=== PATIENT | male | born 1940 | race Caucasian/White ===

== ENCOUNTER 2016-12-16 07:50 | Day surgery (SDC) | payer MEDICARE ==
[2016-12-15 08:45] VITALS: BMI 26.5
[~2016-12-16 07:50] MED LIST: ALPRAZolam 0.25 MG TAB PO PRN; ALPRAZolam 0.5 MG TAB PO PRN; ASPIRIN 325 MG TAB PO STA; ATORVASTATIN 80 MG TAB PO STA; LIDOCAINE 1% INJ 10MG/ML (20 ML MDV) ONE; NITROGLYCERIN SL TABS 0.4 MG TAB SUBLINGUAL PRN; SODIUM CHLORIDE 0.9% 1,000 ML in EMPTY BAG 1 BAG IV ONE
[2016-12-16 08:19] VITALS: TEMP 98.1
[2016-12-16] MEDS ORDERED: MIDAZOLAM 2 MG/2 ML VIAL ONE (08:58)
[2016-12-16] MEDS ORDERED: diphenhydrAMINE 50 MG/ML 1 ML VIAL ONE (08:58)
[2016-12-16] MEDS ORDERED: diphenhydrAMINE 50 MG/ML 1 ML VIAL IVP ONE (09:09)
[2016-12-16] MEDS ORDERED: MIDAZOLAM 2 MG/2 ML VIAL IVP ONE (09:09)
[2016-12-16] MEDS ORDERED: LIDOCAINE 2% INJ 20 MG/ML SQ ONE (09:09)
[2016-12-16] MEDS ORDERED: IOHEXOL 350 MG/ML 100 ML BOTTLE INJ ONE (09:25)
[2016-12-16] MEDS ORDERED: SODIUM CHLORIDE 0.9% 1,000 ML IV SCH (09:30)
[2016-12-16] MEDS ORDERED: RX INFO: IV CONTRAST WAS GIVEN 1 EACH MISC MISCELLANE PRN (09:30)
--- NOTE | 2016-12-16 10:17 | CC ---
DATE OF SERVICE: INDICATION: Unstable angina. See my history physical. PROCEDURE NOTE: After explaining risks benifits and alternatives and obtaining informed consent, left heart catheterization and coronary angiogram were performed via the right femoral artery using standard Ron catheters. Patient tolerated the procedure well without any obvious immediate complications. A femoral angiogram was performed and Angio-Seal was deployed for hemostasis. FINDINGS: HEMODYNAMICS: Left ventricular end-diastolic pressure was 8 to 12 mm. There is no significant gradient across the aortic valve. LEFT VENTRICULOGRAM: Left ventriculogram was not performed. ANGIOGRAPHIC DATA: LEFT MAIN CORONARY ARTERY: Left main coronary artery appears calcified but is free of significant stenosis. It divides into left anterior descending coronary artery and circumflex coronary artery. LEFT ANTERIOR DESCENDING CORONARY ARTERY: LAD shows a 90% stenosis in its ostial portion. There is diffuse disease and there is a second lesion, which is about 70% in its midportion. Diag first and seconed have significant disease CIRCUMFLEX CORONARY ARTERY: Circumflex coronary artery is a nondominant vessel but is a large caliber vessel that is free of significant stenosis. RIGHT CORONARY ARTERY: Right coronary artery is a large dominant vessel, tortuous, shows a mild to moderate plaque in the midportion. CONCLUSION: 90% stenosis in the ostial portion of the left anterior descending artery with mild to moderate disease involving mid right coronary artery. PLAN: Patient will need bypass surgery of the LAD. I am going to have the cardiothoracic surgeon review the angiographic data. I am not sure if the RCA lesion is tight enough to be bypassed. MTDD
--- NOTE | 2016-12-16 10:19 | LTR ---
December 16, 2016 RE: James Falcon Dear Magdaleno: I performed cardiac catheterization on James Falcon. A detailed catheterization note is enclosed for your records. In brief the cardiac catheterization shows 90% stenosis involving the ostial portion of the LAD with a moderate stenosis involving mid LAD. There is mild to moderate disease involving mid right coronary artery. Given the proximal nature of the LAD lesion, the patient needs to undergo bypass surgery and I am going to have a cardiothoracic surgeon evaluate the patient. Thank you for giving us the privilege to participate in the care of this pleasant gentleman. Sincerely, KP BOBO MD
[2016-12-16] MEDS ORDERED: MD COMMUNICATION TO PHARMACY 1 EACH MISC PO ONE ×2 (10:29)
[2016-12-16 11:39] LABS: Basophils % (A) 1 %; CH 31.5; CHCM 34.5; Eosinophils # (A) 0.1 k/uL (0-0.7); Eosinophils % (A) 1 %; HCT 43.5 % (39.0-53.0); HDW 2.63; HGB 14.5 gm/dL (13.0-17.5); Luc # (Auto) 0.17; Luc % (Auto) 4; Lymphocytes # (A) 1.2 k/uL (1.0-4.8); Lymphocytes % (A) 25 %; MCH 30.6 pg (25.0-35.0); MCHC 33.4 g/dL (31.0-37.0); MCV 91.6 fL (80.0-100.0); Mean Platelet Volume 7.9; Monocytes # (A) 0.3 k/uL (0-1.0); Monocytes % (A) 6 %; Neutrophils # (A) 2.9 k/uL (1.3-7.7); Neutrophils % (A) 63 %; RBC 4.75 m/uL (4.30-5.90); RDW 12.6 % (11.5-15.5); WBC 4.7 k/uL (3.8-10.6); WBC (Perox) 4.82
[2016-12-16 11:57] LABS: ALT 43 U/L (21-72); AST 26 U/L (17-59); Alkaline Phosphatase 41 U/L (38-126); Anion Gap 9 mmol/L; Blood Urea Nitrogen 14 mg/dL (9-20); Calcium 8.9 mg/dL (8.4-10.2); Carbon Dioxide 27 mmol/L (22-30); Chloride 105 mmol/L (98-107); Cholesterol 120 mg/dL (<200); Glucose 90 mg/dL (74-99); HDL Cholesterol 47 mg/dL (40-60); Magnesium 2.1 mg/dL (1.6-2.3); Non-African American GFR(MDRD) >60 (>60 ml/min/1.73 sqM); Potassium 4.6 mmol/L (3.5-5.1); Sodium 141 mmol/L (137-145); Total Protein 6.4 g/dL (6.3-8.2); Triglycerides 73 mg/dL (<150)
[2016-12-16 12:03] LABS: Partial Thromboplastin Time 21.5 sec (22.0-30.0); Prothrombin Time 10.4 sec (9.0-12.0)
[2016-12-16 12:26] LABS: Hepatitis B Surface Ag Index 0.08
[2016-12-16 12:31] LABS: Hepatitis B Core IgM Index 0.06
[2016-12-16 12:43] LABS: Hepatitis C Virus IgG Index 0.02
[2016-12-16 12:47] LABS: Hepatitis C Virus IgG Ab Negative (Negative)
[2016-12-16 13:09] LABS: Appearance,Urine Clear (Clear); Bilirubin,Urine Negative (Negative); Glucose,Urine (UA) Negative (Negative); Ketones,Urine Negative (Negative); Leukocyte Esterase,Urine Negative (Negative); Nitrite,Urine Negative (Negative); PH, Urine 7.5 (5.0-8.0); Protein,Urine Negative (Negative); Specific Gravity,Urine 1.014 (1.001-1.035); UA Billing (MACRO vs. MICRO) CHEM; Urobilinogen,Urine <2.0 mg/dL (<2.0)
--- NOTE | 2016-12-16 13:41 | P.GSCN ---
<Nancy Fry - Last Filed: 12/16/16 13:39> History of Present Illness Consult date: 12/16/16 Reason for Consult: Evaluation for coronary artery bypass grafting. Requesting physician: Jordi Rizvi History of present illness: This 76-year-old gentleman has been followed by Dr. Rizvi for hypertension and dyslipidemia. He presented to to his office with complaints of chest discomfort 3 episodes which were mild in intensity, came on at rest and relieved spontaneously. He denied palpitations, syncope, diaphoresis, shortness of breath. He had a stress test last year which did not reveal any ischemia.as this chest discomfort was thought to be angina Dr. Riziv sent the patient for cardiac catheterization. The catheterization done 12/16/2016 revealedleft anterior descending coronary artery with 90% stenosis in the ostial portion,along with diffuse disease and a second lesion with about 70% stenosis midportion.the rest of the cath is as follows: Left main coronary artery calcified but free of significant stenosis. It divides into the left anterior descending artery and circumflex coronary artery.circumflex artery is large caliber free of significant stenosis. Right coronary artery is a large dominant artery which shows mild to moderate plaque in the midportion.due to these findings cardiothoracic surgery was consulted for potential coronary artery bypass grafting. Review of Systems 14 point review of systems done and negative except as noted below. - EENT EENT Comment(s): Very hard of hearing. - Cardiovascular Reports as per HPI, Reports high blood pressure Past Medical History Past Medical History: Chest Pain / Angina, CVA/TIA, Hyperlipidemia, Hypertension , Myocardial Infarction ([place]) Additional Past Medical History / Comment(s): CVA 2013-no residual Last Myocardial Infarction Date:: unk History of Any Multi-Drug Resistant Organisms: None Reported Past Surgical History: Appendectomy, Heart Catheterization, Hernia Repair, Joint Replacement Additional Past Surgical History / Comment(s): lt knee replaced Past Anesthesia/Blood Transfusion Reactions: No Reported Reaction Past Psychological History: No Psychological Hx Reported Smoking Status: Former smoker Past Alcohol Use History: Occasional Additional Past Alcohol Use History / Comment(s): quit smoking approx 1999's, smoked approx 50yrs approx 1ppd Past Drug Use History: None Reported - Past Family History Mother Family Medical History: No Reported History Father Family Medical History: No Reported History Medications and Allergies Home Medications Medication Instructions Recorded Confirmed Type Atenolol [Tenormin] 25 mg PO DAILY 12/15/16 12/20/16 History Atorvastatin [Lipitor] 20 mg PO DAILY 12/15/16 12/20/16 History Clopidogrel Bisulfate [Plavix] 75 mg PO DAILY 12/15/16 12/20/16 History Isosorbide Mononitrate ER [Imdur] 30 mg PO DAILY 12/15/16 12/20/16 History Nitroglycerin Sl Tabs [Nitrostat] 0.4 mg SUBLINGUAL Q5M PRN 12/15/16 12/20/16 History Vitamin E 1,000 unit PO DAILY 12/15/16 12/20/16 History amLODIPine [Norvasc] 10 mg PO DAILY 12/15/16 12/20/16 History Allergies Allergy/AdvReac Type Severity Reaction Status Date / Time No Known Allergies Allergy Verified 12/20/16 15:16 Surgical - Exam Vital Signs Temp Pulse Resp BP Pulse Ox 98.1 F 53 L 20 134/62 98 12/16/16 08:16 12/16/16 08:16 12/16/16 08:16 12/16/16 08:16 12/16/16 08:16 - General well developed, well nourished, no distress - Eyes PERRL, normal ocular movement - ENT decreased hearing - Neck no masses - Respiratory normal expansion, normal respiratory effort, clear to auscultation - Cardiovascular Rhythm: regular Heart Sounds: normal: S1, S2 - Abdomen Abdomen: soft, non tender, bowel sounds - Genitourinary deferred - Rectum deferred - Integumentary no rash, no growths, no abnormal pigmentation - Neurologic normal coordination, normal sensation - Musculoskeletal Strength equal bilaterally. Unable to assess gait as patient is on bedrest at this time. - Psychiatric oriented to time, oriented to person, oriented to place, speech is normal Results - Labs 12/16/16 11:25 12/16/16 11:25 Abnormal Lab Results - Last 24 Hours (Table) 12/16/16 Range/Units 11:25 APTT 21.5 L (22.0-30.0) sec Diabetes panel 12/16/16 Range/Units 11:25 Sodium 141 (137-145) mmol/L Potassium 4.6 (3.5-5.1) mmol/L Chloride 105 (98-107) mmol/L Carbon Dioxide 27 (22-30) mmol/L BUN 14 (9-20) mg/dL Creatinine 0.87 (0.66-1.25) mg/dL Glucose 90 (74-99) mg/dL Calcium 8.9 (8.4-10.2) mg/dL AST 26 (17-59) U/L ALT 43 (21-72) U/L Alkaline Phosphatase 41 (38-126) U/L Total Protein 6.4 (6.3-8.2) g/dL Albumin 3.9 (3.5-5.0) g/dL Triglycerides 73 (<150) mg/dL HDL Cholesterol 47 (40-60) mg/dL Thyroid panel 12/16/16 Range/Units 11:25 TSH 1.100 (0.465-4.680) mIU/L Calcium panel 12/16/16 Range/Units 11:25 Calcium 8.9 (8.4-10.2) mg/dL Albumin 3.9 (3.5-5.0) g/dL Pituitary panel 12/16/16 Range/Units 11:25 Sodium 141 (137-145) mmol/L Potassium 4.6 (3.5-5.1) mmol/L Chloride 105 (98-107) mmol/L Carbon Dioxide 27 (22-30) mmol/L BUN 14 (9-20) mg/dL Creatinine 0.87 (0.66-1.25) mg/dL Glucose 90 (74-99) mg/dL Calcium 8.9 (8.4-10.2) mg/dL TSH 1.100 (0.465-4.680) mIU/L Adrenal panel 12/16/16 Range/Units 11:25 Sodium 141 (137-145) mmol/L Potassium 4.6 (3.5-5.1) mmol/L Chloride 105 (98-107) mmol/L Carbon Dioxide 27 (22-30) mmol/L BUN 14 (9-20) mg/dL Creatinine 0.87 (0.66-1.25) mg/dL Glucose 90 (74-99) mg/dL Calcium 8.9 (8.4-10.2) mg/dL Total Bilirubin 1.0 (0.2-1.3) mg/dL AST 26 (17-59) U/L ALT 43 (21-72) U/L Alkaline Phosphatase 41 (38-126) U/L Total Protein 6.4 (6.3-8.2) g/dL Albumin 3.9 (3.5-5.0) g/dL - Imaging Chest x-ray: pending EKG: image reviewed Additional studies: carotid Dopplers, vein mapping, lab work pending Assessment and Plan (1) Coronary artery disease Status: Acute (2) Hypertension Status: Acute (3) Hyperlipidemia Status: Acute (4) History of stroke Status: Acute Plan: 1. Obtain preop testing including lab work, carotid Dopplers, vein mapping, chest x-ray. 2. Plan for coronary artery bypass graft surgery , 12/23/2016 pending preop testing workup. 3. Preop CABG teaching done with patient and granddaughter. 4. Will consult Dr. 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 5. Encouragement of risk factor management. 6. More recommendations as patient progresses. <James Garcia R - Last Filed: 12/20/16 15:44> Surgical - Exam Vital Signs Temp Pulse Resp BP Pulse Ox 98.1 F 53 L 20 134/62 98 12/16/16 08:16 12/16/16 08:16 12/16/16 08:16 12/16/16 08:16 12/16/16 08:16 Results - Labs 12/16/16 11:25 12/16/16 11:25 Assessment and Plan Plan: Reviwed cath, discussed case with Dr Rizvi. Patient interviewed and examined. Met with patient, discussed indications for surgery, risks versus benefits, alternatives, possible complications. All questions answered. CABG next week
[2016-12-16 14:12] VITALS: PULSE 67
[2016-12-16 14:16] VITALS: RESP 20
[2016-12-16 14:17] LABS: Hemoglobin A1C 5.3 % (4.2-6.1)
[2016-12-16 15:18] VITALS: BP 132/75
--- NOTE | 2016-12-16 15:34 | XR ---
EXAMINATION TYPE: XR chest 2V DATE OF EXAM: 12/16/2016 3:26 PM HISTORY: Presurgical clearance. REFERENCE: Previous study dated 01/28/2014. FINDINGS: The lungs are clear. Pleural spaces are clear. Heart size is normal. IMPRESSION: NORMAL CHEST.
--- NOTE | 2016-12-29 10:47 | P.VSCSTY ---
Greater Saphenous Vein Mapping This is bilateral lower extremity greater saphenous vein mapping. Date of service 12/16/2016 Vein quality and ultrasound appearance normal however lower legs on both sides are quite small. Vein size groin right 5 x 7 groin left 6.3 x 6.1 High thigh right 3.6 x 4.7 high thigh left 3.9 x 3.9 Mid thigh right 3.1 x 4.3 mid thigh left to 2.2 x 2.4 Above-knee right to 0.9 x 4.1 above-knee left 2.0 x 2.3 Below knee right 3.2 x 4.1 below-knee left 2.1 x 2.6 Mid calf right 1.5 x 1.8 mid calf left 1.9 x 2.3 Ankle right 1.7 x 2.1 ankle left 1.5 x 1.8 Impression usable bilateral greater saphenous veins. However, below the knee on both sides are very small and may not be usable..
== END 2016-12-16 15:30 | disposition home or self-care (01) ==
LOC: CATHCVL 07:50
PROVIDERS: ATTEND Internal Medicine Cardiovascular Disease
DX: I25.110 Atherosclerotic heart disease of native coronary artery with unstable angina pectoris (principal); Z01.818 Encounter for other preprocedural examination; I10 Essential (primary) hypertension; I77.1 Stricture of artery; E78.5 Hyperlipidemia, unspecified; E78.00 Pure hypercholesterolemia, unspecified; Z87.891 Personal history of nicotine dependence; Z82.49 Family history of ischemic heart disease and other diseases of the circulatory system; Z86.73 Personal history of transient ischemic attack (TIA), and cerebral infarction without residual deficits; Z79.899 Other long term (current) drug therapy
CPT/HCPCS: 99152; 99153 ×2; 94150; 93458; 86900; 86901; 83880; 80061; 80053; 80074; 84443; 83036; 83735; 84484; 85025; 85610; 85730; 86850; 86920; 81003; 87070; 87086; 71020; 93970; C1760; C1894; C1769; J2001; J2250; J1200; Q9967

== ENCOUNTER 2016-12-23 09:30 | Inpatient (IN) | payer MEDICARE ==
[2016-12-24] MEDS ORDERED: PAPAVERINE 360 MG in SODIUM CHLORIDE 0.9% 90 ML IV ONE (05:00)
[2016-12-24] MEDS ORDERED: MAGNESIUM SULFATE MG 500 MG/ML VIAL IV ONE (05:00)
[2016-12-24] MEDS ORDERED: PROTAMINE SULFATE 250 MG in EMPTY BAG 1 BAG IV ONE (05:00)
[2016-12-24] MEDS ORDERED: LACTATED RINGERS 1,000 ML IV ONE (05:00)
[2016-12-24] MEDS ORDERED: HEPARIN SODIUM 1,000 UNIT/ML VIAL IV ONE (05:00)
[2016-12-24] MEDS ORDERED: HEPARIN SODIUM,PORCINE 5,000 UNIT in SODIUM CHLORIDE 0.9% 500 ML IV ONE (05:00)
[2016-12-24] MEDS ORDERED: PHENYLEPHRINE 40 MG in SODIUM CHLORIDE 0.9% 250 ML IV ONE (05:00)
[2016-12-24] MEDS ORDERED: ASPIRIN 325 MG TAB PO ONE (05:00)
[2016-12-24] MEDS ORDERED: ceFAZolin 2,000 MG in SODIUM CHLORIDE 0.9% 30 ML IVPB ONE ×4 (05:00)
[2016-12-24] MEDS ORDERED: INSULIN REGULAR 100 UNIT in SODIUM CHLORIDE 0.9% 100 ML IV ONE (05:00)
[2016-12-24] MEDS ORDERED: NITROGLYCERIN-D5W PMX 25 MG/250 ML BTL IV ONE (05:00)
[2016-12-24] MEDS ORDERED: PROPOFOL 50 ML IV ONE (05:00)
[2016-12-24] MEDS ORDERED: SODIUM BICARB 8.4% 50 ML SYR (1 MEQ/ML) IV ONE (05:00)
[2016-12-24] MEDS ORDERED: CHLORHEXIDINE GLUCONATE 15 ML CUP MUCOUS MEM ONE (05:00)
[2016-12-24] MEDS ORDERED: CARDIOPLEGIC SOLN (K+ 16 MEQ/L 1,000 ML with SODIUM BICARB (1 MEQ/ML) 20 ML, LIDOCAINE ... PERFUSION ONE ×3 (05:00)
[2016-12-24] MEDS ORDERED: NOREPINEPHRINE 4 MG in SODIUM CHLORIDE 0.9% 250 ML IV ONE (05:00)
[2016-12-24] MEDS ORDERED: ATORVASTATIN 10 MG TAB PO ONE (05:00)
[2016-12-24] MEDS ORDERED: ALBUMIN HUMAN 5% 500 ML IVPB ONE (05:00)
[2016-12-24] MEDS ORDERED: PROTAMINE SULFATE 10 MG/ML 25 ML VIAL IV ONE (05:00)
[2016-12-24] MEDS ORDERED: NITROGLYCERIN SL TABS 0.4 MG TAB SUBLINGUAL ONE (05:00)
[2016-12-24] MEDS ORDERED: CLEVIDIPINE BUTYRATE 25 MG in EMPTY BAG 1 BAG IV ONE (05:00)
[2016-12-24] MEDS ORDERED: MUPIROCIN 2% OINT 22 GM TUBE NASAL ONE (05:00)
[2016-12-24] MEDS ORDERED: ALBUMIN HUMAN 25% 50 ML IV ONE (05:00)
[2016-12-24] MEDS ORDERED: CALCIUM CHLORIDE 100 MG/ML 10 ML SYRINGE IV ONE (05:00)
[2016-12-24] MEDS ORDERED: PHENYLEPHRINE-0.9% NACL SYG 1 MG/10 ML SYRINGE IV ONE (05:00)
[2016-12-24] MEDS ORDERED: SODIUM CHLORIDE 0.9% 1,000 ML IV ONE (05:00)
[2016-12-24] MEDS ORDERED: NITROGLYCERIN-D5W PMX 50 MG in DEXTROSE/WATER 1 250ML.BAG IV ONE (05:00)
[2016-12-24] MEDS ORDERED: ceFAZolin 1,000 MG in SODIUM CHLORIDE 0.9% IRRIGATIO 1,000 ML IRRIGATION ONE (05:00)
[2016-12-24] MEDS ORDERED: MIDAZOLAM 2 MG/2 ML VIAL IV PRN (05:38)
[2016-12-24] MEDS ORDERED: ONDANSETRON 4 MG/2 ML VIAL IVP ONE (05:38)
[2016-12-24] MEDS ORDERED: HYDROmorphone 1 MG/ML 1 ML SYRINGE IVP PRN (05:38)
[2016-12-24] MEDS ORDERED: LACTATED RINGERS 1,000 ML IV SCH (05:38)
[2016-12-24] MEDS: METOPROLOL TARTRATE 12.5 MG TAB PO ONE (07:13)
[2016-12-24] MEDS ORDERED: CALCIUM CHLORIDE 100 MG/ML 10 ML SYRINGE ONE (10:54)
[2016-12-24] MEDS ORDERED: SODIUM CHLORIDE 0.9% IRRIG 1,000 ML BTL IRRIGATION ONE (10:54)
[2016-12-24] MEDS ORDERED: PROPOFOL 10 MG/ML 20 ML VIAL IV ONE (10:54)
[2016-12-24] MEDS ORDERED: fentaNYL (PF) 50 MCG/ML 50 ML VIAL ONE (10:54)
[2016-12-24] MEDS ORDERED: VECURONIUM 10 MG VIAL IV ONE (10:54)
[2016-12-24] MEDS ORDERED: MIDAZOLAM 2 MG/2 ML VIAL ONE (10:54)
[2016-12-24] MEDS ORDERED: HEPARIN SODIUM,PORCINE 10,000 UNIT/ML 1 ML VIAL ONE (10:54)
[2016-12-24] MEDS ORDERED: PHENYLEPHRINE-0.9% NACL SYG 1 MG/10 ML SYRINGE ONE (10:54)
[2016-12-24] MEDS ORDERED: MORPHINE SULFATE 10 MG/ML SYRINGE ONE (10:54)
[2016-12-24] MEDS ORDERED: HEPARIN SODIUM,PORCINE 5,000 UNIT/ML 1 ML VIAL ONE (10:54)
[2016-12-24] MEDS ORDERED: PROTAMINE SULFATE 10 MG/ML 5 ML VIAL IV ONE (10:54)
[2016-12-24 11:58] LABS: Glucose,Whole Blood 94 mg/dL (75-99)
[2016-12-24 12:41] LABS: Glucose,Whole Blood 107 mg/dL (75-99)
[2016-12-24 13:04] LABS: Glucose,Whole Blood 108 mg/dL (75-99)
[2016-12-24 14:06] LABS: Glucose,Whole Blood 76 mg/dL (75-99)
[2016-12-24] MEDS ORDERED: Magnesium Replacement Protocol 1 EACH MISC MISCELLANE PRN ×2 (14:27→15:36)
[2016-12-24] MEDS ORDERED: METOCLOPRAMIDE 5 MG/ML 2 ML VIAL IVP PRN (14:27)
[2016-12-24] MEDS ORDERED: Phosphorus Replacement Protoco 1 EACH MISC MISCELLANE PRN (14:27)
[2016-12-24] MEDS ORDERED: Potassium Replacement Protocol 1 EACH MISC MISCELLANE PRN (14:27)
[2016-12-24] MEDS ORDERED: BENZOCAINE/MENTHOL LOZENG 1 EACH LOZENGE MUCOUS MEM PRN (14:27)
[2016-12-24] MEDS ORDERED: ONDANSETRON 4 MG/2 ML VIAL IVP PRN (14:27)
[2016-12-24] MEDS ORDERED: CALCIUM GLUCONATE 2,000 MG in SODIUM CHLORIDE 0.9% 100 ML IVPB ONE (14:27)
--- NOTE | 2016-12-24 14:32 | P.OP ---
Date of Procedure: 12/24/16 Preoperative Diagnosis: Coronary artery disease Postoperative Diagnosis: Coronary artery disease Procedure(s) Performed: Off-pump CABG 3 with ISIDRO to LAD and SVG sequentially to diagonal 1 and diagonal 2, endovascular vein harvest of the right greater saphenous vein Anesthesia: GETA Surgeon: James Garcia Box Inspector #1: Hoang Carlisle Box Inspector #2: Mick Vogel Estimated Blood Loss (ml): 50 IV fluids (ml): 2,000 Urine output (ml): 5,000 Pathology: none sent Condition: stable Disposition: ICU Indications for Procedure: 76-year-old male with worsening exertional angina and severe proximal left anterior descending coronary artery disease Operative Findings: Good ISIDRO, good saphenous vein, diseased targets. Ventricular function near normal. Trivial mitral regurgitation. Description of Procedure: Patient was brought to the operating room, placed supine on the operating table , anesthetized and intubated. [place]-Stephan catheter had been placed via the right internal jugular approach. [place] and nasogastric tube were placed. LAM probe was placed. LAM findings are noted above. The anterior torso and lower extremities were sterilely prepped and draped. The left greater saphenous vein was harvested with endovascular vein harvest technique. Simultaneous sternotomy was performed a left hemisternum retracted upwards and the left internal mammary artery harvested on a vascularized pedicle. The left pleural space was drained with a 32-Guyanese chest tube. Standard sternal retractor was placed. The pericardium was opened in the midline and the heart exposed with pericardial sutures. Patient was systemically heparinized and the ACT maintained greater than 250 during grafting. The ISIDRO to the LAD was performed first. The LAD was a good vessel distally however there was a large plaque present at the takeoff of the third diagonal branch. Was decided to open across this plaque and do a patch angioplasty with the ISIDRO across this. The LAD was opened and blood flow control with a 1.5 mm flow through. It was a 1.75 mm vessel. ISIDRO was prepared appropriately and 8-0 Prolene was used to anastomose the ISIDRO to the LAD. The anastomosis was about 2 cm in length across this plaque at the takeoff of the third diagonal branch. Next an appropriate length of saphenous vein was loaded on passport anastomotic connector and connected to the ascending aorta just to the left of midline in the mid ascending aorta. Was brought beneath the ISIDRO and a [id number]-[id number] anastomosis was constructed to the first diagonal branch. This was a 2 mm vessel of good quality. It was opened and blood flow control with a 1.5 mm flow through. Anastomosis was constructed with running 7-0 Prolene suture. On completion of the anastomosis the flow through was removed effectively probing the proximal distal portion anastomosis. Blood flow at the end of the vein graft was controlled with a bulldog clamp. Next the distal anastomosis from the vein graft to the second diagonal branch was constructed. Second diagonal branch was a 1.5 mm vessel with proximal disease but relatively disease-free distally.'s opened beyond the disease and blood flow control with a 1.5 mm flow through. End to side anastomosis constructed with running 7-0 Prolene suture. On completion of the anastomosis the flow through was removed 50 probe the proximal distal portion anastomosis. Was tied with good result and hemostasis. Inflow was opened, the graft was noted to lay well, the heart was lowered in anatomic position, heparin was reversed with protamine, good hemostasis was obtained throughout. Chest was closed with 8 sternal wires after irrigating the mediastinum with antibiotic solution and draining it with a 36-Guyanese chest tube. Fascia was closed with 0 Ethibond. Subcutaneous and subcuticular layers with layers of Vicryl suture. Dry sterile dressings were applied the patient was transferred to ICU in stable condition. No blood transfusions were required the patient was on no inotropic support.
[2016-12-24 15:10] LABS: Glucose,Whole Blood 101 mg/dL (75-99)
[2016-12-24 15:16] LABS: Basophils # (A) 0.1 k/uL (0-0.2); Basophils % (A) 1 %; CH 31.5; CHCM 35.7; Eosinophils # (A) 0.1 k/uL (0-0.7); Eosinophils % (A) 1 %; HDW 2.68; HGB 13.5 gm/dL (13.0-17.5); Luc # (Auto) 0.09; Luc % (Auto) 1; Lymphocytes # (A) 0.9 k/uL (1.0-4.8); Lymphocytes % (A) 10 %; MCH 30.6 pg (25.0-35.0); MCHC 34.5 g/dL (31.0-37.0); MCV 88.6 fL (80.0-100.0); Mean Platelet Volume 8.4; Monocytes # (A) 0.5 k/uL (0-1.0); Monocytes % (A) 6 %; Neutrophils # (A) 7.2 k/uL (1.3-7.7); Neutrophils % (A) 82 %; RBC 4.41 m/uL (4.30-5.90); RDW 12.5 % (11.5-15.5); WBC 8.9 k/uL (3.8-10.6); WBC (Perox) 9.41
[2016-12-24 15:22] LABS: Ionized Calcium 5.1 mg/dL (4.5-5.3)
[2016-12-24 15:29] LABS: Glucose,Whole Blood 84 mg/dL (75-99)
[2016-12-24 15:29] LABS: ALT 29 U/L (21-72); AST 29 U/L (17-59); Alkaline Phosphatase 40 U/L (38-126); Anion Gap 7 mmol/L; Blood Urea Nitrogen 12 mg/dL (9-20); Calcium 8.1 mg/dL (8.4-10.2); Carbon Dioxide 22 mmol/L (22-30); Chloride 107 mmol/L (98-107); Glucose 105 mg/dL (74-99); Magnesium 1.6 mg/dL (1.6-2.3); Non-African American GFR(MDRD) >60 (>60 ml/min/1.73 sqM); Potassium 4.2 mmol/L (3.5-5.1); Sodium 136 mmol/L (137-145); Total Bilirubin 0.9 mg/dL (0.2-1.3)
[2016-12-24 15:35] LABS: INR 1.1 (<1.1)
[2016-12-24 15:39] LABS: Partial Thromboplastin Time 19.6 sec (22.0-30.0)
--- NOTE | 2016-12-24 15:41 | XR ---
EXAMINATION TYPE: XR chest 1V portable DATE OF EXAM: 12/24/2016 3:37 PM HISTORY: Post Op CABG COMPARISON: 12/16/2016 TECHNIQUE: Single view of the chest is submitted. FINDINGS: Endotracheal tube, NG tube, SG catheter, mediastianal drains and chest tubes are appropriately placed . Post operative changes of CABG. No sizeable pneumothorax. Scattered Pleural-parencymal opacities may reflect atelectasis. The heart is not enlarged. IMPRESSION: 1. Post operative changes of CABG.
[2016-12-24 15:50] LABS: Glucose,Whole Blood 132 mg/dL (75-99)
[2016-12-24] MEDS: MAGNESIUM SULFATE-D5W PMX 1 GM in DEXTROSE/WATER 1 100ML.BAG IVPB SCH ×2 (16:03→17:07)
[2016-12-24] MEDS: CLEVIDIPINE BUTYRATE 25 MG in EMPTY BAG 1 BAG IV SCH ×2 (16:04→21:27)
[2016-12-24 16:08] LABS: ABG PCO2 39 mmHg (35-45); ABG PH 7.38 (7.35-7.45); ABG PO2 220 mmHg (83-108)
[2016-12-24 16:09] LABS: ABG Base Excess -1.9 mmol/L; ABG HCO3 22 mmol/L (21-25); ABG TCO2 24 mmol/L (19-24)
[2016-12-24] MEDS: PROPOFOL 500 MG in EMPTY BAG 1 BAG IV SCH ×2 (16:12→20:10)
[2016-12-24] MEDS: LACTATED RINGERS 1,000 ML IV SCH (16:14)
[2016-12-24] MEDS: NITROGLYCERIN-D5W PMX 50 MG in DEXTROSE/WATER 1 250ML.BAG IV SCH (16:17)
[2016-12-24] MEDS: IPRATROPIUM-ALBUTEROL 3 ML NEB INHALATION SCH ×2 (16:34→19:35)
--- NOTE | 2016-12-24 17:05 | P.CNPUL ---
History of Present Illness Consult date: 12/24/16 Chief complaint: Thoracotomy, coronary bypass surgery History of present illness: 76-year-old male patient underwent three-vessel bypass surgery and the patient was brought into the intensive care unit and a critically care management consultation was placed. The patient is currently sedated with Diprivan at 50 mics. His intubated on a mechanical ventilator at a rate of 12, tidal volume 550, FiO2 initiate 100% currently is down to 50% and a PEEP of 5. Post surgical chest x-ray shows adequate expansion of both lungs, ET tube is in a good location, there is a mediastinal and the left pleural chest tube, [place]- Stephan catheter in place and NG tube is in place. Hemodynamically, the patient has a PA pressure of 35/20 with a cardiac index of 2.3. The patient is on a clevidipine drip at the rate of 6 mg an hour and the patient is also on nitroglycerin at 25 mcg/m. He is producing adequate amount of urine output. Output from the chest tube is minimal and the total amount of output from the chest tube since his arrival is 100. He is sedated with Diprivan at 50 mics. His an alcoholic. He drinks alcohol on a daily basis and drinks shock. The patient is also on an insulin drip for blood sugar control. No other significant events postop. He is a ex-smoker. No reported history of COPD. Review of Systems Further review of systems cannot be obtained as the patient is currently intubated on a mechanical ventilator ROS unobtainable: due to endotracheal tube Past Medical History Past Medical History: Chest Pain / Angina, CVA/TIA, Hyperlipidemia, Hypertension , Myocardial Infarction ([place]) Additional Past Medical History / Comment(s): Coronary artery disease with diffuse LAD involvement. Please refer to the cardiac catheter patient reports. Hypertension, CVA back in 2013 without any residual deficits, alcoholism Last Myocardial Infarction Date:: unk History of Any Multi-Drug Resistant Organisms: None Reported Past Surgical History: Appendectomy, Heart Catheterization, Hernia Repair, Joint Replacement Additional Past Surgical History / Comment(s): Left knee arthroplasty Past Anesthesia/Blood Transfusion Reactions: No Reported Reaction Past Psychological History: No Psychological Hx Reported Smoking Status: Former smoker Past Alcohol Use History: Occasional Additional Past Alcohol Use History / Comment(s): quit smoking approx , smoked approx 50 yrs 1ppd Past Drug Use History: None Reported - Past Family History Father Family Medical History: No Reported History Mother Family Medical History: No Reported History Medications and Allergies Home Medications Medication Instructions Recorded Confirmed Type Atenolol [Tenormin] 25 mg PO DAILY 12/15/16 12/24/16 History Clopidogrel Bisulfate [Plavix] 75 mg PO DAILY 12/15/16 12/24/16 History Isosorbide Mononitrate ER [Imdur] 30 mg PO DAILY 12/15/16 12/24/16 History Nitroglycerin Sl Tabs [Nitrostat] 0.4 mg SUBLINGUAL Q5M PRN 12/15/16 12/24/16 History Vitamin E 1,000 unit PO DAILY 12/15/16 12/24/16 History amLODIPine [Norvasc] 10 mg PO DAILY 12/15/16 12/24/16 History Aspirin 325 mg PO ONCE 12/24/16 12/24/16 History Atorvastatin Calcium [Atorvastatin 20 mg PO DAILY 12/24/16 12/24/16 History Calcium] Allergies Allergy/AdvReac Type Severity Reaction Status Date / Time No Known Allergies Allergy Verified 12/24/16 06:44 Physical Exam Vitals: Vital Signs Temp Pulse Pulse Pulse Resp BP BP 12/24/16 16:30 58 L 108/60 12/24/16 16:20 57 L 108/60 12/24/16 16:10 57 L 108/60 12/24/16 16:00 58 L 108/60 12/24/16 15:50 55 L 108/60 12/24/16 15:40 55 L 108/60 12/24/16 15:30 56 L 12/24/16 15:20 50 L 12 108/60 12/24/16 15:10 50 L 12 12/24/16 15:00 51 L 12 12/24/16 14:51 52 L 12/24/16 07:01 97.9 F 56 L 58 L 16 150/78 BP Pulse Ox 12/24/16 16:30 97 12/24/16 16:20 98 12/24/16 16:10 97 12/24/16 16:00 98 12/24/16 15:50 100 12/24/16 15:40 100 12/24/16 15:30 100 12/24/16 15:20 100 12/24/16 15:10 100 12/24/16 15:00 100 12/24/16 14:51 100 12/24/16 07:01 160/78 98 Intake and Output 12/24/16 12/24/16 12/24/16 06:59 14:59 22:59 Intake Total 92 100.033 Output Total 2250 255 Balance -2158 -154.967 Intake: IV 42 Intake, IV Titration 50 100.033 Amount Clevidipine Butyrate 25 0.033 mg In Empty Bag 1 bag @ 1 MG/HR 2 mls/hr IV .Q24H EDGARDO Rx#:[id number] Lactated Ringers 1,000 ml 50 100 @ 50 mls/hr IV .Q20H EDGARDO Rx#:[id number] Output: Chest Tube Drainage 50 80 Left Pleural/Mediastinal 50 80 Urine 1400 175 Estimated Blood Loss 800 Other: Weight 84 kg Patient Weight 12/25/16 06:59 Weight 84 kg ABP, PAP, CO, CI - Last 8 Hours Arterial Blood Pressure 124/58 Arterial Blood Pressure 122/54 Arterial Blood Pressure 113/54 Arterial Blood Pressure 119/59 Arterial Blood Pressure 118/53 Arterial Blood Pressure 116/53 Arterial Blood Pressure 123/54 Arterial Blood Pressure 183/86 Arterial Blood Pressure 168/79 Arterial Blood Pressure 153/80 Pulmonary Artery Pressure 35/22 Pulmonary Artery Pressure 34/20 Pulmonary Artery Pressure 37/23 Pulmonary Artery Pressure 37/23 Pulmonary Artery Pressure 34/20 Pulmonary Artery Pressure 31/18 Pulmonary Artery Pressure 33/19 Pulmonary Artery Pressure 32/19 Pulmonary Artery Pressure 31/17 Pulmonary Artery Pressure 28/16 Cardiac Output 4.7 Cardiac Output 4.7 Cardiac Output 4.7 Cardiac Output 4.7 Cardiac Output 4.7 Cardiac Output 4.4 Cardiac Output 4.4 Cardiac Output 4.4 Cardiac Output 3.9 Cardiac Output 3.9 Cardiac Index 2.3 Cardiac Index 2.2 Cardiac Index 1.9 Head exam was generally normal. There was no scleral icterus or corneal arcus. Mucous membranes were moist.Neck was supple and without jugular venous distension, thyromegaly, or carotid bruits. Carotids were easily palpable bilaterally. There was no adenopathy. The patient has a [place]-Stephan catheter in the right IJ. Orogastric and orotracheal tube are both in place.Lungs were clear to auscultation and percussion, and with normal diaphragmatic excursion. No wheezes or rales were noted. Sternum stable clean and intact. The patient has a mediastinal and the left pleural chest tube in place.Cardiac exam revealed the PMI to be normally situated and sized. The rhythm was regular and no extrasystoles were noted during several minutes of auscultation. The first and second heart sounds were normal and physiologic splitting of the second heart sound was noted. There were no murmurs, rubs, clicks, or gallops.Abdominal exam revealed normal bowel sounds. The abdomen was soft, non- tender, and without masses, organomegaly, or appreciable enlargement of the abdominal aorta.Examination of the extremities revealed easily palpable radial, femoral and pedal pulses. There was no cyanosis, clubbing or edema. Results - Laboratory Findings CBC and BMP: 12/24/16 15:11 12/24/16 15:11 ABG ABG pH 7.38 (7.35-7.45) 12/24/16 15:30 ABG pCO2 39 mmHg (35-45) 12/24/16 15:30 ABG pO2 220 mmHg (83-108) H 12/24/16 15:30 ABG O2 Saturation 100.0 % (94-97) H 12/24/16 15:30 PT/INR, D-dimer PT 11.0 sec (9.0-12.0) 12/24/16 15:04 INR 1.1 (<1.1) 12/24/16 15:04 Abnormal lab findings: Abnormal Labs 12/16/16 12/24/16 12/24/16 11:25 12:38 13:03 Plt Count Lymphocytes # APTT ABG pO2 ABG O2 Saturation Sodium Creatinine Glucose POC Glucose (mg/dL) 107 H 108 H Calcium Total Protein Albumin Crossmatch See Detail 12/24/16 12/24/16 12/24/16 15:02 15:04 15:11 Plt Count 134 L Lymphocytes # 0.9 L APTT 19.6 L ABG pO2 ABG O2 Saturation Sodium Creatinine Glucose POC Glucose (mg/dL) 101 H Calcium Total Protein Albumin Crossmatch 12/24/16 12/24/16 12/24/16 15:11 15:30 15:48 Plt Count Lymphocytes # APTT ABG pO2 220 H ABG O2 Saturation 100.0 H Sodium 136 L Creatinine 0.65 L Glucose 105 H POC Glucose (mg/dL) 132 H Calcium 8.1 L Total Protein 5.0 L Albumin 2.6 L Crossmatch - Diagnostic Findings Chest x-ray: image reviewed Assessment and Plan Plan: Assessment 1 multivessel coronary artery disease and the patient is post three-vessel bypass surgery, postop day #0. 2 post thoracotomy, currently still on a ventilator, expected vent support postsurgical and the patient should be able to be weaned within the next few hours 3 stable hemodynamics 4 postoperative hypertension currently on a combination of nitroglycerin and clevidipine 5 alcoholism Plan Weaned down the FiO2 as low as 40% to maintain a saturation above 95%. Started gradually weaning the Diprivan and assess the patient's weaning parameters once awakened proceed with this point is breathing trial. Her blood gases will be checked and if adequate the patient will be considered for extubation. Anticipate extubation within next few hours. Chest x-rays showing standard postsurgical changes. Output from the chest tube is minimal and the patient has stable hemodynamics. Wean off nitroglycerin. Wean off clevidipine drip. We'll follow and watch for any signs of delirium tremens knowing that the patient has a component of alcoholism.
[2016-12-24 17:16] LABS: Glucose,Whole Blood 172 mg/dL (75-99)
[2016-12-24] MEDS: ACETAMINOPHEN IV (For NPO) 1,000 MG in EMPTY BAG 1 BAG IVPB SCH ×2 (17:42→22:56)
[2016-12-24] MEDS: MORPHINE SULFATE 2 MG/ML SYRINGE IVP PRN ×3 (17:45→21:31)
[2016-12-24 18:05] LABS: Glucose,Whole Blood 174 mg/dL (75-99)
[2016-12-24 18:25] LABS: Basophils % (A) 0 %; CH 31.3; CHCM 34.8; Eosinophils # (A) 0.1 k/uL (0-0.7); Eosinophils % (A) 1 %; HCT 44.3 % (39.0-53.0); HDW 2.65; HGB 14.9 gm/dL (13.0-17.5); Luc # (Auto) 0.13; Luc % (Auto) 1; Lymphocytes % (A) 8 %; MCH 30.4 pg (25.0-35.0); MCHC 33.7 g/dL (31.0-37.0); MCV 90.2 fL (80.0-100.0); Mean Platelet Volume 7.4; Monocytes # (A) 0.8 k/uL (0-1.0); Monocytes % (A) 6 %; Neutrophils # (A) 10.7 k/uL (1.3-7.7); Neutrophils % (A) 85 %; RBC 4.92 m/uL (4.30-5.90); RDW 12.7 % (11.5-15.5); WBC 12.6 k/uL (3.8-10.6); WBC (Perox) 12.93
[2016-12-24 18:28] LABS: Ionized Calcium 5.1 mg/dL (4.5-5.3)
[2016-12-24 18:37] LABS: Anion Gap 8 mmol/L; Blood Urea Nitrogen 14 mg/dL (9-20); Calcium 8.1 mg/dL (8.4-10.2); Carbon Dioxide 21 mmol/L (22-30); Chloride 105 mmol/L (98-107); Glucose 179 mg/dL (74-99); Magnesium 2.7 mg/dL (1.6-2.3); Non-African American GFR(MDRD) >60 (>60 ml/min/1.73 sqM); Phosphorous 4.1 mg/dL (2.5-4.5); Potassium 4.2 mmol/L (3.5-5.1); Sodium 134 mmol/L (137-145)
[2016-12-24 18:46] LABS: Prothrombin Time 10.4 sec (9.0-12.0)
[2016-12-24 19:07] LABS: Glucose,Whole Blood 173 mg/dL (75-99)
--- NOTE | 2016-12-24 19:27 | CONS ---
DATE OF CONSULTATION: Mr. Falcon is a 76-year-old male who underwent coronary bypass grafting today by Dr. Garcia. He has been followed by Dr. Rizvi in the past, was admitted to the hospital on the december and underwent cardiac catheterization and was found to have an ostial LAD lesion. Patient received ISIDRO to LAD with saphenous vein graft to the diagonal 1 and 2. He had mild disease in the right coronary artery. His coronary risk factors are remarkable for the history of hypertension, hyperlipidemia, and a family history of premature coronary artery disease. His medications prior to admission included: 1. Amlodipine 10 mg daily. 2. Lipitor 20 mg daily. 3. Tenormin 25 mg daily. 4. Isosorbide mononitrate 30 mg daily. 5. Aspirin. REVIEW OF SYSTEMS: Could not be obtained. PHYSICAL EXAMINATION: A 76-year-old male intubated, sedated. Blood pressure 126/50 with a heart in the 60s. His blood pressure was on the low side earlier according to nursing staff. HEAD: Normocephalic. EYES: Sclerae anicteric. NECK: [place]-Stephan in place. LUNGS: Clear to auscultation anteriorly. CARDIOVASCULAR: Regular rate and rhythm. S1, S2, no S3, no rub. ABDOMEN: Soft. Hypoactive bowel sounds. EXTREMITIES: Mani wrapping in place. PA pressure 30/23. IMPRESSION: 1. Status post coronary artery bypass grafting. 2. History of hypertension. 3. Hyperlipidemia. RECOMMENDATION: Will continue on the present medical regimen and hopefully he will be extubated soon and subsequently reinitiated on his statin and his beta eric. Thank you for this consult. We will follow with you.
[2016-12-24] MEDS: ALBUMIN HUMAN 5% 250 ML in EMPTY BAG 1 BAG IVPB PRN ×2 (19:30→19:53)
[2016-12-24] MEDS: INSULIN REGULAR 100 UNIT in SODIUM CHLORIDE 0.9% 100 ML IV SCH (19:32)
[2016-12-24 20:07] LABS: Glucose,Whole Blood 154 mg/dL (75-99)
[2016-12-24] MEDS: ceFAZolin 2 GM in SODIUM CHLORIDE 0.9% 100 ML IVPB SCH (20:13)
[2016-12-24] MEDS: MUPIROCIN 2% OINT 22 GM TUBE NASAL SCH (20:13)
[2016-12-24 20:36] LABS: ABG Base Excess -5.3 mmol/L; ABG HCO3 19 mmol/L (21-25); ABG PCO2 33 mmHg (35-45); ABG PH 7.38 (7.35-7.45); ABG PO2 65 mmHg (83-108); ABG TCO2 20 mmol/L (19-24)
[2016-12-24 21:14] LABS: Glucose,Whole Blood 162 mg/dL (75-99)
[2016-12-24 21:56] LABS: Glucose,Whole Blood 177 mg/dL (75-99)
[2016-12-24 22:55] LABS: Glucose,Whole Blood 173 mg/dL (75-99)
[2016-12-25 00:12] LABS: Glucose,Whole Blood 153 mg/dL (75-99)
[2016-12-25] MEDS: HEPARIN SODIUM,PORCINE 5,000 UNIT/ML 1 ML VIAL SQ SCH ×3 (00:31→19:05)
[2016-12-25] MEDS: CLEVIDIPINE BUTYRATE 25 MG in EMPTY BAG 1 BAG IV SCH ×5 (01:20→13:50)
[2016-12-25 01:31] LABS: Glucose,Whole Blood 126 mg/dL (75-99)
[2016-12-25 03:05] LABS: Glucose,Whole Blood 111 mg/dL (75-99)
[2016-12-25 04:17] LABS: Glucose,Whole Blood 115 mg/dL (75-99)
[2016-12-25] MEDS: ceFAZolin 2 GM in SODIUM CHLORIDE 0.9% 100 ML IVPB SCH ×2 (04:19→12:56)
[2016-12-25 04:34] LABS: Basophils # (A) 0.1 k/uL (0-0.2); Basophils % (A) 1 %; CH 31.4; CHCM 35.9; Eosinophils % (A) 0 %; HGB 13.6 gm/dL (13.0-17.5); Luc % (Auto) 2; Lymphocytes % (A) 8 %; MCH 30.6 pg (25.0-35.0); MCHC 34.8 g/dL (31.0-37.0); MCV 87.7 fL (80.0-100.0); Mean Platelet Volume 8.7; Monocytes # (A) 0.9 k/uL (0-1.0); Monocytes % (A) 7 %; Neutrophils # (A) 10.3 k/uL (1.3-7.7); Neutrophils % (A) 82 %; RBC 4.44 m/uL (4.30-5.90); RDW 12.7 % (11.5-15.5); WBC 12.5 k/uL (3.8-10.6); WBC (Perox) 12.85
[2016-12-25 04:53] LABS: Ionized Calcium 4.8 mg/dL (4.5-5.3)
[2016-12-25 05:01] LABS: ALT 32 U/L (21-72); AST 27 U/L (17-59); Alkaline Phosphatase 29 U/L (38-126); Anion Gap 9 mmol/L; Blood Urea Nitrogen 18 mg/dL (9-20); Calcium 8.4 mg/dL (8.4-10.2); Carbon Dioxide 22 mmol/L (22-30); Chloride 104 mmol/L (98-107); Glucose 114 mg/dL (74-99); Magnesium 2.1 mg/dL (1.6-2.3); Non-African American GFR(MDRD) >60 (>60 ml/min/1.73 sqM); Potassium 4.3 mmol/L (3.5-5.1); Sodium 135 mmol/L (137-145); Total Bilirubin 0.7 mg/dL (0.2-1.3); Total Protein 5.5 g/dL (6.3-8.2)
[2016-12-25] MEDS: ACETAMINOPHEN IV (For NPO) 1,000 MG in EMPTY BAG 1 BAG IVPB SCH ×3 (05:27→19:06)
[2016-12-25 06:08] LABS: Glucose,Whole Blood 149 mg/dL (75-99)
[2016-12-25] MEDS: ALBUMIN HUMAN 5% 250 ML in EMPTY BAG 1 BAG IVPB PRN (06:22)
[2016-12-25 07:15] LABS: Glucose,Whole Blood 127 mg/dL (75-99)
--- NOTE | 2016-12-25 07:25 | XR ---
EXAMINATION TYPE: XR chest 1V portable DATE OF EXAM: 12/25/2016 6:32 AM Comparison: 12/24/2016 Clinical History: 76 year-old male post Operative Cardiac Surgery Findings: Heart is mildly enlarged. Interval extubation with low lung volumes and crowded pulmonary vasculature . There is increasing left basilar opacity. Median sternotomy wires are present with post-CABG clips in the mediastinum. Right IJ [place]-Stephan catheter has its tip probably in the upper interlobar pulmonar y artery. Mediastinal drain is present as well as a left-sided chest tube. No appreciable pneumothora x. Impression: Interval extubation with decreasing lung volumes from prior and increasing patchy left basilar/retroc ardiac opacity, probably atelectasis.
[2016-12-25] MEDS: IPRATROPIUM-ALBUTEROL 3 ML NEB INHALATION SCH ×4 (07:57→19:40)
[2016-12-25 08:13] LABS: Glucose,Whole Blood 115 mg/dL (75-99)
[2016-12-25] MEDS: PANTOPRAZOLE 40 MG/10 ML VIAL IVP SCH (08:43)
[2016-12-25] MEDS: MUPIROCIN 2% OINT 22 GM TUBE NASAL SCH ×2 (08:43→20:49)
[2016-12-25] MEDS: ATORVASTATIN 40 MG TAB PO SCH (08:43)
[2016-12-25] MEDS: ASPIRIN 325 MG TAB PO SCH (08:43)
[2016-12-25] MEDS: CLOPIDOGREL 75 MG TAB PO SCH (08:43)
[2016-12-25] MEDS ORDERED: METOPROLOL TARTRATE 12.5 MG TAB PO SCH (09:00)
--- NOTE | 2016-12-25 09:48 | PN ---
Mr. Falcon is a 76-year-old male who was found to have significant obstructive coronary artery disease by Dr. Rizvi, underwent coronary artery bypass grafting yesterday. He is extubated, sitting up in the chair, feeling reasonably well, denying any chest pain. No dizziness. No palpitation. Except soreness in the chest was deep inspiration. He has been extubated last night. He continues to be on aspirin once a day, Lipitor 40 mg daily, Plavix 75 mg daily, metoprolol tartrate 12.5 mg twice a day. PHYSICAL EXAMINATION: Blood pressure 136/50 with the heart in the 70s. LUNGS: With mild decreased in breath sounds at bases. HEART: Regular rate rhythm. S1, S2, no S3, no rub. ABDOMEN: Soft, nontender. Positive bowel sounds. EXTREMITIES: No significant edema. Lab data revealed a BUN and creatinine of 18 and 0.8. Potassium 4.3. Hemoglobin is 13.6. IMPRESSION: 1. Status post coronary artery bypass grafting, stable. 2. Hyperlipidemia. 3. History of hypertension. RECOMMENDATION: Will continue present therapy. Continue incentive spirometry with respiratory toilet. To increase his level of activity. I expect his [place]-Stepahn catheter will be removed today and his activity will be increased.
[2016-12-25 09:57] LABS: Glucose,Whole Blood 125 mg/dL (75-99)
[2016-12-25 09:57] LABS: Glucose,Whole Blood 116 mg/dL (75-99)
--- NOTE | 2016-12-25 10:21 | P.PN ---
Progress Note - Text CV Surgery Nursing POD: #1, off-pump coronary artery bypass grafts 3 utilizing a left internal mammary artery to left anterior descending artery and reverse saphenous vein grafts sequentialled to the first and second diagonal branch. Endoscopic harvesting of the right greater saphenous vein. Intraoperative transesophageal echocardiogram and epi-aortic ultrasonography. Patient awake and alert, no distress noted, no specific complaints. Vital Signs: Afebrile Vital Signs - 24 hr 12/24/16 12/24/16 12/24/16 14:51 15:00 15:10 Pulse Rate 52 L 51 L 50 L Pulse Rate [ Left Supine] Pulse Rate [ Right Supine [employer] ] Respiratory 12 12 Rate Blood Pressure O2 Sat by Pulse 100 100 100 Oximetry 12/24/16 12/24/16 12/24/16 15:20 15:30 15:40 Pulse Rate 50 L 56 L 55 L Pulse Rate [ Left Supine] Pulse Rate [ Right Supine [employer] Supervisor ] Respiratory 12 Rate Blood Pressure 108/60 108/60 O2 Sat by Pulse 100 100 100 Oximetry 12/24/16 12/24/16 12/24/16 15:50 16:00 16:10 Pulse Rate 55 L 58 L 57 L Pulse Rate [ Left Supine] Pulse Rate [ Right Supine [employer] Supervisor ] Respiratory Rate Blood Pressure 108/60 108/60 108/60 O2 Sat by Pulse 100 98 97 Oximetry 12/24/16 12/24/16 12/24/16 16:20 16:30 16:40 Pulse Rate 57 L 58 L 58 L Pulse Rate [ Left Supine] Pulse Rate [ Right Supine [employer] Supervisor ] Respiratory 12 Rate Blood Pressure 108/60 108/60 108/60 O2 Sat by Pulse 98 97 97 Oximetry 12/24/16 12/24/16 12/24/16 16:50 17:00 17:10 Pulse Rate 59 L 59 L 60 Pulse Rate [ Left Supine] Pulse Rate [ Right Supine [employer] Supervisor ] Respiratory 12 12 12 Rate Blood Pressure 108/60 108/60 108/60 O2 Sat by Pulse 97 96 97 Oximetry 12/24/16 12/24/16 12/24/16 17:30 18:00 18:30 Pulse Rate 62 62 63 Pulse Rate [ Left Supine] Pulse Rate [ Right Supine [employer] Supervisor ] Respiratory 12 12 12 Rate Blood Pressure 108/60 105/58 105/58 O2 Sat by Pulse 97 96 97 Oximetry 12/24/16 12/24/16 12/24/16 19:00 19:30 19:35 Pulse Rate 64 68 68 Pulse Rate [ Left Supine] Pulse Rate [ Right Supine [employer] Supervisor ] Respiratory 12 14 Rate Blood Pressure 105/58 105/58 O2 Sat by Pulse 96 97 Oximetry 12/24/16 12/24/16 12/24/16 19:47 20:00 20:30 Pulse Rate 68 69 74 Pulse Rate [ Left Supine] Pulse Rate [ Right Supine [employer] Supervisor ] Respiratory 14 12 Rate Blood Pressure 118/65 118/65 O2 Sat by Pulse 95 94 L Oximetry 12/24/16 12/24/16 12/24/16 21:00 21:30 22:00 Pulse Rate 71 74 77 Pulse Rate [ Left Supine] Pulse Rate [ Right Supine [employer] Supervisor ] Respiratory 12 12 12 Rate Blood Pressure 118/65 117/59 117/59 O2 Sat by Pulse 94 L 94 L 92 L Oximetry 12/24/16 12/24/16 12/25/16 22:04 23:00 00:00 Pulse Rate 80 76 78 Pulse Rate [ 56 L Left Supine] Pulse Rate [ 58 L Right Supine [employer] Supervisor ] Respiratory 15 Rate Blood Pressure 117/59 113/56 100/54 O2 Sat by Pulse 92 L 96 94 L Oximetry 12/25/16 12/25/16 12/25/16 01:00 02:00 03:00 Pulse Rate 75 73 74 Pulse Rate [ Left Supine] Pulse Rate [ Right Supine [employer] Supervisor ] Respiratory 19 13 18 Rate Blood Pressure 111/60 112/58 105/60 O2 Sat by Pulse 95 95 92 L Oximetry 12/25/16 12/25/16 12/25/16 04:00 05:00 06:00 Pulse Rate 72 77 75 Pulse Rate [ 56 L Left Supine] Pulse Rate [ 58 L Right Supine [employer] Supervisor ] Respiratory 17 18 17 Rate Blood Pressure 119/66 120/64 108/55 O2 Sat by Pulse 92 L 91 L 94 L Oximetry 12/25/16 12/25/16 12/25/16 07:00 08:00 08:20 Pulse Rate 71 70 70 Pulse Rate [ 56 L Left Supine] Pulse Rate [ 58 L Right Supine [employer] Supervisor ] Respiratory 16 20 Rate Blood Pressure 99/53 104/56 O2 Sat by Pulse 98 95 Oximetry 12/25/16 09:00 Pulse Rate 74 Pulse Rate [ Left Supine] Pulse Rate [ Right Supine [employer] C[employer] Supervisor ] Respiratory 20 Rate Blood Pressure 111/59 O2 Sat by Pulse 92 L Oximetry ABP, PAP, CO, CI - Last 8 Hours Arterial Blood Pressure 124/50 Arterial Blood Pressure 133/49 Arterial Blood Pressure 136/47 Arterial Blood Pressure 133/28 Arterial Blood Pressure 141/58 Arterial Blood Pressure 144/53 Arterial Blood Pressure 134/52 Pulmonary Artery Pressure 30/12 Pulmonary Artery Pressure 22/8 Pulmonary Artery Pressure 21/9 Pulmonary Artery Pressure 27/7 Pulmonary Artery Pressure 39/25 Pulmonary Artery Pressure 39/24 Pulmonary Artery Pressure 31/22 Cardiac Output 5.1 Cardiac Output 4.8 Cardiac Output 4.8 Cardiac Output 4.8 Cardiac Output 6.9 Cardiac Index 2.5 Cardiac Index 2.4 Labs: Short CBC 12/24/16 12/24/16 12/25/16 Range/Units 15:11 18:00 04:20 WBC 8.9 12.6 H 12.5 H (3.8-10.6) k/uL Hgb 13.5 14.9 13.6 (13.0-17.5) gm/dL Hct 39.0 44.3 39.0 (39.0-53.0) % Plt Count 134 L 169 137 L (150-450) k/uL Neutrophils # 7.2 10.7 H 10.3 H (1.3-7.7) k/uL BMP 12/24/16 12/24/16 12/25/16 15:11 18:00 04:20 Sodium 136 L 134 L 135 L Potassium 4.2 4.2 4.3 Chloride 107 105 104 Carbon Dioxide 22 21 L 22 BUN 12 14 18 Creatinine 0.65 L 0.70 0.80 Glucose 105 H 179 H 114 H Calcium 8.1 L 8.1 L 8.4 Liver Function 12/24/16 12/25/16 Range/Units 15:11 04:20 Total Bilirubin 0.9 0.7 (0.2-1.3) mg/dL AST 29 27 (17-59) U/L ALT 29 32 (21-72) U/L Alkaline Phosphatase 40 29 L (38-126) U/L Albumin 2.6 L 3.4 L (3.5-5.0) g/dL Cardiac output: 5.1 L/m Cardiac index: 2.5 L/m Pulmonary artery pressures: 30/12 CVP: 21 mm of mercury Lungs: Respirations are even and nonlabored, breath sounds are diminished bilateral bases O2 sat: 92% on 13 L of high flow oxygen delivered via nasal cannula I/S: 500 mL, patient gave return demonstration of proper use the device Heart: S1S2, regular rate and rhythm, bedside telemetry shows a normal sinus rhythm without ectopy Sternum stable, chest incision clean with silverlon dressing clean and dry. Abdomen: Soft, Positive bowel sounds present in all 4 quadrants. CBGs: 115 to 149 mg/dL U/O: Adequate Chest Tubes: No visible air leak, 400 mL of serosanguineous drainage over the last 8 hours. Intake & Output 12/23/16 12/24/16 12/25/16 12/26/16 06:59 06:59 06:59 06:59 Intake Total 2003.450 334.156 Output Total 3688 201 Balance -1684.550 133.156 Weight 88.9 kg Active Medications Acetaminophen/Hydrocodone Bitart ([place] 5-325) 2 each PO Q4HR PRN PRN Reason: Severe Pain Acetaminophen/Hydrocodone Bitart ([place] 5-325) 1 each PO Q4HR PRN PRN Reason: Moderate Pain Albuterol/Ipratropium (Duoneb 0.5 Mg-3 Mg/3 Ml Soln) 3 ml INHALATION RT-Q2H PRN PRN Reason: Shortness Of Breath Or Wheezing Albuterol/Ipratropium (Duoneb 0.5 Mg-3 Mg/3 Ml Soln) 3 ml INHALATION RT-QID [facility] Last Admin: 12/25/16 07:57 Dose: 3 ml Aspirin (Aspirin) 325 mg PO DAILY [facility] Last Admin: 12/25/16 08:43 Dose: 325 mg Atorvastatin Calcium (Lipitor) 40 mg PO DAILY [facility] Last Admin: 12/25/16 08:43 Dose: 40 mg Benzocaine/Menthol (Cepacol Lozenge) 1 each MUCOUS MEM Q2H PRN PRN Reason: Sore Throat Bisacodyl (Dulcolax) 10 mg RECTAL DAILY PRN PRN Reason: Constipation Clopidogrel Bisulfate (Plavix) 75 mg PO DAILY [facility] Last Admin: 12/25/16 08:43 Dose: 75 mg Heparin Sodium (Porcine) (Heparin) 5,000 unit SQ Q8HR [facility] Last Admin: 12/25/16 08:42 Dose: 5,000 unit Acetaminophen 1,000 mg/ IV (Solution) 100 mls @ 400 mls/hr IVPB Q6HR [facility] Stop: 12/25/16 18:01 Last Admin: 12/25/16 05:27 Dose: 400 mls/hr Albumin Human 250 ml/ IV (Solution) 250 mls @ 250 mls/hr IVPB Q1HR PRN PRN Reason: For Volume Stop: 12/26/16 14:28 Last Admin: 12/25/16 06:22 Dose: 250 mls/hr Clevidipine 25 mg/ IV Solution 50 mls @ 2 mls/hr IV .Q24H EDGARDO; 1 MG/HR PRN Reason: Protocol Last Titration: 12/25/16 09:44 Dose: 6 mg/hr, 12 mls/hr Insulin Human Regular 100 unit (/ Sodium Chloride) 101 mls @ 0 mls/hr IV .Q0M EDGARDO; Per Protocol PRN Reason: Protocol Last Titration: 12/25/16 08:20 Dose: 0 units/h, 0 mls/hr Lactated Ringer's (Lactated Ringers) 1,000 mls @ 50 mls/hr IV .Q20H [facility] Last Admin: 12/24/16 16:14 Dose: Not Given Nitroglycerin/Dextrose 50 mg/ (IV Solution) 250 mls @ 1.5 mls/hr IV .Q24H [facility] PRN Reason: 5 MCG/MIN Last Infusion: 12/25/16 05:50 Dose: 0 mcg/min, 0 mls/hr Propofol 500 mg/ IV Solution 50 mls @ 0 mls/hr IV .Q0M EDGARDO; Titrate PRN Reason: Protocol Last Admin: 12/24/16 20:10 Dose: 5 mcg/kg/min, 2.52 mls/hr Cefazolin Sodium 2 gm/ Sodium (Chloride) 100 mls @ 100 mls/hr IVPB Q8H [facility] Stop: 12/25/16 13:59 Last Admin: 12/25/16 04:19 Dose: 100 mls/hr Magnesium Hydroxide (Milk Of Magnesia) 2,400 mg PO BID PRN PRN Reason: Constipation Metoclopramide HCl (Reglan) 10 mg IVP Q4H PRN PRN Reason: Nausea And Vomiting Metoprolol Tartrate (Lopressor) 12.5 mg PO BID [facility] Last Admin: 12/25/16 08:43 Dose: 12.5 mg Miscellaneous Information (Magnesium Per Protocol) 1 each MISCELLANE DAILY PRN ; Protocol PRN Reason: Per Protocol Miscellaneous Information (Phosphorus Per Protocol) 1 each MISCELLANE DAILY PRN ; Protocol PRN Reason: Per Protocol Miscellaneous Information (Potassium Per Protocol) 1 each MISCELLANE DAILY PRN ; Protocol PRN Reason: Per Protocol Miscellaneous Information (Magnesium Per Protocol) 1 each MISCELLANE DAILY PRN ; Protocol PRN Reason: Per Protocol Morphine Sulfate (Morphine Sulfate (Inj)) 2 mg IVP Q2H PRN PRN Reason: Severe Pain Last Admin: 12/24/16 21:31 Dose: 2 mg Mupirocin (Bactroban Oint) 1 applic NASAL BID [facility] Stop: 12/27/16 21:01 Last Admin: 12/25/16 08:43 Dose: 1 applic Ondansetron HCl (Zofran) 4 mg IVP Q6HR PRN PRN Reason: Nausea And Vomiting Oxycodone HCl (Oxyir) 10 mg PO Q4H PRN PRN Reason: Severe Pain Stop: 12/25/16 14:28 Last Admin: 12/25/16 08:36 Dose: 10 mg Oxycodone HCl (Oxyir) 5 mg PO Q4H PRN PRN Reason: Moderate Pain Stop: 12/25/16 14:28 Pantoprazole Sodium (Protonix) 40 mg IVP DAILY [facility] Last Admin: 12/25/16 08:43 Dose: 40 mg Senna/Docusate Sodium (Senokot-S) [address] [facility] Sodium Chloride (Saline Flush) 10 ml IV BID [facility] Last Admin: 12/25/16 08:44 Dose: Not Given Plan: Status post off-pump CABG 3 day #1 Good progress Continue aggressive pulmonary toilet utilizing incentive spirometry, coughing and deep breathing, and inhalation treatments per respiratory therapy department. Continue to increase activity as tolerated.
[2016-12-25 11:10] LABS: Glucose,Whole Blood 114 mg/dL (75-99)
[2016-12-25] MEDS: METOPROLOL TARTRATE 12.5 MG TAB PO ONE (11:22)
[2016-12-25] MEDS ORDERED: FUROSEMIDE 10 MG/ML 4 ML VIAL IV STA (11:23)
[2016-12-25 12:12] LABS: Glucose,Whole Blood 130 mg/dL (75-99)
[2016-12-25 13:05] LABS: Glucose,Whole Blood 139 mg/dL (75-99)
[2016-12-25] MEDS ORDERED: HYDROcodone/APAP 5-325MG 1 EACH TAB PO PRN (14:29)
[2016-12-25] MEDS ORDERED: MAGNESIUM HYDROXIDE 2,400 MG/10 ML CUP PO PRN (14:30)
[2016-12-25] MEDS ORDERED: BISACODYL 10 MG SUPP RECTAL PRN (14:30)
[2016-12-25] MEDS ORDERED: IPRATROPIUM-ALBUTEROL 3 ML NEB INHALATION PRN (14:31)
[2016-12-25] MEDS: LISINOPRIL 10 MG TAB PO SCH (14:47)
[2016-12-25] MEDS: MORPHINE SULFATE 2 MG/ML SYRINGE IVP PRN ×3 (14:53→20:52)
[2016-12-25 14:55] LABS: Glucose,Whole Blood 130 mg/dL (75-99)
[2016-12-25 16:06] LABS: Glucose,Whole Blood 139 mg/dL (75-99)
--- NOTE | 2016-12-25 17:02 | CONS ---
DATE OF CONSULTATION: REASON FOR CONSULTATION: Post CABG coronary artery disease and hypertension. Patient is a 76-year-old gentleman admitted ( ) CABG for multivessel disease and patient is clinically doing well and was extubated. Patient denied any fever or chills. Patient did not pass gas yet. Patient is complaining of pain in the chest tube area. Patient's chest x-ray showed good expansion. The patient has a chest tube which is still draining. Chest tube drain is around ( ) mL over the last 24 hours. Patient denied any fever or chills. The patient denied any cough or runny nose. Patient denied any abdominal pain. Patient is complaining of chest pain as mentioned earlier. REVIEW OF SYSTEMS: CARDIOVASCULAR: As described in HPI. PULMONARY: Denied any shortness of breath. No cough or hemoptysis. GASTROINTESTINAL: No diarrhea, nausea or vomiting. No abdominal pain. Normoactive bowel sounds. NEUROLOGIC: No headaches, no weakness, no numbness. All other systems were reviewed and were negative. Past medical history significant for CVA, TIA, hyperlipidemia, hypertension, myocardial infarction in the past. Patient had a CABG yesterday. SOCIAL HISTORY: Former smoker. Quit smoking in 1999. Denied any alcohol abuse or drug abuse. FAMILY HISTORY: The patient does not know any of his family history., Medications include: 1. Atenolol. 2. Plavix. 3. Isosorbide mononitrate. 4. Nitroglycerin. 5. Vitamin E. 6. Norvasc. 7. Aspirin. 8. Atorvastatin. ALLERGIES: No known drug allergies. PHYSICAL EXAMINATION: Temperature 98.2, pulse of 81, respiratory rate of 24. Blood pressure is 111/71, saturating at 93% on 4 liters of O2 by nasal cannula. GENERAL: The patient is alert and oriented x3, not in any acute distress. Well developed, well nourished. HEENT: Pupils are round and equally reacting to light. EOMI. No scleral icterus. No conjunctival pallor. Normocephalic, atraumatic. No pharyngeal erythema. No thyromegaly. CARDIOVASCULAR: S1 and S2 present. No murmurs, rubs, or gallops. PULMONARY: Patient has binder to the chest and has a chest tube in place and drainage as mentioned above. ABDOMEN: Soft, nontender, nondistended, normoactive bowel sounds. No palpable organomegaly. MUSCULOSKELETAL: No joint swelling or deformity. EXTREMITIES: No cyanosis, clubbing, or pedal edema. NEUROLOGICAL: Gross neurological examination did not reveal any focal deficits. SKIN: No rashes. LABORATORY DATA: CBC, CMP are abnormal for elevated WBC count, is a reactive response without any signs or symptoms of infection. ASSESSMENT: 1. Coronary artery disease, status post coronary artery bypass grafting further management as per primary service. Continue with beta eric. Continue with antiplatelet therapy. 2. Hypertension. The patient's blood pressure is well controlled at this point of time. Recommend to control the same medications. 3. Hyperlipidemia. 4. History of cerebrovascular accident. 5. For those above-mentioned medical problems, patient can be continued on home medications patient was additionally started on 10 mg of Lisinopril. 6. Leukocytosis without any signs or symptoms of infection secondary to reactive response from surgery. Patient is on perioperative antibiotics, beyond that, I do not believe patient will need any additional antibiotics. Thank you for letting me participate in this patient's care. Will continue to follow the patient on an as-needed basis. KULDIP
[2016-12-25 17:43] LABS: Glucose,Whole Blood 146 mg/dL (75-99)
[2016-12-25] MEDS: LACTATED RINGERS 1,000 ML IV SCH (19:04)
[2016-12-25] MEDS: NITROGLYCERIN-D5W PMX 50 MG in DEXTROSE/WATER 1 250ML.BAG IV SCH (19:04)
--- NOTE | 2016-12-25 19:07 | P.PN ---
Subjective 76-year-old male patient underwent three-vessel bypass surgery and the patient was brought into the intensive care unit and a critically care management consultation was placed. The patient is currently sedated with Diprivan at 50 mics. His intubated on a mechanical ventilator at a rate of 12, tidal volume 550, FiO2 initiate 100% currently is down to 50% and a PEEP of 5. Post surgical chest x-ray shows adequate expansion of both lungs, ET tube is in a good location, there is a mediastinal and the left pleural chest tube, [place]- Stephan catheter in place and NG tube is in place. Hemodynamically, the patient has a PA pressure of 35/20 with a cardiac index of 2.3. The patient is on a clevidipine drip at the rate of 6 mg an hour and the patient is also on nitroglycerin at 25 mcg/m. He is producing adequate amount of urine output. Output from the chest tube is minimal and the total amount of output from the chest tube since his arrival is 100. He is sedated with Diprivan at 50 mics. His an alcoholic. He drinks alcohol on a daily basis and drinks shock. The patient is also on an insulin drip for blood sugar control. No other significant events postop. He is a ex-smoker. No reported history of COPD. On the patient is being seen in follow-up. The patient was seen immediately postoperative and following that the patient was gradually weaned off the mechanical ventilator and he was extubated blood any major difficulties. This morning, the patient is on 4 L of oxygen by nasal cannula and his FiO2 is being gradually weaned off. He is postop day #1. His chest x- ray shows postsurgical changes with atelectatic changes in lung bases and small effusions. Chest tubes are in good location. Output from the chest tubes had been around 10-15 mL on an hourly basis. Hemodynamically, the patient is hypertensive and he is still on a clevidipine drip for blood pressure control and currently is on 6 mg an hour. He is producing adequate amount of urine output. He is using incentive spirometer. Is awake and alert and following commands and answering questions appropriately. [place]-Stephan catheter in place and this will be hopefully taken off after consulting with cardiothoracic surgery. He is doing aggressive pulmonary toileting. He has a hemoglobin of 13.6. Renal function is stable. No other significant events over the past 24 hours. Objective - Vital Signs Vital signs: Vital Signs Temp 98.2 F 12/25/16 12:00 Pulse 76 12/25/16 19:00 Resp 29 H 12/25/16 19:00 BP 116/71 12/25/16 14:00 Pulse Ox 98 12/25/16 19:00 Intake & Output 12/25/16 12/25/16 12/26/16 06:59 18:59 06:59 Intake Total 1363.417 921.796 Output Total 924 1141 Balance 439.417 -219.204 Weight 88.9 kg 88.9 kg Intake: IV 770 789 0.9 flush 90 69 ACETAMINOPHEN IV (For NPO 100 200 ) 1,000 mg In Empty Bag 1 bag @ 400 mls/hr IVPB Q6HR [facility] Rx#:[id number] Lactated Ringers 1,000 ml 350 400 @ 50 mls/hr IV .Q20H [facility] Rx#:[id number] cardiac output 130 20 ceFAZolin 2 gm In Sodium 100 100 Chloride 0.9% 100 ml @ 100 mls/hr IVPB Q8H [facility] Rx#:[id number] Intake, IV Titration 593.417 82.796 Amount Clevidipine Butyrate 25 200.967 69.600 mg In Empty Bag 1 bag @ 1 MG/HR 2 mls/hr IV .Q24H [facility] Rx#:[id number] Insulin Regular 100 unit 45.775 13.196 In Sodium Chloride 0.9% 100 ml @ Per Protocol IV .Q0M [facility] Rx#:[id number] Lactated Ringers 1,000 ml 220 @ 50 mls/hr IV .Q20H [facility] Rx#:[id number] Nitroglycerin-D5w Pmx 50 76.675 mg In Dextrose/Water 1 250ml.bag @ 5 MCG/MIN 1.5 mls/hr IV .Q24H [facility] Rx#: [id number] Propofol 500 mg In Empty 50 Bag 1 bag @ Titrate IV . Q0M [facility] Rx#:[id number] Oral 50 Output: Chest Tube Drainage 586 180 Left Pleural/Mediastinal 586 180 Urine 338 961 Other: Voiding Method Indwelling Catheter Indwelling Catheter ABP, PAP, CO, CI - Last Documented Arterial Blood Pressure 127/50 Pulmonary Artery Pressure 27/12 Cardiac Output 5.1 Cardiac Index 2.5 - Exam Head exam was generally normal. There was no scleral icterus or corneal arcus. Mucous membranes were moist.Neck was supple and without jugular venous distension, thyromegaly, or carotid bruits. Carotids were easily palpable bilaterally. There was no adenopathy. The patient has a Cordis in the right IJ. Lungs sounds are diminished bilaterally and the patient has a mediastinal and the left pleural chest tube. Sternum stable clean and intact.Cardiac exam revealed the PMI to be normally situated and sized. The rhythm was regular and no extrasystoles were noted during several minutes of auscultation. The first and second heart sounds were normal and physiologic splitting of the second heart sound was noted. There were no murmurs, rubs, clicks, or gallops.Abdominal exam revealed normal bowel sounds. The abdomen was soft, non- tender, and without masses, organomegaly, or appreciable enlargement of the abdominal aorta.Examination of the extremities revealed easily palpable radial, femoral and pedal pulses. There was no cyanosis, clubbing or edema. Surgical wound site and lower extremity are all dry clean and intact. - Labs CBC & Chem 7: 12/25/16 04:20 12/25/16 04:20 Labs: Abnormal Lab Results - Last 24 Hours (Table) 12/16/16 12/24/16 12/24/16 Range/Units 11:25 18:00 19:03 WBC (3.8-10.6) k/uL Plt Count (150-450) k/uL Neutrophils # (1.3-7.7) k/uL APTT 20.0 L (22.0-30.0) sec ABG pCO2 (35-45) mmHg ABG pO2 (83-108) mmHg ABG HCO3 (21-25) mmol/L ABG O2 Saturation (94-97) % Sodium (137-145) mmol/L Glucose (74-99) mg/dL POC Glucose (mg/dL) 173 H (75-99) mg/dL Alkaline Phosphatase (38-126) U/L Total Protein (6.3-8.2) g/dL Albumin (3.5-5.0) g/dL Crossmatch See Detail 12/24/16 12/24/16 12/24/16 Range/Units 20:05 20:26 21:12 WBC (3.8-10.6) k/uL Plt Count (150-450) k/uL Neutrophils # (1.3-7.7) k/uL APTT (22.0-30.0) sec ABG pCO2 33 L (35-45) mmHg ABG pO2 65 L (83-108) mmHg ABG HCO3 19 L (21-25) mmol/L ABG O2 Saturation 92.0 L (94-97) % Sodium (137-145) mmol/L Glucose (74-99) mg/dL POC Glucose (mg/dL) 154 H 162 H (75-99) mg/dL Alkaline Phosphatase (38-126) U/L Total Protein (6.3-8.2) g/dL Albumin (3.5-5.0) g/dL Crossmatch 12/24/16 12/24/16 12/25/16 Range/Units 21:53 22:52 00:10 WBC (3.8-10.6) k/uL Plt Count (150-450) k/uL Neutrophils # (1.3-7.7) k/uL APTT (22.0-30.0) sec ABG pCO2 (35-45) mmHg ABG pO2 (83-108) mmHg ABG HCO3 (21-25) mmol/L ABG O2 Saturation (94-97) % Sodium (137-145) mmol/L Glucose (74-99) mg/dL POC Glucose (mg/dL) 177 H 173 H 153 H (75-99) mg/dL Alkaline Phosphatase (38-126) U/L Total Protein (6.3-8.2) g/dL Albumin (3.5-5.0) g/dL Crossmatch 12/25/16 12/25/16 12/25/16 Range/Units 01:28 03:04 04:13 WBC (3.8-10.6) k/uL Plt Count (150-450) k/uL Neutrophils # (1.3-7.7) k/uL APTT (22.0-30.0) sec ABG pCO2 (35-45) mmHg ABG pO2 (83-108) mmHg ABG HCO3 (21-25) mmol/L ABG O2 Saturation (94-97) % Sodium (137-145) mmol/L Glucose (74-99) mg/dL POC Glucose (mg/dL) 126 H 111 H 115 H (75-99) mg/dL Alkaline Phosphatase (38-126) U/L Total Protein (6.3-8.2) g/dL Albumin (3.5-5.0) g/dL Crossmatch 12/25/16 12/25/16 12/25/16 Range/Units 04:20 04:20 06:05 WBC 12.5 H (3.8-10.6) k/uL Plt Count 137 L (150-450) k/uL Neutrophils # 10.3 H (1.3-7.7) k/uL APTT (22.0-30.0) sec ABG pCO2 (35-45) mmHg ABG pO2 (83-108) mmHg ABG HCO3 (21-25) mmol/L ABG O2 Saturation (94-97) % Sodium 135 L (137-145) mmol/L Glucose 114 H (74-99) mg/dL POC Glucose (mg/dL) 149 H (75-99) mg/dL Alkaline Phosphatase 29 L (38-126) U/L Total Protein 5.5 L (6.3-8.2) g/dL Albumin 3.4 L (3.5-5.0) g/dL Crossmatch 12/25/16 12/25/16 12/25/16 Range/Units 07:12 08:10 09:41 WBC (3.8-10.6) k/uL Plt Count (150-450) k/uL Neutrophils # (1.3-7.7) k/uL APTT (22.0-30.0) sec ABG pCO2 (35-45) mmHg ABG pO2 (83-108) mmHg ABG HCO3 (21-25) mmol/L ABG O2 Saturation (94-97) % Sodium (137-145) mmol/L Glucose (74-99) mg/dL POC Glucose (mg/dL) 127 H 115 H 116 H (75-99) mg/dL Alkaline Phosphatase (38-126) U/L Total Protein (6.3-8.2) g/dL Albumin (3.5-5.0) g/dL Crossmatch 12/25/16 12/25/16 12/25/16 Range/Units 09:43 11:06 12:11 WBC (3.8-10.6) k/uL Plt Count (150-450) k/uL Neutrophils # (1.3-7.7) k/uL APTT (22.0-30.0) sec ABG pCO2 (35-45) mmHg ABG pO2 (83-108) mmHg ABG HCO3 (21-25) mmol/L ABG O2 Saturation (94-97) % Sodium (137-145) mmol/L Glucose (74-99) mg/dL POC Glucose (mg/dL) 125 H 114 H 130 H (75-99) mg/dL Alkaline Phosphatase (38-126) U/L Total Protein (6.3-8.2) g/dL Albumin (3.5-5.0) g/dL Crossmatch 12/25/16 12/25/16 12/25/16 Range/Units 13:03 14:50 16:04 WBC (3.8-10.6) k/uL Plt Count (150-450) k/uL Neutrophils # (1.3-7.7) k/uL APTT (22.0-30.0) sec ABG pCO2 (35-45) mmHg ABG pO2 (83-108) mmHg ABG HCO3 (21-25) mmol/L ABG O2 Saturation (94-97) % Sodium (137-145) mmol/L Glucose (74-99) mg/dL POC Glucose (mg/dL) 139 H 130 H 139 H (75-99) mg/dL Alkaline Phosphatase (38-126) U/L Total Protein (6.3-8.2) g/dL Albumin (3.5-5.0) g/dL Crossmatch 12/25/16 Range/Units 17:40 WBC (3.8-10.6) k/uL Plt Count (150-450) k/uL Neutrophils # (1.3-7.7) k/uL APTT (22.0-30.0) sec ABG pCO2 (35-45) mmHg ABG pO2 (83-108) mmHg ABG HCO3 (21-25) mmol/L ABG O2 Saturation (94-97) % Sodium (137-145) mmol/L Glucose (74-99) mg/dL POC Glucose (mg/dL) 146 H (75-99) mg/dL Alkaline Phosphatase (38-126) U/L Total Protein (6.3-8.2) g/dL Albumin (3.5-5.0) g/dL Crossmatch Assessment and Plan Plan: Assessment 1 multivessel coronary artery disease and the patient is post three-vessel bypass surgery, postop day #1 2 post thoracotomy Status and the patient was extubated without any major difficulties. Currently on high flow oxygen which is being gradually weaned off. Chest tubes are all in place. No major respiratory difficulties. Today' s chest x-ray showing postsurgical changes. 3 stable hemodynamics 4 postoperative hypertension currently on clevidipine 5 alcoholism Plan Wean Down the FiO2 as tolerated to maintain a saturation above 92%. Incentive spirometer. Keep the chest tubes in place for another 24 hours. May remove the [place]-Stephan catheter if is okay by cardiothoracic surgery. Continue the rest of the supportive care and the patient will be kept in ICU. Ambulation. We'll follow.
[2016-12-25] MEDS: METOPROLOL TARTRATE 25 MG TAB PO SCH (20:49)
[2016-12-25] MEDS: SENNOSIDES-DOCUSATE SODIUM 1 EACH TAB PO SCH (20:52)
[2016-12-25 21:47] LABS: Glucose,Whole Blood 88 mg/dL (75-99)
[2016-12-26] MEDS: HYDROcodone/APAP 5-325MG 1 EACH TAB PO PRN ×4 (00:06→18:08)
[2016-12-26] MEDS: HEPARIN SODIUM,PORCINE 5,000 UNIT/ML 1 ML VIAL SQ SCH ×3 (00:10→16:31)
[2016-12-26] MEDS: MORPHINE SULFATE 2 MG/ML SYRINGE IVP PRN ×2 (00:14→02:45)
[2016-12-26 00:32] LABS: Glucose,Whole Blood 120 mg/dL (75-99)
[2016-12-26] MEDS: INSULIN REGULAR 100 UNIT in SODIUM CHLORIDE 0.9% 100 ML IV SCH (02:56)
[2016-12-26 02:57] LABS: Glucose,Whole Blood 91 mg/dL (75-99)
[2016-12-26] MEDS: LACTATED RINGERS 1,000 ML IV SCH (05:27)
[2016-12-26 06:19] LABS: Basophils % (A) 0 %; CH 31.5; CHCM 34.8; Eosinophils # (A) 0.1 k/uL (0-0.7); Eosinophils % (A) 1 %; HCT 34.9 % (39.0-53.0); HDW 2.61; Luc # (Auto) 0.24; Luc % (Auto) 3; Lymphocytes # (A) 1.2 k/uL (1.0-4.8); Lymphocytes % (A) 12 %; MCH 31.4 pg (25.0-35.0); MCHC 34.4 g/dL (31.0-37.0); MCV 91.1 fL (80.0-100.0); Mean Platelet Volume 8.8; Monocytes # (A) 0.6 k/uL (0-1.0); Monocytes % (A) 6 %; Neutrophils # (A) 7.7 k/uL (1.3-7.7); Neutrophils % (A) 78 %; RBC 3.83 m/uL (4.30-5.90); RDW 12.9 % (11.5-15.5); WBC 9.8 k/uL (3.8-10.6); WBC (Perox) 10.35
[2016-12-26 06:29] LABS: INR 1.1 (<1.1); Prothrombin Time 10.7 sec (9.0-12.0)
[2016-12-26 06:30] LABS: Ionized Calcium 5.1 mg/dL (4.5-5.3)
[2016-12-26 06:42] LABS: ALT 25 U/L (21-72); AST 37 U/L (17-59); Alkaline Phosphatase 37 U/L (38-126); Anion Gap 7 mmol/L; Blood Urea Nitrogen 25 mg/dL (9-20); Calcium 8.4 mg/dL (8.4-10.2); Carbon Dioxide 25 mmol/L (22-30); Chloride 104 mmol/L (98-107); Glucose 107 mg/dL (74-99); Magnesium 2.3 mg/dL (1.6-2.3); Non-African American GFR(MDRD) >60 (>60 ml/min/1.73 sqM); Potassium 4.4 mmol/L (3.5-5.1); Sodium 136 mmol/L (137-145); Total Bilirubin 1.4 mg/dL (0.2-1.3); Total Protein 5.4 g/dL (6.3-8.2)
--- NOTE | 2016-12-26 07:50 | XR ---
EXAMINATION TYPE: XR chest 1V portable DATE OF EXAM: 12/26/2016 6:41 AM Comparison: 12/25/2016 Clinical History: 76 year-old male post Operative Cardiac Surgery Findings: Median sternotomy wires are present with post-CABG changes. Mediastinal drain remains in place as wel l as a left-sided chest tube. Lung volumes remain low crowding the vascular markings. There is a band of atelectasis at the medial right base and persistent patchy left nasal or retrocardiac opacity. Co rrelation is recommended to exclude mild pulmonary vascular congestion. Right-sided [place]-Stephan cathete r removed with IJ sheath in place. No appreciable pneumothorax. Impression: 1. Removal of [place]-Stephan catheter. Mediastinal drain and left chest tube remain in place. No appreciab le pneumothorax. 2. Persistent low lung volumes with prominent hypoventilatory changes, left basilar and retrocardiac atelectasis, and possible mild pulmonary vascular congestion.
[2016-12-26] MEDS: CLOPIDOGREL 75 MG TAB PO SCH (08:28)
[2016-12-26] MEDS: PANTOPRAZOLE 40 MG/10 ML VIAL IVP SCH (08:28)
[2016-12-26] MEDS: LISINOPRIL 10 MG TAB PO SCH (08:28)
[2016-12-26] MEDS: METOPROLOL TARTRATE 25 MG TAB PO SCH ×2 (08:28→21:59)
[2016-12-26] MEDS: ASPIRIN 325 MG TAB PO SCH (08:28)
[2016-12-26] MEDS: ATORVASTATIN 40 MG TAB PO SCH (08:28)
[2016-12-26] MEDS: MUPIROCIN 2% OINT 22 GM TUBE NASAL SCH ×2 (08:28→21:59)
[2016-12-26 08:43] LABS: Glucose,Whole Blood 127 mg/dL (75-99)
[2016-12-26] MEDS: IPRATROPIUM-ALBUTEROL 3 ML NEB INHALATION SCH ×4 (09:09→21:03)
[2016-12-26] MEDS ORDERED: FUROSEMIDE 10 MG/ML 4 ML VIAL IV STA (10:20)
--- NOTE | 2016-12-26 11:44 | P.PN ---
Progress Note - Text CV Surgery Nursing POD: #2, off-pump coronary artery bypass grafts 3 utilizing the left internal mammary artery to left anterior descending artery and reverse greater saphenous vein graft sequential to the first and second diagonal branch. Endoscopic harvesting of the right greater saphenous vein. Intraoperative transesophageal echocardiogram and epi-aortic ultrasonography. Patient awake and alert, no distress noted, no specific complaints. Vital Signs: Afebrile, T-max 99.3F Vital Signs - 24 hr 12/25/16 12/25/16 12/25/16 12:00 13:00 13:07 Temperature 98.2 F Pulse Rate 81 81 79 Respiratory 25 H 30 H Rate Blood Pressure 111/63 O2 Sat by Pulse 97 Oximetry 12/25/16 12/25/16 12/25/16 13:20 14:00 15:00 Temperature Pulse Rate 77 92 81 Respiratory 25 H 24 Rate Blood Pressure 116/71 O2 Sat by Pulse 93 L 93 L Oximetry 12/25/16 12/25/16 12/25/16 16:00 16:20 16:40 Temperature Pulse Rate 71 78 78 Respiratory 19 Rate Blood Pressure O2 Sat by Pulse 95 Oximetry 12/25/16 12/25/16 12/25/16 17:00 18:00 19:00 Temperature Pulse Rate 71 85 76 Respiratory 18 23 29 H Rate Blood Pressure O2 Sat by Pulse 98 96 98 Oximetry 12/25/16 12/25/16 12/25/16 19:40 19:55 20:00 Temperature 97.3 F L Pulse Rate 71 72 71 Respiratory 19 Rate Blood Pressure O2 Sat by Pulse 100 Oximetry 12/25/16 12/25/16 12/25/16 21:00 21:50 22:00 Temperature Pulse Rate 71 71 71 Respiratory 20 18 16 Rate Blood Pressure 106/68 106/68 O2 Sat by Pulse 97 97 97 Oximetry 12/25/16 12/26/16 12/26/16 23:00 00:00 01:00 Temperature 98.8 F Pulse Rate 67 74 69 Respiratory 18 19 14 Rate Blood Pressure 91/59 91/55 85/54 O2 Sat by Pulse 98 96 97 Oximetry 12/26/16 12/26/16 12/26/16 02:00 03:00 04:00 Temperature 99.3 F Pulse Rate 70 80 76 Respiratory 15 27 H 23 Rate Blood Pressure 97/56 86/50 100/61 O2 Sat by Pulse 97 94 L 96 Oximetry 12/26/16 12/26/16 12/26/16 05:00 06:00 07:00 Temperature Pulse Rate 75 83 77 Respiratory 21 31 H 19 Rate Blood Pressure 100/57 109/64 95/58 O2 Sat by Pulse 96 80 L 98 Oximetry 12/26/16 12/26/16 12/26/16 07:30 08:00 08:30 Temperature 97.3 F L Pulse Rate 66 83 Respiratory 16 20 29 H Rate Blood Pressure 85/48 85/48 110/57 O2 Sat by Pulse 98 97 Oximetry 12/26/16 12/26/16 12/26/16 09:00 10:00 11:00 Temperature Pulse Rate 75 83 90 Respiratory 16 42 H 22 Rate Blood Pressure 110/57 101/54 121/73 O2 Sat by Pulse 97 96 95 Oximetry ABP, PAP, CO, CI - Last 8 Hours Arterial Blood Pressure 110/43 Arterial Blood Pressure 119/49 Arterial Blood Pressure 165/59 Arterial Blood Pressure 124/45 Arterial Blood Pressure 122/46 Labs: Short CBC 12/26/16 Range/Units 05:45 WBC 9.8 (3.8-10.6) k/uL Hgb 12.0 L (13.0-17.5) gm/dL Hct 34.9 L (39.0-53.0) % Plt Count 133 L (150-450) k/uL Neutrophils # 7.7 (1.3-7.7) k/uL BMP 12/26/16 05:45 Sodium 136 L Potassium 4.4 Chloride 104 Carbon Dioxide 25 BUN 25 H Creatinine 0.98 Glucose 107 H Calcium 8.4 Liver Function 12/26/16 Range/Units 05:45 Total Bilirubin 1.4 H (0.2-1.3) mg/dL AST 37 (17-59) U/L ALT 25 (21-72) U/L Alkaline Phosphatase 37 L (38-126) U/L Albumin 3.1 L (3.5-5.0) g/dL Lungs: Respirations are even and nonlabored, breath sounds diminished in the left base O2 sat: 95% on 4 L of oxygen delivered via nasal cannula I/S: 500 mL, patient gave return demonstration of proper use the incentive spirometer Heart: S1S2, regular rate and rhythm bedside telemetry shows a normal sinus rhythm with a rate of 74 Sternum stable, chest incision clean with silverlon dressing clean and dry. Abdomen: Soft, Positive bowel sounds present in all 4 quadrants. CBGs: 88-127 mg/dL U/O: Marginal to Thurston catheter Chest Tubes: Mediastinal and left pleural chest tubes without visible air leak, draining 180 mL of serosanguineous fluid over the last 12 hours and 120 mL of serosanguineous fluid over the last 8 hours. Intake & Output 12/24/16 12/25/16 12/26/16 12/27/16 06:59 06:59 06:59 06:59 Intake Total 2002.450 1969.926 462 Output Total 3688 2046 459 Balance -1684.550 -76.074 3 Weight 88.9 kg 85.8 kg Active Medications Acetaminophen/Hydrocodone Bitart ([place] 5-325) 2 each PO Q4HR PRN PRN Reason: Severe Pain Last Admin: 12/26/16 10:02 Dose: 2 each Acetaminophen/Hydrocodone Bitart ([place] 5-325) 1 each PO Q4HR PRN PRN Reason: Moderate Pain Albuterol/Ipratropium (Duoneb 0.5 Mg-3 Mg/3 Ml Soln) 3 ml INHALATION RT-Q2H PRN PRN Reason: Shortness Of Breath Or Wheezing Albuterol/Ipratropium (Duoneb 0.5 Mg-3 Mg/3 Ml Soln) 3 ml INHALATION RT-QID [facility] Last Admin: 12/26/16 11:29 Dose: 3 ml Aspirin (Aspirin) 325 mg PO DAILY [facility] Last Admin: 12/26/16 08:28 Dose: 325 mg Atorvastatin Calcium (Lipitor) 40 mg PO DAILY [facility] Last Admin: 12/26/16 08:28 Dose: 40 mg Benzocaine/Menthol (Cepacol Lozenge) 1 each MUCOUS MEM Q2H PRN PRN Reason: Sore Throat Bisacodyl (Dulcolax) 10 mg RECTAL DAILY PRN PRN Reason: Constipation Clopidogrel Bisulfate (Plavix) 75 mg PO DAILY [facility] Last Admin: 12/26/16 08:28 Dose: 75 mg Heparin Sodium (Porcine) (Heparin) 5,000 unit SQ Q8HR [facility] Last Admin: 12/26/16 07:46 Dose: 5,000 unit Insulin Human Lispro (Humalog) 0 unit SQ ACHS [facility] PRN Reason: Protocol Lisinopril (Zestril) 10 mg PO DAILY [facility] Last Admin: 12/26/16 08:28 Dose: 10 mg Magnesium Hydroxide (Milk Of Magnesia) 2,400 mg PO BID PRN PRN Reason: Constipation Metoclopramide HCl (Reglan) 10 mg IVP Q4H PRN PRN Reason: Nausea And Vomiting Metoprolol Tartrate (Lopressor) 25 mg PO BID [facility] Last Admin: 12/26/16 08:28 Dose: 25 mg Miscellaneous Information (Phosphorus Per Protocol) 1 each MISCELLANE DAILY PRN ; Protocol PRN Reason: Per Protocol Miscellaneous Information (Potassium Per Protocol) 1 each MISCELLANE DAILY PRN ; Protocol PRN Reason: Per Protocol Miscellaneous Information (Magnesium Per Protocol) 1 each MISCELLANE DAILY PRN ; Protocol PRN Reason: Per Protocol Mupirocin (Bactroban Oint) 1 applic NASAL BID [facility] Stop: 12/27/16 21:01 Last Admin: 12/26/16 08:28 Dose: 1 applic Ondansetron HCl (Zofran) 4 mg IVP Q6HR PRN PRN Reason: Nausea And Vomiting Pantoprazole Sodium (Protonix) 40 mg IVP DAILY [facility] Last Admin: 12/26/16 08:28 Dose: 40 mg Senna/Docusate Sodium (Senokot-S) 2 each PO HS [facility] Last Admin: 12/25/16 20:52 Dose: 2 each Plan: Status post CABG day #2 Good progress DC chest tubes, a line, cordis, Thurston catheter. Continue gentle diuresis. Transfer to stepdown unit
[2016-12-26] MEDS: INSULIN LISPRO (humaLOG) 300 UNIT/3 ML VIAL SQ SCH ×4 (12:00→22:00)
[2016-12-26 12:18] LABS: Glucose,Whole Blood 169 mg/dL (75-99)
--- NOTE | 2016-12-26 13:10 | PN ---
Mr. Falcon is a 76-year-old male who underwent coronary artery bypass grafting. He is doing well this morning. His breathing has been stable. He denies any symptoms of chest pain. He denies any dizziness. He is in sinus mechanism. He continues to be on aspirin once a day, Lipitor 40 mg daily, Plavix 75 mg daily, lisinopril 10 mg daily, metoprolol tartrate 25 mg twice a day. PHYSICAL EXAMINATION: Blood pressure 121/70 with a heart rate in the 90s. LUNGS: Clear with some mild decreased breath sound at bases. HEART: Regular rate and rhythm. S1, S2, no S3, no rub. ABDOMEN: Soft, nontender. EXTREMITIES: No significant edema. Lab data revealed hemoglobin of 12, BUN and creatinine 25 and 0.98. Chest x-ray revealed mild congestion. IMPRESSION: 1. Status post coronary artery bypass grafting, stable. 2. Hypertension. 3. Hyperlipidemia. RECOMMENDATION: Will continue current therapy. Continue incentive spirometry, increase his level of activity.
[2016-12-26 16:57] LABS: Glucose,Whole Blood 112 mg/dL (75-99)
--- NOTE | 2016-12-26 17:30 | P.PN ---
Subjective 76-year-old male patient underwent three-vessel bypass surgery and the patient was brought into the intensive care unit and a critically care management consultation was placed. The patient is currently sedated with Diprivan at 50 mics. His intubated on a mechanical ventilator at a rate of 12, tidal volume 550, FiO2 initiate 100% currently is down to 50% and a PEEP of 5. Post surgical chest x-ray shows adequate expansion of both lungs, ET tube is in a good location, there is a mediastinal and the left pleural chest tube, [place]- Stephan catheter in place and NG tube is in place. Hemodynamically, the patient has a PA pressure of 35/20 with a cardiac index of 2.3. The patient is on a clevidipine drip at the rate of 6 mg an hour and the patient is also on nitroglycerin at 25 mcg/m. He is producing adequate amount of urine output. Output from the chest tube is minimal and the total amount of output from the chest tube since his arrival is 100. He is sedated with Diprivan at 50 mics. His an alcoholic. He drinks alcohol on a daily basis and drinks shock. The patient is also on an insulin drip for blood sugar control. No other significant events postop. He is a ex-smoker. No reported history of COPD. On the patient is being seen in follow-up. The patient was seen immediately postoperative and following that the patient was gradually weaned off the mechanical ventilator and he was extubated blood any major difficulties. This morning, the patient is on 4 L of oxygen by nasal cannula and his FiO2 is being gradually weaned off. He is postop day #1. His chest x- ray shows postsurgical changes with atelectatic changes in lung bases and small effusions. Chest tubes are in good location. Output from the chest tubes had been around 10-15 mL on an hourly basis. Hemodynamically, the patient is hypertensive and he is still on a clevidipine drip for blood pressure control and currently is on 6 mg an hour. He is producing adequate amount of urine output. He is using incentive spirometer. Is awake and alert and following commands and answering questions appropriately. [place]-Stephan catheter in place and this will be hopefully taken off after consulting with cardiothoracic surgery. He is doing aggressive pulmonary toileting. He has a hemoglobin of 13.6. Renal function is stable. No other significant events over the past 24 hours. On 12/26/2016, the patient is doing well and he is being seen in follow-up in the intensive care unit. He has done extremely well during surgery and the patient is postop day #2. Chest tubes have been REMOVED TODAY AND THE PATIENT IS ON FEW LITERS OF OXYGEN NASAL CANNULA. HEMODYNAMICALLY STABLE. BLOOD PRESSURE IS UNDER GOOD CONTROL. HE IS PRODUCING ADEQUATE AMOUNT OF URINE OUTPUT. HE IS USING INCENTIVE SPIROMETER. SURGICAL WOUND SITE AT ALL DRY CLEAN AND INTACT. Objective - Vital Signs Vital signs: Vital Signs Temp 100 F H 12/26/16 14:56 Pulse 87 12/26/16 14:56 Resp 18 12/26/16 14:56 BP 106/58 12/26/16 14:56 Pulse Ox 91 L 12/26/16 14:56 Intake & Output 12/25/16 12/26/16 12/26/16 18:59 06:59 18:59 Intake Total 1261.796 708.130 462 Output Total 2697 520 8855 Balance -119.204 43.130 -647 Weight 88.9 kg 85.8 kg Intake: IV 889 666 212 0.9 flush 69 66 12 ACETAMINOPHEN IV (For NPO 200 ) 1,000 mg In Empty Bag 1 bag @ 400 mls/hr IVPB Q6HR [facility] Rx#:[id number] Lactated Ringers 1,000 ml 500 600 200 @ 50 mls/hr IV .Q20H [facility] Rx#:[id number] cardiac output 20 ceFAZolin 2 gm In Sodium 100 Chloride 0.9% 100 ml @ 100 mls/hr IVPB Q8H [facility] Rx#:[id number] Intake, IV Titration 82.796 42.130 Amount Clevidipine Butyrate 25 69.600 mg In Empty Bag 1 bag @ 1 MG/HR 2 mls/hr IV .Q24H [facility] Rx#:[id number] Insulin Regular 100 unit 13.196 42.130 In Sodium Chloride 0.9% 100 ml @ Per Protocol IV .Q0M [facility] Rx#:[id number] Oral 290 250 Output: Chest Tube Drainage 240 180 150 Left Pleural/Mediastinal 240 180 150 Urine 1141 485 959 Other: Voiding Method Indwelling Catheter Indwelling Catheter Indwelling Catheter ABP, PAP, CO, CI - Last Documented Arterial Blood Pressure 110/43 Pulmonary Artery Pressure 27/12 Cardiac Output 5.1 Cardiac Index 2.5 - Exam Head exam was generally normal. There was no scleral icterus or corneal arcus. Mucous membranes were moist.Neck was supple and without jugular venous distension, thyromegaly, or carotid bruits. Carotids were easily palpable bilaterally. There was no adenopathy. The patient has a Cordis in the right IJ. Lungs sounds are diminished bilaterally.. Sternum stable clean and intact.Cardiac exam revealed the PMI to be normally situated and sized. The rhythm was regular and no extrasystoles were noted during several minutes of auscultation. The first and second heart sounds were normal and physiologic splitting of the second heart sound was noted. There were no murmurs, rubs, clicks, or gallops.Abdominal exam revealed normal bowel sounds. The abdomen was soft, non-tender, and without masses, organomegaly, or appreciable enlargement of the abdominal aorta.Examination of the extremities revealed easily palpable radial, femoral and pedal pulses. There was no cyanosis, clubbing or edema. Surgical wound site and lower extremity are all dry clean and intact. - Labs CBC & Chem 7: 12/26/16 05:45 12/26/16 05:45 Labs: Abnormal Lab Results - Last 24 Hours (Table) 12/25/16 12/26/16 12/26/16 Range/Units 17:40 00:30 05:45 RBC (4.30-5.90) m/uL Hgb (13.0-17.5) gm/dL Hct (39.0-53.0) % Plt Count (150-450) k/uL Sodium 136 L (137-145) mmol/L BUN 25 H (9-20) mg/dL Glucose 107 H (74-99) mg/dL POC Glucose (mg/dL) 146 H 120 H (75-99) mg/dL Total Bilirubin 1.4 H (0.2-1.3) mg/dL Alkaline Phosphatase 37 L (38-126) U/L Total Protein 5.4 L (6.3-8.2) g/dL Albumin 3.1 L (3.5-5.0) g/dL 12/26/16 12/26/16 12/26/16 Range/Units 05:45 08:40 12:16 RBC 3.83 L (4.30-5.90) m/uL Hgb 12.0 L (13.0-17.5) gm/dL Hct 34.9 L (39.0-53.0) % Plt Count 133 L (150-450) k/uL Sodium (137-145) mmol/L BUN (9-20) mg/dL Glucose (74-99) mg/dL POC Glucose (mg/dL) 127 H 169 H (75-99) mg/dL Total Bilirubin (0.2-1.3) mg/dL Alkaline Phosphatase (38-126) U/L Total Protein (6.3-8.2) g/dL Albumin (3.5-5.0) g/dL 12/26/16 Range/Units 16:54 RBC (4.30-5.90) m/uL Hgb (13.0-17.5) gm/dL Hct (39.0-53.0) % Plt Count (150-450) k/uL Sodium (137-145) mmol/L BUN (9-20) mg/dL Glucose (74-99) mg/dL POC Glucose (mg/dL) 112 H (75-99) mg/dL Total Bilirubin (0.2-1.3) mg/dL Alkaline Phosphatase (38-126) U/L Total Protein (6.3-8.2) g/dL Albumin (3.5-5.0) g/dL Assessment and Plan Plan: Assessment 1 multivessel coronary artery disease and the patient is post three-vessel bypass surgery, postop day #2 2 post thoracotomy Status and the patient was extubated without any major difficulties. Currently on high flow oxygen which is being gradually weaned off. Chest tubes are all in place. No major respiratory difficulties. Today' s chest x-ray showing postsurgical changes. On 12/26/2016 the patient is doing extremely well. All of the chest tubes have been removed and the patient's chest x-ray shows some limited atelectatic changes in lung bases bilaterally be given a dose of Lasix. 3 stable hemodynamics 4 postoperative hypertension, recovered 5 alcoholism Plan To be using incentive spirometer. Chest with this patient out to a telemetry floor. Continue using incentive spirometer. Pulmonary toileting. Continue bronchodilators. Continue routine postoperative care. We'll follow.
[2016-12-26 21:14] LABS: Glucose,Whole Blood 147 mg/dL (75-99)
[2016-12-26] MEDS: SENNOSIDES-DOCUSATE SODIUM 1 EACH TAB PO SCH (22:01)
[2016-12-27] MEDS: HEPARIN SODIUM,PORCINE 5,000 UNIT/ML 1 ML VIAL SQ SCH ×4 (00:27→22:12)
[2016-12-27 03:06] LABS: Glucose,Whole Blood 113 mg/dL (75-99)
[2016-12-27 06:35] LABS: Glucose,Whole Blood 132 mg/dL (75-99)
[2016-12-27] MEDS: INSULIN LISPRO (humaLOG) 300 UNIT/3 ML VIAL SQ SCH ×4 (06:53→22:13)
[2016-12-27 06:54] LABS: Basophils % (A) 0 %; CH 31.2; CHCM 33.6; Eosinophils # (A) 0.2 k/uL (0-0.7); Eosinophils % (A) 2 %; HCT 34.3 % (39.0-53.0); HDW 2.54; HGB 11.5 gm/dL (13.0-17.5); Luc # (Auto) 0.23; Luc % (Auto) 3; Lymphocytes # (A) 1.4 k/uL (1.0-4.8); Lymphocytes % (A) 17 %; MCH 31.2 pg (25.0-35.0); MCHC 33.5 g/dL (31.0-37.0); MCV 93.2 fL (80.0-100.0); Mean Platelet Volume 8.1; Monocytes # (A) 0.4 k/uL (0-1.0); Monocytes % (A) 5 %; Neutrophils # (A) 6.2 k/uL (1.3-7.7); Neutrophils % (A) 73 %; RBC 3.68 m/uL (4.30-5.90); RDW 12.7 % (11.5-15.5); WBC 8.4 k/uL (3.8-10.6)
[2016-12-27 06:56] LABS: Ionized Calcium 5.1 mg/dL (4.5-5.3)
--- NOTE | 2016-12-27 07:09 | XR ---
EXAMINATION TYPE: XR chest 2V DATE OF EXAM: 12/27/2016 6:20 AM COMPARISON: 12/26/2016 TECHNIQUE: PA and lateral views submitted. HISTORY: Post open heart surgery FINDINGS: Bilateral consolidation and pleural effusion noted. Postsurgical changes identified. No pneumothorax. Chest tubes have been removed. Atherosclerotic change aorta. Arthropathy of the shoulders. IMPRESSION: 1. Stable bilateral effusion and basilar consolidation. 2. Postoperative changes
[2016-12-27 07:14] LABS: ALT 22 U/L (21-72); AST 33 U/L (17-59); Alkaline Phosphatase 44 U/L (38-126); Anion Gap 9 mmol/L; Blood Urea Nitrogen 28 mg/dL (9-20); Calcium 8.4 mg/dL (8.4-10.2); Carbon Dioxide 23 mmol/L (22-30); Chloride 107 mmol/L (98-107); Glucose 124 mg/dL (74-99); Magnesium 2.2 mg/dL (1.6-2.3); Non-African American GFR(MDRD) >60 (>60 ml/min/1.73 sqM); Sodium 139 mmol/L (137-145); Total Bilirubin 0.9 mg/dL (0.2-1.3); Total Protein 5.1 g/dL (6.3-8.2)
[2016-12-27] MEDS: ATORVASTATIN 40 MG TAB PO SCH (08:47)
[2016-12-27] MEDS: PANTOPRAZOLE 40 MG/10 ML VIAL IVP SCH (08:47)
[2016-12-27] MEDS: CLOPIDOGREL 75 MG TAB PO SCH (08:47)
[2016-12-27] MEDS: METOPROLOL TARTRATE 25 MG TAB PO SCH ×2 (08:47→22:11)
[2016-12-27] MEDS: LISINOPRIL 10 MG TAB PO SCH (08:47)
[2016-12-27] MEDS: ASPIRIN 325 MG TAB PO SCH (08:47)
[2016-12-27] MEDS: MUPIROCIN 2% OINT 22 GM TUBE NASAL SCH ×2 (08:47→22:14)
[2016-12-27] MEDS: IPRATROPIUM-ALBUTEROL 3 ML NEB INHALATION SCH ×4 (09:00→19:38)
--- NOTE | 2016-12-27 09:31 | P.PN ---
Subjective Principal diagnosis: Coronary artery disease POD #3 off pump CABG 3 with ISIDRO to LAD and SVG sequentially to diagonal 1 and diagonal 2, endovascular vein harvest of the right greater saphenous vein Patient currently sitting up in chair in no apparent distress. Denies pain. Eating breakfast. Objective - Vital Signs Vital signs: Vital Signs Temp 98.8 F 12/27/16 08:55 Pulse 91 12/27/16 08:55 Resp 20 12/27/16 08:55 BP 132/73 12/27/16 08:55 Pulse Ox 92 L 12/27/16 08:55 Intake & Output 12/26/16 12/27/16 12/27/16 18:59 06:59 18:59 Intake Total 702 480 180 Output Total 1459 650 Balance -757 -170 180 Weight 85.3 kg Intake: IV 212 0.9 flush 12 Lactated Ringers 1,000 ml 200 @ 50 mls/hr IV .Q20H [facility] Rx#:[id number] Oral 490 480 180 Output: Chest Tube Drainage 150 Left Pleural/Mediastinal 150 Urine 1309 650 Uretheral ([place]) 350 Other: Voiding Method Indwelling Catheter Urinal Urinal # Voids 1 ABP, PAP, CO, CI - Last Documented Arterial Blood Pressure 110/43 Pulmonary Artery Pressure 27/12 Cardiac Output 5.1 Cardiac Index 2.5 - Constitutional General appearance: Present: cooperative, no acute distress - Respiratory Details: Lungs sounds diminished bilaterally. Respirations even, nonlabored. Currently on 3 L nasal cannula. Only able to achieve 500 mL on incentive spirometry. - Cardiovascular Details: S1, S2 present. Regular rate and rhythm, normal sinus rhythm on telemetry. Chest stable. Heart hugger in place with patient demonstrating appropriate use. No edema present. Teds, SCDs present. - Gastrointestinal Gastrointestinal Comment(s): Abdomen soft, nontender, nondistended. Active bowel sounds 4 quadrants. Tolerating diet. - Genitourinary Genitourinary Comment(s): Continues to void clear, yellow urine per urinal. - Integumentary Integumentary Comment(s): Anterior chest incision covered with dry intact silver dressing. Right lower extremity EVH site well approximated - Musculoskeletal Musculoskeletal: Present: gait normal - Psychiatric Psychiatric: Present: A&O x's 3, appropriate affect, intact judgment & insight - Labs CBC & Chem 7: 12/27/16 06:23 02/27/17 06:23 Labs: Abnormal Lab Results - Last 24 Hours (Table) 12/26/16 12/26/16 12/26/16 Range/Units 12:16 16:54 21:11 RBC (4.30-5.90) m/uL Hgb (13.0-17.5) gm/dL Hct (39.0-53.0) % Plt Count (150-450) k/uL BUN (9-20) mg/dL Glucose (74-99) mg/dL POC Glucose (mg/dL) 169 H 112 H 147 H (75-99) mg/dL Total Protein (6.3-8.2) g/dL Albumin (3.5-5.0) g/dL 12/27/16 12/27/16 12/27/16 Range/Units 02:48 06:22 06:23 RBC 3.68 L (4.30-5.90) m/uL Hgb 11.5 L (13.0-17.5) gm/dL Hct 34.3 L (39.0-53.0) % Plt Count 128 L (150-450) k/uL BUN (9-20) mg/dL Glucose (74-99) mg/dL POC Glucose (mg/dL) 113 H 132 H (75-99) mg/dL Total Protein (6.3-8.2) g/dL Albumin (3.5-5.0) g/dL 12/27/16 Range/Units 06:23 RBC (4.30-5.90) m/uL Hgb (13.0-17.5) gm/dL Hct (39.0-53.0) % Plt Count (150-450) k/uL BUN 28 H (9-20) mg/dL Glucose 124 H (74-99) mg/dL POC Glucose (mg/dL) (75-99) mg/dL Total Protein 5.1 L (6.3-8.2) g/dL Albumin 2.8 L (3.5-5.0) g/dL - Imaging and Cardiology Chest x-ray: report reviewed, image reviewed Assessment and Plan (1) Coronary artery disease Status: Acute (2) Hypertension Status: Acute (3) Hyperlipidemia Status: Acute (4) History of stroke Status: Acute Plan: 1. Continue aspirin, statin, Plavix, Mani, beta eric. 2. Wean O2 as tolerated. Encourage incentive spirometry use. 3. Increase activity, ambulate in hallway. PT to follow. 4. GI/DVT prophylaxis. 5. No diuresis today. 6. Anticipate discharge in the next 24-48 hours. Time with Patient: Greater than 30
[2016-12-27 11:39] LABS: Glucose,Whole Blood 98 mg/dL (75-99)
[2016-12-27 11:48] LABS: ABG Base Excess 0.6 mmol/L; ABG HCO3 23 mmol/L (21-25); ABG Oxygen Saturation 99.8 % (94-97); ABG PCO2 32 mmHg (35-45); ABG PH 7.47 (7.35-7.45); ABG PO2 204 mmHg (83-108); ABG TCO2 24 mmol/L (19-24)
[2016-12-27 11:49] LABS: ABG Base Excess -0.2 mmol/L; ABG HCO3 23 mmol/L (21-25); ABG Oxygen Saturation 98.8 % (94-97); ABG PCO2 34 mmHg (35-45); ABG PH 7.45 (7.35-7.45); ABG PO2 117 mmHg (83-108); ABG TCO2 24 mmol/L (19-24)
[2016-12-27 11:50] LABS: ABG Base Excess -0.2 mmol/L; ABG HCO3 23 mmol/L (21-25); ABG Oxygen Saturation 98.2 % (94-97); ABG PCO2 33 mmHg (35-45); ABG PH 7.45 (7.35-7.45); ABG PO2 102 mmHg (83-108); ABG TCO2 24 mmol/L (19-24)
[2016-12-27 11:51] LABS: ABG Base Excess -1.4 mmol/L; ABG HCO3 23 mmol/L (21-25); ABG Oxygen Saturation 96.8 % (94-97); ABG PCO2 39 mmHg (35-45); ABG PH 7.38 (7.35-7.45); ABG PO2 90 mmHg (83-108); ABG TCO2 24 mmol/L (19-24)
--- NOTE | 2016-12-27 13:22 | P.PN ---
Subjective Principal diagnosis: Status post CABG 76-year-old male patient underwent three-vessel bypass surgery and the patient was brought into the intensive care unit and a critically care management consultation was placed. The patient is currently sedated with Diprivan at 50 mics. His intubated on a mechanical ventilator at a rate of 12, tidal volume 550, FiO2 initiate 100% currently is down to 50% and a PEEP of 5. Post surgical chest x-ray shows adequate expansion of both lungs, ET tube is in a good location, there is a mediastinal and the left pleural chest tube, [place]- Stephan catheter in place and NG tube is in place. Hemodynamically, the patient has a PA pressure of 35/20 with a cardiac index of 2.3. The patient is on a clevidipine drip at the rate of 6 mg an hour and the patient is also on nitroglycerin at 25 mcg/m. He is producing adequate amount of urine output. Output from the chest tube is minimal and the total amount of output from the chest tube since his arrival is 100. He is sedated with Diprivan at 50 mics. His an alcoholic. He drinks alcohol on a daily basis and drinks shock. The patient is also on an insulin drip for blood sugar control. No other significant events postop. He is a ex-smoker. No reported history of COPD. On the patient is being seen in follow-up. The patient was seen immediately postoperative and following that the patient was gradually weaned off the mechanical ventilator and he was extubated blood any major difficulties. This morning, the patient is on 4 L of oxygen by nasal cannula and his FiO2 is being gradually weaned off. He is postop day #1. His chest x- ray shows postsurgical changes with atelectatic changes in lung bases and small effusions. Chest tubes are in good location. Output from the chest tubes had been around 10-15 mL on an hourly basis. Hemodynamically, the patient is hypertensive and he is still on a clevidipine drip for blood pressure control and currently is on 6 mg an hour. He is producing adequate amount of urine output. He is using incentive spirometer. Is awake and alert and following commands and answering questions appropriately. [place]-Stephan catheter in place and this will be hopefully taken off after consulting with cardiothoracic surgery. He is doing aggressive pulmonary toileting. He has a hemoglobin of 13.6. Renal function is stable. No other significant events over the past 24 hours. On 12/26/2016, the patient is doing well and he is being seen in follow-up in the intensive care unit. He has done extremely well during surgery and the patient is postop day #2. Chest tubes have been REMOVED TODAY AND THE PATIENT IS ON FEW LITERS OF OXYGEN NASAL CANNULA. HEMODYNAMICALLY STABLE. BLOOD PRESSURE IS UNDER GOOD CONTROL. HE IS PRODUCING ADEQUATE AMOUNT OF URINE OUTPUT. HE IS USING INCENTIVE SPIROMETER. SURGICAL WOUND SITE AT ALL DRY CLEAN AND INTACT. On 12/27/2016, patient is doing well, he is basically asymptomatic, and his postoperative day #3. [place]in today is 11.5 electrolytes are normal, renal profile is relatively normal. Objective - Vital Signs Vital signs: Vital Signs Temp 98.4 F 12/27/16 11:00 Pulse 88 12/27/16 11:00 Resp 18 12/27/16 11:00 BP 146/68 12/27/16 11:00 Pulse Ox 96 12/27/16 11:00 Intake & Output 12/26/16 12/27/16 12/27/16 18:59 06:59 18:59 Intake Total 702 480 180 Output Total 1459 650 Balance -757 -170 180 Weight 85.3 kg Intake: IV 212 0.9 flush 12 Lactated Ringers 1,000 ml 200 @ 50 mls/hr IV .Q20H [facility] Rx#:[id number] Oral 490 480 180 Output: Chest Tube Drainage 150 Left Pleural/Mediastinal 150 Urine 1309 650 Uretheral ([place]) 350 Other: Voiding Method Indwelling Catheter Urinal Urinal # Voids 1 ABP, PAP, CO, CI - Last Documented Arterial Blood Pressure 110/43 Pulmonary Artery Pressure 27/12 Cardiac Output 5.1 Cardiac Index 2.5 - Exam Physical Exam: Revealed a 76-year-old white male in no distress. HEENT:[Neck is supple.] [No neck masses.] [No thyromegaly.] [No JVD.] Chest: [Clear throughout, no crackles, no rhonchi, no wheezes.] Cardiac Exam: [Normal S1 and S2, no S3 gallop, no murmur.] Abdomen: [Soft, nontender, no megaly, no rebound, no guarding, normal bowel sounds.] Extremities: [No clubbing, no edema, no cyanosis.] Neurological Exam: [No focal neurologic deficit.] - Labs CBC & Chem 7: 12/27/16 06:23 12/27/16 06:23 Labs: Abnormal Lab Results - Last 24 Hours (Table) 12/24/16 12/24/16 12/24/16 Range/Units 11:46 12:40 13:05 RBC (4.30-5.90) m/uL Hgb (13.0-17.5) gm/dL Hct (39.0-53.0) % Plt Count (150-450) k/uL ABG pH 7.47 H (7.35-7.45) ABG pCO2 32 L 34 L 33 L (35-45) mmHg ABG pO2 204 H 117 H (83-108) mmHg ABG O2 Saturation 99.8 H 98.8 H 98.2 H (94-97) % BUN (9-20) mg/dL Glucose (74-99) mg/dL POC Glucose (mg/dL) (75-99) mg/dL Total Protein (6.3-8.2) g/dL Albumin (3.5-5.0) g/dL 12/26/16 12/26/16 12/27/16 Range/Units 16:54 21:11 02:48 RBC (4.30-5.90) m/uL Hgb (13.0-17.5) gm/dL Hct (39.0-53.0) % Plt Count (150-450) k/uL ABG pH (7.35-7.45) ABG pCO2 (35-45) mmHg ABG pO2 (83-108) mmHg ABG O2 Saturation (94-97) % BUN (9-20) mg/dL Glucose (74-99) mg/dL POC Glucose (mg/dL) 112 H 147 H 113 H (75-99) mg/dL Total Protein (6.3-8.2) g/dL Albumin (3.5-5.0) g/dL 12/27/16 12/27/16 12/27/16 Range/Units 06:22 06:23 06:23 RBC 3.68 L (4.30-5.90) m/uL Hgb 11.5 L (13.0-17.5) gm/dL Hct 34.3 L (39.0-53.0) % Plt Count 128 L (150-450) k/uL ABG pH (7.35-7.45) ABG pCO2 (35-45) mmHg ABG pO2 (83-108) mmHg ABG O2 Saturation (94-97) % BUN 28 H (9-20) mg/dL Glucose 124 H (74-99) mg/dL POC Glucose (mg/dL) 132 H (75-99) mg/dL Total Protein 5.1 L (6.3-8.2) g/dL Albumin 2.8 L (3.5-5.0) g/dL Assessment and Plan Plan: 1 multivessel coronary artery disease and the patient is post three-vessel bypass surgery, postop day # 3 2 post thoracotomy Status and the patient was extubated without any major difficulties. Currently on high flow oxygen which is being gradually weaned off. Chest tubes are all in place. No major respiratory difficulties. Today' s chest x-ray showing postsurgical changes. On 12/26/2016 the patient is doing extremely well. All of the chest tubes have been removed and the patient's chest x-ray shows some limited atelectatic changes in lung bases bilaterally be given a dose of Lasix. On 12/27/2016, patient continues to do well, relatively asymptomatic, and progressing quite nicely. 3 stable hemodynamics 4 postoperative hypertension, recovered 5 alcoholism Recommendation: Continue incentive spirometry, ambulate, chest x-ray showed minimal bibasilar atelectasis which will improve with incentive spirometry and bronchodilators. As well as ambulation. Time with Patient: Less than 30
--- NOTE | 2016-12-27 13:28 | P.PN ---
Subjective Principal diagnosis: CABG This is a 76-year-old gentleman who is status post coronary artery bypass grafting surgery, he was seen and examined this morning. Doing well overall. Denies any shortness of breath or chest discomfort. Remaining in normal sinus rhythm. He does state that it hurts to take a deep breath, patient has been encouraged to use his incentive spirometry for more frequently. Chest x-ray shows stable bilateral effusions and bibasilar consolidation. Blood pressure 132/70 with a heart rate in the 80s. Objective - Vital Signs Vital signs: Vital Signs Temp 98.4 F 12/27/16 11:00 Pulse 88 12/27/16 11:00 Resp 18 12/27/16 11:00 BP 146/68 12/27/16 11:00 Pulse Ox 96 12/27/16 11:00 Intake & Output 12/26/16 12/27/16 12/27/16 18:59 06:59 18:59 Intake Total 702 480 180 Output Total 1459 650 Balance -757 -170 180 Weight 85.3 kg Intake: IV 212 0.9 flush 12 Lactated Ringers 1,000 ml 200 @ 50 mls/hr IV .Q20H [facility] Rx#:[id number] Oral 490 480 180 Output: Chest Tube Drainage 150 Left Pleural/Mediastinal 150 Urine 1309 650 Uretheral ([place]) 350 Other: Voiding Method Indwelling Catheter Urinal Urinal # Voids 1 ABP, PAP, CO, CI - Last Documented Arterial Blood Pressure 110/43 Pulmonary Artery Pressure 27/12 Cardiac Output 5.1 Cardiac Index 2.5 - Exam PHYSICAL EXAMINATION: HEENT: Head is atraumatic, normocephalic. Pupils equal, round. Neck is supple. There is no elevated jugular venous pressure. HEART EXAMINATION: Heart S1, S2 normal. No murmur or gallop heard. CHEST EXAMINATION: Lungs reveal diminished air entry to bilateral bases. ] ABDOMEN: Soft, nontender. Bowel sounds are heard. No organomegaly noted. EXTREMITIES: 2+ peripheral pulses with trace evidence of peripheral edema and no calf tenderness noted. NEUROLOGIC patient is awake, alert and oriented -3. . - Labs CBC & Chem 7: 12/27/16 06:23 12/27/16 06:23 Labs: Abnormal Lab Results - Last 24 Hours (Table) 12/24/16 12/24/16 12/24/16 Range/Units 11:46 12:40 13:05 RBC (4.30-5.90) m/uL Hgb (13.0-17.5) gm/dL Hct (39.0-53.0) % Plt Count (150-450) k/uL ABG pH 7.47 H (7.35-7.45) ABG pCO2 32 L 34 L 33 L (35-45) mmHg ABG pO2 204 H 117 H (83-108) mmHg ABG O2 Saturation 99.8 H 98.8 H 98.2 H (94-97) % BUN (9-20) mg/dL Glucose (74-99) mg/dL POC Glucose (mg/dL) (75-99) mg/dL Total Protein (6.3-8.2) g/dL Albumin (3.5-5.0) g/dL 12/26/16 12/26/16 12/27/16 Range/Units 16:54 21:11 02:48 RBC (4.30-5.90) m/uL Hgb (13.0-17.5) gm/dL Hct (39.0-53.0) % Plt Count (150-450) k/uL ABG pH (7.35-7.45) ABG pCO2 (35-45) mmHg ABG pO2 (83-108) mmHg ABG O2 Saturation (94-97) % BUN (9-20) mg/dL Glucose (74-99) mg/dL POC Glucose (mg/dL) 112 H 147 H 113 H (75-99) mg/dL Total Protein (6.3-8.2) g/dL Albumin (3.5-5.0) g/dL 12/27/16 12/27/16 12/27/16 Range/Units 06:22 06:23 06:23 RBC 3.68 L (4.30-5.90) m/uL Hgb 11.5 L (13.0-17.5) gm/dL Hct 34.3 L (39.0-53.0) % Plt Count 128 L (150-450) k/uL ABG pH (7.35-7.45) ABG pCO2 (35-45) mmHg ABG pO2 (83-108) mmHg ABG O2 Saturation (94-97) % BUN 28 H (9-20) mg/dL Glucose 124 H (74-99) mg/dL POC Glucose (mg/dL) 132 H (75-99) mg/dL Total Protein 5.1 L (6.3-8.2) g/dL Albumin 2.8 L (3.5-5.0) g/dL Assessment and Plan Plan: Assessment and plan #1 status post coronary artery bypass grafting surgery #2 hypertension #3 EtOH abuse #4 hyperlipidemia Plan We will continue the patient on his current medications. He has been encouraged regarding the use of his incentive spirometry. DNP note has been reviewed, I agree with a documented findings and plan of care. Patient was seen and examined.
[2016-12-27 16:23] LABS: Glucose,Whole Blood 125 mg/dL (75-99)
--- NOTE | 2016-12-27 17:37 | P.PN ---
Subjective Date of service 12/27/2016. Progress note being dictated for Dr. Bolaños. Interval history: This a 76-year-old gentleman admitted with multivessel CAD, status post CABG and multiple other medical issues. Diet intake improving, denies nausea or vomiting. Blood sugars ranging from 90s to 130s. Incentive spirometer up to 500. Chest x-ray reports stable bilateral effusions, bibasilar consolidation. Telemetry sinus rhythm. States feeling better. Objective - Vital Signs Vital signs: Vital Signs Temp 97.1 F L 12/27/16 15:47 Pulse 88 12/27/16 15:47 Resp 18 12/27/16 15:47 BP 118/62 12/27/16 15:47 Pulse Ox 97 12/27/16 15:47 Intake & Output 12/26/16 12/27/16 12/27/16 18:59 06:59 18:59 Intake Total 702 480 530 Output Total 1459 650 200 Balance -757 -170 330 Weight 85.3 kg Intake: IV 212 0.9 flush 12 Lactated Ringers 1,000 ml 200 @ 50 mls/hr IV .Q20H [facility] Rx#:[id number] Oral 490 480 530 Output: Chest Tube Drainage 150 Left Pleural/Mediastinal 150 Urine 1309 650 200 Uretheral ([place]) 350 Other: Voiding Method Indwelling Catheter Urinal Urinal # Voids 1 ABP, PAP, CO, CI - Last Documented Arterial Blood Pressure 110/43 Pulmonary Artery Pressure 27/12 Cardiac Output 5.1 Cardiac Index 2.5 - Exam PHYSICAL EXAM: VITAL SIGNS: As above GENERAL: [Sitting up at side of bed, no acute] HEENT: [Pupils equal conjunctiva normal.] NECK: [Supple, no JVD] RESPIRATORY EFFORT:[Normal] LUNGS: [Diminished, no crackles wheezes or rhonchi] CARDIOVASCULAR[regular S1 and S2, no murmurs rubs or gallops, trace edema] GI: [Abdomen soft, nontender, positive bowel sounds.] PSYCH: [Alert and oriented -3, mood and affect normal.] NEURO: No focal deficits, moves all 4 extremities, strength and sensation intact - Labs CBC & Chem 7: 12/27/16 06:23 12/27/16 06:23 Labs: Abnormal Lab Results - Last 24 Hours (Table) 12/24/16 12/24/16 12/24/16 Range/Units 11:46 12:40 13:05 RBC (4.30-5.90) m/uL Hgb (13.0-17.5) gm/dL Hct (39.0-53.0) % Plt Count (150-450) k/uL ABG pH 7.47 H (7.35-7.45) ABG pCO2 32 L 34 L 33 L (35-45) mmHg ABG pO2 204 H 117 H (83-108) mmHg ABG O2 Saturation 99.8 H 98.8 H 98.2 H (94-97) % BUN (9-20) mg/dL Glucose (74-99) mg/dL POC Glucose (mg/dL) (75-99) mg/dL Total Protein (6.3-8.2) g/dL Albumin (3.5-5.0) g/dL 12/26/16 12/27/16 12/27/16 Range/Units 21:11 02:48 06:22 RBC (4.30-5.90) m/uL Hgb (13.0-17.5) gm/dL Hct (39.0-53.0) % Plt Count (150-450) k/uL ABG pH (7.35-7.45) ABG pCO2 (35-45) mmHg ABG pO2 (83-108) mmHg ABG O2 Saturation (94-97) % BUN (9-20) mg/dL Glucose (74-99) mg/dL POC Glucose (mg/dL) 147 H 113 H 132 H (75-99) mg/dL Total Protein (6.3-8.2) g/dL Albumin (3.5-5.0) g/dL 12/27/16 12/27/16 12/27/16 Range/Units 06:23 06:23 16:11 RBC 3.68 L (4.30-5.90) m/uL Hgb 11.5 L (13.0-17.5) gm/dL Hct 34.3 L (39.0-53.0) % Plt Count 128 L (150-450) k/uL ABG pH (7.35-7.45) ABG pCO2 (35-45) mmHg ABG pO2 (83-108) mmHg ABG O2 Saturation (94-97) % BUN 28 H (9-20) mg/dL Glucose 124 H (74-99) mg/dL POC Glucose (mg/dL) 125 H (75-99) mg/dL Total Protein 5.1 L (6.3-8.2) g/dL Albumin 2.8 L (3.5-5.0) g/dL Assessment and Plan Plan: 1. Multivessel CAD, status post CABG. 2. [Hypertension]. 3. [Hyperlipidemia]. 4. [Bibasilar atelectasis, minimal]. Plan: Continue on current medication regime , nebulized bronchodilators, aspirin , Plavix, beta eric, SARAI inhibitor, statin, monitoring and symptomatic treatment. Aggressive pulmonary toileting, patient reinstructed on incentive spirometer use and rationale. Increase ambulation as tolerated. Close monitoring of Accu-Cheks. Patient lives alone, 3 years ago; notified case management for subacute rehab workup. PT/OT. The impression and plan of care has been dictated as directed. : I performed a H&P examination of this patient and discussed the same with the dictator. I agree with the dictator's note. Any additional findings/opinions/ etc. will be noted.
[2016-12-27 21:04] LABS: Glucose,Whole Blood 143 mg/dL (75-99)
[2016-12-27] MEDS: SENNOSIDES-DOCUSATE SODIUM 1 EACH TAB PO SCH (22:11)
[2016-12-28 02:34] LABS: Glucose,Whole Blood 106 mg/dL (75-99)
[2016-12-28] MEDS: PANTOPRAZOLE 40 MG TABLET PO SCH (06:36)
[2016-12-28 06:38] LABS: ALT 44 U/L (21-72); AST 57 U/L (17-59); Alkaline Phosphatase 49 U/L (38-126); Anion Gap 10 mmol/L; Blood Urea Nitrogen 16 mg/dL (9-20); Calcium 8.5 mg/dL (8.4-10.2); Carbon Dioxide 24 mmol/L (22-30); Chloride 106 mmol/L (98-107); Glucose 98 mg/dL (74-99); Magnesium 2.1 mg/dL (1.6-2.3); Non-African American GFR(MDRD) >60 (>60 ml/min/1.73 sqM); Potassium 4.2 mmol/L (3.5-5.1); Sodium 140 mmol/L (137-145); Total Bilirubin 1.1 mg/dL (0.2-1.3); Total Protein 5.7 g/dL (6.3-8.2)
[2016-12-28] MEDS: INSULIN LISPRO (humaLOG) 300 UNIT/3 ML VIAL SQ SCH ×4 (06:40→20:53)
[2016-12-28 06:41] LABS: Glucose,Whole Blood 96 mg/dL (75-99)
[2016-12-28] MEDS ORDERED: DEXTROSE 5% IN WATER 100 ML with AMIODARONE 150 MG IV ONE (07:05)
[2016-12-28 07:14] LABS: Basophils % (A) 0 %; CH 31.4; CHCM 34.1; Eosinophils # (A) 0.2 k/uL (0-0.7); Eosinophils % (A) 3 %; HCT 34.6 % (39.0-53.0); HDW 2.57; HGB 11.8 gm/dL (13.0-17.5); Luc # (Auto) 0.25; Luc % (Auto) 3; Lymphocytes # (A) 1.6 k/uL (1.0-4.8); Lymphocytes % (A) 21 %; MCH 31.5 pg (25.0-35.0); MCV 92.5 fL (80.0-100.0); Mean Platelet Volume 8.5; Monocytes # (A) 0.6 k/uL (0-1.0); Monocytes % (A) 7 %; Neutrophils % (A) 65 %; RBC 3.74 m/uL (4.30-5.90); RDW 12.7 % (11.5-15.5); WBC 7.8 k/uL (3.8-10.6); WBC (Perox) 8.22
[2016-12-28] MEDS: IPRATROPIUM-ALBUTEROL 3 ML NEB INHALATION SCH ×4 (07:59→19:42)
[2016-12-28] MEDS: ATORVASTATIN 40 MG TAB PO SCH (08:30)
[2016-12-28] MEDS: CLOPIDOGREL 75 MG TAB PO SCH (08:30)
[2016-12-28] MEDS: ASPIRIN 325 MG TAB PO SCH (08:30)
[2016-12-28] MEDS: LISINOPRIL 10 MG TAB PO SCH (08:30)
[2016-12-28] MEDS: METOPROLOL TARTRATE 25 MG TAB PO SCH ×2 (08:30→20:44)
[2016-12-28] MEDS: HEPARIN SODIUM,PORCINE 5,000 UNIT/ML 1 ML VIAL SQ SCH ×3 (08:30→20:52)
[2016-12-28] MEDS: AMIODARONE 450 MG in DEXTROSE 5% IN WATER 250 ML IV SCH ×6 (08:31→22:16)
[2016-12-28 11:25] LABS: Glucose,Whole Blood 117 mg/dL (75-99)
--- NOTE | 2016-12-28 14:15 | P.PN ---
Subjective Principal diagnosis: Status post CABG 76-year-old male patient underwent three-vessel bypass surgery and the patient was brought into the intensive care unit and a critically care management consultation was placed. The patient is currently sedated with Diprivan at 50 mics. His intubated on a mechanical ventilator at a rate of 12, tidal volume 550, FiO2 initiate 100% currently is down to 50% and a PEEP of 5. Post surgical chest x-ray shows adequate expansion of both lungs, ET tube is in a good location, there is a mediastinal and the left pleural chest tube, Olla- Stephan catheter in place and NG tube is in place. Hemodynamically, the patient has a PA pressure of 35/20 with a cardiac index of 2.3. The patient is on a clevidipine drip at the rate of 6 mg an hour and the patient is also on nitroglycerin at 25 mcg/m. He is producing adequate amount of urine output. Output from the chest tube is minimal and the total amount of output from the chest tube since his arrival is 100. He is sedated with Diprivan at 50 mics. His an alcoholic. He drinks alcohol on a daily basis and drinks shock. The patient is also on an insulin drip for blood sugar control. No other significant events postop. He is a ex-smoker. No reported history of COPD. On the patient is being seen in follow-up. The patient was seen immediately postoperative and following that the patient was gradually weaned off the mechanical ventilator and he was extubated blood any major difficulties. This morning, the patient is on 4 L of oxygen by nasal cannula and his FiO2 is being gradually weaned off. He is postop day #1. His chest x- ray shows postsurgical changes with atelectatic changes in lung bases and small effusions. Chest tubes are in good location. Output from the chest tubes had been around 10-15 mL on an hourly basis. Hemodynamically, the patient is hypertensive and he is still on a clevidipine drip for blood pressure control and currently is on 6 mg an hour. He is producing adequate amount of urine output. He is using incentive spirometer. Is awake and alert and following commands and answering questions appropriately. Olla-Stephan catheter in place and this will be hopefully taken off after consulting with cardiothoracic surgery. He is doing aggressive pulmonary toileting. He has a hemoglobin of 13.6. Renal function is stable. No other significant events over the past 24 hours. On 12/26/2016, the patient is doing well and he is being seen in follow-up in the intensive care unit. He has done extremely well during surgery and the patient is postop day #2. Chest tubes have been REMOVED TODAY AND THE PATIENT IS ON FEW LITERS OF OXYGEN NASAL CANNULA. HEMODYNAMICALLY STABLE. BLOOD PRESSURE IS UNDER GOOD CONTROL. HE IS PRODUCING ADEQUATE AMOUNT OF URINE OUTPUT. HE IS USING INCENTIVE SPIROMETER. SURGICAL WOUND SITE AT ALL DRY CLEAN AND INTACT. On 12/27/2016, patient is doing well, he is basically asymptomatic, and his postoperative day #3. Globin today is 11.5 electrolytes are normal, renal profile is relatively normal. On 12/20/2016, patient continues to do well, his post operative day #4. Hemoglobin today is 11.8, electrolytes and renal profile are normal. WBC count is 7.8. His last chest x-ray was on 12/27, overall the patient is doing well. And he could be discharged home probably in the next 24 hours. Objective - Vital Signs Vital signs: Vital Signs Temp 97.7 F 12/28/16 04:00 Pulse 85 12/28/16 12:00 Resp 16 12/28/16 12:00 BP 130/68 12/28/16 12:00 Pulse Ox 98 12/28/16 08:02 Intake & Output 12/27/16 12/28/16 12/28/16 18:59 06:59 18:59 Intake Total 730 680 560 Output Total 200 625 300 Balance 530 55 260 Weight 84.8 kg Intake: Oral 730 680 560 Output: Urine 200 625 300 Other: Voiding Method Urinal Urinal Urinal # Voids 1 ABP, PAP, CO, CI - Last Documented Arterial Blood Pressure 110/43 Pulmonary Artery Pressure 27/12 Cardiac Output 5.1 Cardiac Index 2.5 - Exam Physical Exam: Revealed a 76-year-old white male in no distress. HEENT:[Neck is supple.] [No neck masses.] [No thyromegaly.] [No JVD.] Chest: [Clear throughout, no crackles, no rhonchi, no wheezes.] Cardiac Exam: [Normal S1 and S2, no S3 gallop, no murmur.] Abdomen: [Soft, nontender, no megaly, no rebound, no guarding, normal bowel sounds.] Extremities: [No clubbing, no edema, no cyanosis.] Neurological Exam: [No focal neurologic deficit.] - Labs CBC & Chem 7: 12/28/16 06:01 12/28/16 06:01 Labs: Abnormal Lab Results - Last 24 Hours (Table) 12/27/16 12/27/16 12/28/16 Range/Units 16:11 21:03 02:31 RBC (4.30-5.90) m/uL Hgb (13.0-17.5) gm/dL Hct (39.0-53.0) % POC Glucose (mg/dL) 125 H 143 H 106 H (75-99) mg/dL Total Protein (6.3-8.2) g/dL Albumin (3.5-5.0) g/dL 12/28/16 12/28/16 12/28/16 Range/Units 06:01 06:01 11:22 RBC 3.74 L (4.30-5.90) m/uL Hgb 11.8 L (13.0-17.5) gm/dL Hct 34.6 L (39.0-53.0) % POC Glucose (mg/dL) 117 H (75-99) mg/dL Total Protein 5.7 L (6.3-8.2) g/dL Albumin 3.1 L (3.5-5.0) g/dL Assessment and Plan Plan: 1 multivessel coronary artery disease and the patient is post three-vessel bypass surgery, postop day # 4 2 post thoracotomy Status and the patient was extubated without any major difficulties. Currently on high flow oxygen which is being gradually weaned off. Chest tubes are all in place. No major respiratory difficulties. Today' s chest x-ray showing postsurgical changes. On 12/26/2016 the patient is doing extremely well. All of the chest tubes have been removed and the patient's chest x-ray shows some limited atelectatic changes in lung bases bilaterally be given a dose of Lasix. On 12/27/2016, patient continues to do well, relatively asymptomatic, and progressing quite nicely. On 12/28/2016, continues to do well, discharge planning is likely in progress. 3 stable hemodynamics 4 postoperative hypertension, recovered 5 alcoholism Recommendation: Continue incentive spirometry, ambulate, chest x-ray showed minimal bibasilar atelectasis which will improve with incentive spirometry and bronchodilators. As well as ambulation. Cleared by pulmonary for possible discharge planning in the next 24 hours. Time with Patient: Less than 30
--- NOTE | 2016-12-28 14:52 | P.PN ---
Subjective Principal diagnosis: Coronary artery disease POD #4 off pump CABG 3 with ISIDRO to LAD and SVG sequentially to diagonal 1 and diagonal 2, endovascular vein harvest of the right greater saphenous vein Patient currently sitting up in chair in no apparent distress. Denies pain. Eating breakfast. Objective - Vital Signs Vital signs: Vital Signs Temp 97.7 F 12/28/16 04:00 Pulse 90 12/28/16 08:02 Resp 18 12/28/16 04:00 BP 153/83 12/28/16 04:00 Pulse Ox 98 12/28/16 08:02 Intake & Output 12/27/16 12/28/16 12/28/16 18:59 06:59 18:59 Intake Total 730 680 Output Total 200 625 Balance 530 55 Weight 84.8 kg Intake: Oral 730 680 Output: Urine 200 625 Other: Voiding Method Urinal Urinal # Voids 1 ABP, PAP, CO, CI - Last Documented Arterial Blood Pressure 110/43 Pulmonary Artery Pressure 27/12 Cardiac Output 5.1 Cardiac Index 2.5 - Constitutional General appearance: Present: cooperative, no acute distress - Respiratory Details: Lungs sounds diminished with fine crackles in the bases bilaterally. Respirations even, nonlabored. Currently on 2 L nasal cannula. Able to achieve 1000 mL on his incentive spirometry. - Cardiovascular Details: S1, S2 present. Regular rate and rhythm, normal sinus rhythm on telemetry. Patient has had brief episodes of rapid A. fib flutter which abates without intervention. Chest stable. Heart hugger in place with patient demonstrating appropriate use. Teds, SCDs present. Trace bilateral lower extremity edema present. - Gastrointestinal Gastrointestinal Comment(s): Abdomen soft, nontender, nondistended. Bowel sounds active 4 quadrants. Bowel movement this morning. Tolerating diet. - Genitourinary Genitourinary Comment(s): Continues to void clear, yellow urine per urinal. - Integumentary Integumentary Comment(s): Anterior chest incision covered with dry intact silver dressing. Right lower extremity EVH site well approximated. - Musculoskeletal Musculoskeletal: Present: gait normal - Psychiatric Psychiatric: Present: A&O x's 3, appropriate affect, intact judgment & insight - Allied health notes Allied health notes reviewed: case management - Labs CBC & Chem 7: 12/28/16 06:01 12/28/16 06:01 Labs: Abnormal Lab Results - Last 24 Hours (Table) 12/24/16 12/24/16 12/24/16 Range/Units 11:46 12:40 13:05 RBC (4.30-5.90) m/uL Hgb (13.0-17.5) gm/dL Hct (39.0-53.0) % ABG pH 7.47 H (7.35-7.45) ABG pCO2 32 L 34 L 33 L (35-45) mmHg ABG pO2 204 H 117 H (83-108) mmHg ABG O2 Saturation 99.8 H 98.8 H 98.2 H (94-97) % POC Glucose (mg/dL) (75-99) mg/dL Total Protein (6.3-8.2) g/dL Albumin (3.5-5.0) g/dL 12/27/16 12/27/16 12/28/16 Range/Units 16:11 21:03 02:31 RBC (4.30-5.90) m/uL Hgb (13.0-17.5) gm/dL Hct (39.0-53.0) % ABG pH (7.35-7.45) ABG pCO2 (35-45) mmHg ABG pO2 (83-108) mmHg ABG O2 Saturation (94-97) % POC Glucose (mg/dL) 125 H 143 H 106 H (75-99) mg/dL Total Protein (6.3-8.2) g/dL Albumin (3.5-5.0) g/dL 12/28/16 12/28/16 Range/Units 06:01 06:01 RBC 3.74 L (4.30-5.90) m/uL Hgb 11.8 L (13.0-17.5) gm/dL Hct 34.6 L (39.0-53.0) % ABG pH (7.35-7.45) ABG pCO2 (35-45) mmHg ABG pO2 (83-108) mmHg ABG O2 Saturation (94-97) % POC Glucose (mg/dL) (75-99) mg/dL Total Protein 5.7 L (6.3-8.2) g/dL Albumin 3.1 L (3.5-5.0) g/dL Assessment and Plan (1) Coronary artery disease Status: Acute (2) Hypertension Status: Acute (3) Hyperlipidemia Status: Acute (4) History of stroke Status: Acute Plan: 1. Continue aspirin, statin, Plavix, Mani, beta eric. 2. Wean O2 as tolerated. Encourage incentive spirometry use. 3. Increase activity, ambulate in hallway. PT to follow. 4. GI/DVT prophylaxis. 5. Discussed bursts of paroxysmal rapid atrial flutter with cardiology. Appreciate recommendations. 6. Case management following for discharge plans, patient will need rehab secondary to no home support. 7. Anticipate discharge soon Time with Patient: Greater than 30
--- NOTE | 2016-12-28 15:10 | P.PN ---
Subjective Principal diagnosis: CABG This is a 76-year-old gentleman who is status post coronary artery bypass grafting surgery, he was seen and examined this morning. Doing well overall. Denies any shortness of breath or chest discomfort. Having intermittent episodes of atrial flutter with rapid ventricular response. Today has been remaining in normal sinus rhythm. He was initiated on IV amiodarone through the night last night. If the patient has any further episodes of atrial fibrillation/flutter we will initiate anticoagulation. Objective - Vital Signs Vital signs: Vital Signs Temp 97.7 F 12/28/16 04:00 Pulse 85 12/28/16 12:00 Resp 16 12/28/16 12:00 BP 130/68 12/28/16 12:00 Pulse Ox 98 12/28/16 08:02 Intake & Output 12/27/16 12/28/16 12/28/16 18:59 06:59 18:59 Intake Total 730 680 560 Output Total 200 625 300 Balance 530 55 260 Weight 84.8 kg Intake: Oral 730 680 560 Output: Urine 200 625 300 Other: Voiding Method Urinal Urinal Urinal # Voids 1 ABP, PAP, CO, CI - Last Documented Arterial Blood Pressure 110/43 Pulmonary Artery Pressure 27/12 Cardiac Output 5.1 Cardiac Index 2.5 - Exam PHYSICAL EXAMINATION: HEENT: Head is atraumatic, normocephalic. Pupils equal, round. Neck is supple. There is no elevated jugular venous pressure. HEART EXAMINATION: Heart S1, S2 normal. No murmur or gallop heard. CHEST EXAMINATION: Lungs reveal diminished air entry to bilateral bases. ] ABDOMEN: Soft, nontender. Bowel sounds are heard. No organomegaly noted. EXTREMITIES: 2+ peripheral pulses with trace evidence of peripheral edema and no calf tenderness noted. NEUROLOGIC patient is awake, alert and oriented -3. . - Labs CBC & Chem 7: 12/28/16 06:01 12/28/16 06:01 Labs: Abnormal Lab Results - Last 24 Hours (Table) 12/27/16 12/27/16 12/28/16 Range/Units 16:11 21:03 02:31 RBC (4.30-5.90) m/uL Hgb (13.0-17.5) gm/dL Hct (39.0-53.0) % POC Glucose (mg/dL) 125 H 143 H 106 H (75-99) mg/dL Total Protein (6.3-8.2) g/dL Albumin (3.5-5.0) g/dL 12/28/16 12/28/16 12/28/16 Range/Units 06:01 06:01 11:22 RBC 3.74 L (4.30-5.90) m/uL Hgb 11.8 L (13.0-17.5) gm/dL Hct 34.6 L (39.0-53.0) % POC Glucose (mg/dL) 117 H (75-99) mg/dL Total Protein 5.7 L (6.3-8.2) g/dL Albumin 3.1 L (3.5-5.0) g/dL Assessment and Plan Plan: Assessment and plan #1 status post coronary artery bypass grafting surgery #2 hypertension #3 EtOH abuse #4 hyperlipidemia # 5 paroxysmal atrial fibrillation/flutter Plan Patient was initiated on IV amiodarone through the night last night. We will continue the IV amiodarone for 24 hours, then initiate oral amiodarone. If the patient has any further episodes of atrial fibrillation, at that time anticoagulation will be initiated. DNP note has been reviewed, I agree with a documented findings and plan of care. Patient was seen and examined.
[2016-12-28 16:57] LABS: Glucose,Whole Blood 107 mg/dL (75-99)
[2016-12-28 20:41] LABS: Glucose,Whole Blood 146 mg/dL (75-99)
[2016-12-28] MEDS: SENNOSIDES-DOCUSATE SODIUM 1 EACH TAB PO SCH (20:52)
--- NOTE | 2016-12-28 21:16 | P.PN ---
Subjective Date of service 12/28/2016. Progress note being dictated for Dr. Bolaños. Interval history: This a 76-year-old gentleman admitted with multivessel CAD, status post CABG and multiple other medical issues. Earlier developed proximal runs of atrial flutter with RVR, amiodarone drip initiated. Telemetry currently sinus rhythm. Blood sugars controlled ranging from 90s to 140s. Good diet intake, no nausea or vomiting. Denies chest pain, palpitations or increasing shortness of breath. Afebrile, T-max 100.4. Objective - Vital Signs Vital signs: Vital Signs Temp 97.7 F 12/28/16 04:00 Pulse 85 12/28/16 12:00 Resp 16 12/28/16 12:00 BP 130/68 12/28/16 12:00 Pulse Ox 98 12/28/16 08:02 Intake & Output 12/27/16 12/28/16 12/28/16 18:59 06:59 18:59 Intake Total 730 680 819.00 Output Total 200 625 600 Balance 530 55 219.00 Weight 84.8 kg Intake: Intake, IV Titration 259.00 Amount Amiodarone 450 mg In 259.00 Dextrose 5% in Water 250 ml @ 1 MG/MIN 34.53 mls/ hr IV .Q7H31M [facility] Rx#: [id number] Oral 730 680 560 Output: Urine 200 625 600 Other: Voiding Method Urinal Urinal Urinal # Voids 1 ABP, PAP, CO, CI - Last Documented Arterial Blood Pressure 110/43 Pulmonary Artery Pressure 27/12 Cardiac Output 5.1 Cardiac Index 2.5 - Exam PHYSICAL EXAM: VITAL SIGNS: As above GENERAL: [Sitting up in bed, no acute distress] HEENT: [Pupils equal conjunctiva normal.] NECK: [Supple, no JVD] RESPIRATORY EFFORT:[Normal] LUNGS: [Diminished, no crackles wheezes or rhonchi] CARDIOVASCULAR[regular S1 and S2, no murmurs rubs or gallops, trace edema] GI: [Abdomen soft, nontender, positive bowel sounds.] PSYCH: [Alert and oriented -3, mood and affect normal.] NEURO: No focal deficits, moves all 4 extremities, strength and sensation intact - Labs CBC & Chem 7: 12/28/16 06:01 12/28/16 06:01 Labs: Abnormal Lab Results - Last 24 Hours (Table) 12/27/16 12/28/16 12/28/16 Range/Units 21:03 02:31 06:01 RBC 3.74 L (4.30-5.90) m/uL Hgb 11.8 L (13.0-17.5) gm/dL Hct 34.6 L (39.0-53.0) % POC Glucose (mg/dL) 143 H 106 H (75-99) mg/dL Total Protein (6.3-8.2) g/dL Albumin (3.5-5.0) g/dL 12/28/16 12/28/16 12/28/16 Range/Units 06:01 11:22 16:55 RBC (4.30-5.90) m/uL Hgb (13.0-17.5) gm/dL Hct (39.0-53.0) % POC Glucose (mg/dL) 117 H 107 H (75-99) mg/dL Total Protein 5.7 L (6.3-8.2) g/dL Albumin 3.1 L (3.5-5.0) g/dL Assessment and Plan Plan: 1. Multivessel CAD, status post CABG. 2. [Hypertension]. 3. [Hyperlipidemia]. 4. [Bibasilar atelectasis, minimal]. 5. Paroxysmal atrial flutter with RVR, currently on amiodarone drip. Plan: Continue on current medication regime , nebulized bronchodilators, aspirin , Plavix, beta eric, SARAI inhibitor, statin, amiodarone, monitoring and symptomatic treatment. Aggressive pulmonary toileting, with IS encouraged and reinstructed on. Increase ambulation as tolerated. Patient declined physical therapy today , PT evaluation pending. Close monitoring of Accu-Cheks. Further recommendations to follow. The impression and plan of care has been dictated as directed. : I performed a H&P examination of this patient and discussed the same with the dictator. I agree with the dictator's note. Any additional findings/opinions/ etc. will be noted.
[2016-12-28] MEDS: HYDROcodone/APAP 5-325MG 1 EACH TAB PO PRN (22:51)
[2016-12-29 02:26] VITALS: RESP 18
[2016-12-29] MEDS: AMIODARONE 450 MG in DEXTROSE 5% IN WATER 250 ML IV SCH ×2 (06:18)
[2016-12-29 06:33] LABS: Glucose,Whole Blood 105 mg/dL (75-99)
[2016-12-29] MEDS ORDERED: TERBUTALINE 1 MG/ML VIAL SQ ONE ×2 (06:34→06:38)
[2016-12-29] MEDS: PANTOPRAZOLE 40 MG TABLET PO SCH (06:39)
[2016-12-29 07:00] LABS: ALT 107 U/L (21-72); AST 109 U/L (17-59); Alkaline Phosphatase 52 U/L (38-126); Anion Gap 11 mmol/L; Blood Urea Nitrogen 15 mg/dL (9-20); Calcium 8.2 mg/dL (8.4-10.2); Carbon Dioxide 24 mmol/L (22-30); Chloride 106 mmol/L (98-107); Glucose 102 mg/dL (74-99); Non-African American GFR(MDRD) >60 (>60 ml/min/1.73 sqM); Potassium 4.2 mmol/L (3.5-5.1); Sodium 141 mmol/L (137-145); Total Bilirubin 0.9 mg/dL (0.2-1.3); Total Protein 5.4 g/dL (6.3-8.2)
[2016-12-29] MEDS: INSULIN LISPRO (humaLOG) 300 UNIT/3 ML VIAL SQ SCH ×4 (07:32→20:42)
[2016-12-29 07:51] LABS: Basophils % (A) 0 %; CH 30.9; CHCM 33.5; Eosinophils # (A) 0.3 k/uL (0-0.7); Eosinophils % (A) 5 %; HCT 33.7 % (39.0-53.0); HDW 2.59; HGB 11.4 gm/dL (13.0-17.5); Luc % (Auto) 3; Lymphocytes # (A) 1.4 k/uL (1.0-4.8); Lymphocytes % (A) 21 %; MCH 31.2 pg (25.0-35.0); MCHC 33.7 g/dL (31.0-37.0); MCV 92.5 fL (80.0-100.0); Mean Platelet Volume 7.9; Monocytes # (A) 0.5 k/uL (0-1.0); Monocytes % (A) 8 %; Neutrophils # (A) 4.1 k/uL (1.3-7.7); Neutrophils % (A) 63 %; RBC 3.65 m/uL (4.30-5.90); RDW 12.6 % (11.5-15.5); WBC 6.5 k/uL (3.8-10.6); WBC (Perox) 6.97
--- NOTE | 2016-12-29 08:04 | P.PN ---
Subjective Principal diagnosis: Coronary artery disease POD #5 off pump CABG 3 with ISIDRO to LAD and SVG sequentially to diagonal 1 and diagonal 2, endovascular vein harvest of the right greater saphenous vein Patient currently sitting up in chair in no apparent distress. Denies pain. Eating breakfast. Objective - Vital Signs Vital signs: Vital Signs Temp 100.7 F H 12/29/16 04:00 Pulse 80 12/29/16 04:00 Resp 18 12/29/16 04:00 BP 140/75 12/29/16 04:00 Pulse Ox 92 L 12/29/16 04:00 Intake & Output 12/28/16 12/29/16 12/29/16 18:59 06:59 18:59 Intake Total 819.00 753.203 Output Total 1175 450 Balance -356.00 303.203 Weight 84.5 kg Intake: IV 160 0.9 160 Intake, IV Titration 259.00 343.203 Amount Amiodarone 450 mg In 259.00 77.603 Dextrose 5% in Water 250 ml @ 1 MG/MIN 34.53 mls/ hr IV .Q7H31M [facility] Rx#: [id number] Dextrose 5% in Water 100 265.6 ml @ 618 mls/hr IV .Q10M ONE with Amiodarone 150 mg Rx#:[id number] Oral 560 250 Output: Urine 1175 450 Other: Voiding Method Urinal Urinal # Voids 1 ABP, PAP, CO, CI - Last Documented Arterial Blood Pressure 110/43 Pulmonary Artery Pressure 27/12 Cardiac Output 5.1 Cardiac Index 2.5 - Constitutional General appearance: Present: cooperative, no acute distress - Respiratory Details: The minutes bilaterally. Respirations even, nonlabored. Remains on room air. Able to achieve 1250 mL on his incentive spirometry. - Cardiovascular Details: S1, S2 present. Regular rate and rhythm normal sinus rhythm on telemetry. No episodes of atrial fib ablation/flutter overnight. Chest stable. Heart hugger in place with patient demonstrating appropriate use. No edema present. SCDs, teds in place. - Gastrointestinal Gastrointestinal Comment(s): Abdomen soft, nontender, nondistended. Active bowel sounds 4 quadrants. Tolerating diet. - Genitourinary Genitourinary Comment(s): Continues to void clear, yellow urine per urinal. - Integumentary Integumentary Comment(s): Anterior chest wall incision covered with dry intact silver dressing. Right lower extremity EVH site well approximated. - Musculoskeletal Musculoskeletal: Present: gait normal - Psychiatric Psychiatric: Present: A&O x's 3, appropriate affect, intact judgment & insight - Allied health notes Allied health notes reviewed: nursing - Labs CBC & Chem 7: 12/29/16 05:59 12/29/16 05:59 Labs: Abnormal Lab Results - Last 24 Hours (Table) 12/28/16 12/28/16 12/28/16 Range/Units 11:22 16:55 20:39 RBC (4.30-5.90) m/uL Hgb (13.0-17.5) gm/dL Hct (39.0-53.0) % Glucose (74-99) mg/dL POC Glucose (mg/dL) 117 H 107 H 146 H (75-99) mg/dL Calcium (8.4-10.2) mg/dL AST (17-59) U/L ALT (21-72) U/L Total Protein (6.3-8.2) g/dL Albumin (3.5-5.0) g/dL 12/29/16 12/29/16 12/29/16 Range/Units 05:59 05:59 06:32 RBC 3.65 L (4.30-5.90) m/uL Hgb 11.4 L (13.0-17.5) gm/dL Hct 33.7 L (39.0-53.0) % Glucose 102 H (74-99) mg/dL POC Glucose (mg/dL) 105 H (75-99) mg/dL Calcium 8.2 L (8.4-10.2) mg/dL AST 109 H (17-59) U/L ALT 107 H (21-72) U/L Total Protein 5.4 L (6.3-8.2) g/dL Albumin 2.9 L (3.5-5.0) g/dL Assessment and Plan (1) Coronary artery disease Status: Acute (2) Hypertension Status: Acute (3) Hyperlipidemia Status: Acute (4) History of stroke Status: Acute Plan: 1. Continue aspirin, Plavix, Mani. Will hold statin for now secondary to elevated AST/ALT. We will restart one liver enzymes normalize. 2. Amiodarone ip DC'd. Will increase Lopressor to 50mg twice a day. 3. Low grade temp overnight, felt to be secondary to atelectasis. Continue to encourage incentive spirometry use. 4. Increase activity, ambulate in hallway. PT following. 5. GI/DVT prophylaxis. 6. Case management following for discharge plans, patient will need rehab secondary to no home support. 7. Anticipate discharge to rehab tomorrow. Time with Patient: Greater than 30
[2016-12-29] MEDS: HEPARIN SODIUM,PORCINE 5,000 UNIT/ML 1 ML VIAL SQ SCH ×2 (09:13→17:35)
[2016-12-29] MEDS: ASPIRIN 325 MG TAB PO SCH (09:14)
[2016-12-29] MEDS: LISINOPRIL 10 MG TAB PO SCH (09:14)
[2016-12-29] MEDS: METOPROLOL TARTRATE 50 MG TAB PO SCH ×2 (09:14→20:51)
[2016-12-29] MEDS: CLOPIDOGREL 75 MG TAB PO SCH (09:14)
[2016-12-29] MEDS: IPRATROPIUM-ALBUTEROL 3 ML NEB INHALATION SCH ×4 (11:02→19:46)
--- NOTE | 2016-12-29 11:02 | P.PN ---
Subjective Date of service 12/29/2016. Progress note being dictated for Dr. Bolaños. Interval history: This a 76-year-old gentleman admitted with multivessel CAD, status post CABG and multiple other medical issues. Amiodarone drip discontinued, no oral amiodarone as LFTs elevated. Beta eric dose increased. Telemetry remains sinus rhythm. Yesterday good diet intake, this morning consumed only 25% of breakfast. Denies nausea or vomiting .Blood sugars controlled. Denies chest pain, palpitations or increasing shortness of breath. Afebrile, T-max 100.7, normal WBC. Objective - Vital Signs Vital signs: Vital Signs Temp 100.3 F H 12/29/16 08:00 Pulse 103 H 12/29/16 08:00 Resp 18 12/29/16 04:00 BP 122/62 12/29/16 08:00 Pulse Ox 93 L 12/29/16 08:00 Intake & Output 12/28/16 12/29/16 12/29/16 18:59 06:59 18:59 Intake Total 819.00 753.203 180 Output Total 1175 450 Balance -356.00 303.203 180 Weight 84.5 kg Intake: IV 160 0.9 160 Intake, IV Titration 259.00 343.203 Amount Amiodarone 450 mg In 259.00 77.603 Dextrose 5% in Water 250 ml @ 1 MG/MIN 34.53 mls/ hr IV .Q7H31M [facility] Rx#: [id number] Dextrose 5% in Water 100 265.6 ml @ 618 mls/hr IV .Q10M ONE with Amiodarone 150 mg Rx#:[id number] Oral 560 250 180 Output: Urine 1175 450 Other: Voiding Method Urinal Urinal # Voids 1 ABP, PAP, CO, CI - Last Documented Arterial Blood Pressure 110/43 Pulmonary Artery Pressure 27/12 Cardiac Output 5.1 Cardiac Index 2.5 - Exam PHYSICAL EXAM: VITAL SIGNS: As above GENERAL: [Sitting up in bed, no acute distress] HEENT: [Pupils equal conjunctiva normal.] NECK: [Supple, no JVD] RESPIRATORY EFFORT:[Normal] LUNGS: [Diminished, no crackles wheezes or rhonchi] CARDIOVASCULAR[regular S1 and S2, no murmurs rubs or gallops, no edema] GI: [Abdomen soft, nontender, positive bowel sounds.] PSYCH: [Alert and oriented -3, mood and affect normal.] NEURO: No focal deficits, moves all 4 extremities, strength and sensation intact - Labs CBC & Chem 7: 12/29/16 05:59 12/29/16 05:59 Labs: Abnormal Lab Results - Last 24 Hours (Table) 12/28/16 12/28/16 12/28/16 Range/Units 11:22 16:55 20:39 RBC (4.30-5.90) m/uL Hgb (13.0-17.5) gm/dL Hct (39.0-53.0) % Glucose (74-99) mg/dL POC Glucose (mg/dL) 117 H 107 H 146 H (75-99) mg/dL Calcium (8.4-10.2) mg/dL AST (17-59) U/L ALT (21-72) U/L Total Protein (6.3-8.2) g/dL Albumin (3.5-5.0) g/dL 12/29/16 12/29/16 12/29/16 Range/Units 05:59 05:59 06:32 RBC 3.65 L (4.30-5.90) m/uL Hgb 11.4 L (13.0-17.5) gm/dL Hct 33.7 L (39.0-53.0) % Glucose 102 H (74-99) mg/dL POC Glucose (mg/dL) 105 H (75-99) mg/dL Calcium 8.2 L (8.4-10.2) mg/dL AST 109 H (17-59) U/L ALT 107 H (21-72) U/L Total Protein 5.4 L (6.3-8.2) g/dL Albumin 2.9 L (3.5-5.0) g/dL Assessment and Plan Plan: 1. Multivessel CAD, status post CABG. 2. [Hypertension]. 3. [Hyperlipidemia]. 4. [Bibasilar atelectasis 5. Paroxysmal atrial flutter with RVR, status post amiodarone drip. 6. Elevated LFTs secondary to amiodarone amiodarone Plan: Continue on current medication regime , nebulized bronchodilators, aspirin , Plavix, beta eric, SARAI inhibitor, monitoring and symptomatic treatment. Given increase in LFTs statin has also been placed on hold. Continue with aggressive pulmonary toileting, IS. Increase ambulation as tolerated. PT evaluation pending. Close monitoring of Accu-Cheks. Further recommendations to follow. The impression and plan of care has been dictated as directed. : I performed a H&P examination of this patient and discussed the same with the dictator. I agree with the dictator's note. Any additional findings/opinions/ etc. will be noted.
[2016-12-29 11:49] LABS: Glucose,Whole Blood 111 mg/dL (75-99)
[2016-12-29] MEDS: THIAMINE 100 MG TAB PO SCH (12:58)
[2016-12-29] MEDS: MULTIVITAMINS, THERA 1 EACH TAB PO SCH (12:58)
[2016-12-29] MEDS: FOLIC ACID 1 MG TAB PO SCH (12:59)
--- NOTE | 2016-12-29 13:36 | P.PN ---
Subjective Principal diagnosis: Status post CABG 76-year-old male patient underwent three-vessel bypass surgery and the patient was brought into the intensive care unit and a critically care management consultation was placed. The patient is currently sedated with Diprivan at 50 mics. His intubated on a mechanical ventilator at a rate of 12, tidal volume 550, FiO2 initiate 100% currently is down to 50% and a PEEP of 5. Post surgical chest x-ray shows adequate expansion of both lungs, ET tube is in a good location, there is a mediastinal and the left pleural chest tube, Harrison- Stephan catheter in place and NG tube is in place. Hemodynamically, the patient has a PA pressure of 35/20 with a cardiac index of 2.3. The patient is on a clevidipine drip at the rate of 6 mg an hour and the patient is also on nitroglycerin at 25 mcg/m. He is producing adequate amount of urine output. Output from the chest tube is minimal and the total amount of output from the chest tube since his arrival is 100. He is sedated with Diprivan at 50 mics. His an alcoholic. He drinks alcohol on a daily basis and drinks shock. The patient is also on an insulin drip for blood sugar control. No other significant events postop. He is a ex-smoker. No reported history of COPD. On the patient is being seen in follow-up. The patient was seen immediately postoperative and following that the patient was gradually weaned off the mechanical ventilator and he was extubated blood any major difficulties. This morning, the patient is on 4 L of oxygen by nasal cannula and his FiO2 is being gradually weaned off. He is postop day #1. His chest x- ray shows postsurgical changes with atelectatic changes in lung bases and small effusions. Chest tubes are in good location. Output from the chest tubes had been around 10-15 mL on an hourly basis. Hemodynamically, the patient is hypertensive and he is still on a clevidipine drip for blood pressure control and currently is on 6 mg an hour. He is producing adequate amount of urine output. He is using incentive spirometer. Is awake and alert and following commands and answering questions appropriately. Harrison-Stephan catheter in place and this will be hopefully taken off after consulting with cardiothoracic surgery. He is doing aggressive pulmonary toileting. He has a hemoglobin of 13.6. Renal function is stable. No other significant events over the past 24 hours. On 12/26/2016, the patient is doing well and he is being seen in follow-up in the intensive care unit. He has done extremely well during surgery and the patient is postop day #2. Chest tubes have been REMOVED TODAY AND THE PATIENT IS ON FEW LITERS OF OXYGEN NASAL CANNULA. HEMODYNAMICALLY STABLE. BLOOD PRESSURE IS UNDER GOOD CONTROL. HE IS PRODUCING ADEQUATE AMOUNT OF URINE OUTPUT. HE IS USING INCENTIVE SPIROMETER. SURGICAL WOUND SITE AT ALL DRY CLEAN AND INTACT. On 12/27/2016, patient is doing well, he is basically asymptomatic, and his postoperative day #3. Globin today is 11.5 electrolytes are normal, renal profile is relatively normal. On 12/28/2016, patient continues to do well, his post operative day #4. Hemoglobin today is 11.8, electrolytes and renal profile are normal. WBC count is 7.8. His last chest x-ray was on 12/27, overall the patient is doing well. And he could be discharged home probably in the next 24 hours. On follow-up on 12/29/2016, patient continues to do well, his postoperative day # 5. He had off-pump CABG 3 with ISIDRO to LAD SVG sequential to diagonal 1 and diagonal 2. Overall postoperative course has been uneventful, patient is doing well clinically, and could be considered for discharge planning soon. Objective - Vital Signs Vital signs: Vital Signs Temp 100.3 F H 12/29/16 08:00 Pulse 80 12/29/16 11:14 Resp 18 12/29/16 04:00 BP 122/62 12/29/16 08:00 Pulse Ox 93 L 12/29/16 08:00 Intake & Output 12/28/16 12/29/16 12/29/16 18:59 06:59 18:59 Intake Total 819.00 753.203 380 Output Total 1175 450 Balance -356.00 303.203 380 Weight 84.5 kg Intake: IV 160 0.9 160 Intake, IV Titration 259.00 343.203 Amount Amiodarone 450 mg In 259.00 77.603 Dextrose 5% in Water 250 ml @ 1 MG/MIN 34.53 mls/ hr IV .Q7H31M [facility] Rx#: [id number] Dextrose 5% in Water 100 265.6 ml @ 618 mls/hr IV .Q10M ONE with Amiodarone 150 mg Rx#:[id number] Oral 560 250 380 Output: Urine 1175 450 Other: Voiding Method Urinal Urinal # Voids 1 ABP, PAP, CO, CI - Last Documented Arterial Blood Pressure 110/43 Pulmonary Artery Pressure 27/12 Cardiac Output 5.1 Cardiac Index 2.5 - Exam Physical Exam: Revealed a 76-year-old white male in no distress. HEENT:[Neck is supple.] [No neck masses.] [No thyromegaly.] [No JVD.] Chest: [Clear throughout, no crackles, no rhonchi, no wheezes.] Cardiac Exam: [Normal S1 and S2, no S3 gallop, no murmur.] Abdomen: [Soft, nontender, no megaly, no rebound, no guarding, normal bowel sounds.] Extremities: [No clubbing, no edema, no cyanosis.] Neurological Exam: [No focal neurologic deficit.] - Labs CBC & Chem 7: 12/29/16 05:59 12/29/16 05:59 Labs: Abnormal Lab Results - Last 24 Hours (Table) 12/28/16 12/28/16 12/29/16 Range/Units 16:55 20:39 05:59 RBC (4.30-5.90) m/uL Hgb (13.0-17.5) gm/dL Hct (39.0-53.0) % Glucose 102 H (74-99) mg/dL POC Glucose (mg/dL) 107 H 146 H (75-99) mg/dL Calcium 8.2 L (8.4-10.2) mg/dL AST 109 H (17-59) U/L ALT 107 H (21-72) U/L Total Protein 5.4 L (6.3-8.2) g/dL Albumin 2.9 L (3.5-5.0) g/dL 12/29/16 12/29/16 12/29/16 Range/Units 05:59 06:32 11:47 RBC 3.65 L (4.30-5.90) m/uL Hgb 11.4 L (13.0-17.5) gm/dL Hct 33.7 L (39.0-53.0) % Glucose (74-99) mg/dL POC Glucose (mg/dL) 105 H 111 H (75-99) mg/dL Calcium (8.4-10.2) mg/dL AST (17-59) U/L ALT (21-72) U/L Total Protein (6.3-8.2) g/dL Albumin (3.5-5.0) g/dL Assessment and Plan Plan: 1 multivessel coronary artery disease and the patient is post three-vessel bypass surgery, postop day # 5 2 post thoracotomy Status and the patient was extubated without any major difficulties. Currently on high flow oxygen which is being gradually weaned off. Chest tubes are all in place. No major respiratory difficulties. Today' s chest x-ray showing postsurgical changes. On 12/26/2016 the patient is doing extremely well. All of the chest tubes have been removed and the patient's chest x-ray shows some limited atelectatic changes in lung bases bilaterally be given a dose of Lasix. On 12/27/2016, patient continues to do well, relatively asymptomatic, and progressing quite nicely. On 12/28/2016, continues to do well, discharge planning is likely in progress. On 12/29/2016, continues to do well, patient will likely be discharged home in the next 24 hours. 3 stable hemodynamics 4 postoperative hypertension, recovered 5 alcoholism Recommendation: Continue incentive spirometry, ambulate, discharge planning soon. Time with Patient: Less than 30
[2016-12-29 14:41] VITALS: BMI 26.7
--- NOTE | 2016-12-29 15:04 | P.PN ---
Subjective Principal diagnosis: CABG This is a 76-year-old gentleman who is status post coronary artery bypass grafting surgery, he was seen and examined this morning. Doing well overall. Denies any shortness of breath or chest discomfort. Remaining in normal sinus rhythm. AST 109 ALT 107 alk phos 52. Amiodarone has been discontinued because of the elevated liver enzymes. Patient continues to be on Lipitor along with his other medications. Overall doing well. Improving on his I & S. Up walking several times today. Objective - Vital Signs Vital signs: Vital Signs Temp 98.2 F 12/29/16 12:00 Pulse 92 12/29/16 12:00 Resp 18 12/29/16 04:00 BP 128/75 12/29/16 12:00 Pulse Ox 94 L 12/29/16 12:00 Intake & Output 12/28/16 12/29/16 12/29/16 18:59 06:59 18:59 Intake Total 819.00 753.203 380 Output Total 1175 450 Balance -356.00 303.203 380 Weight 84.5 kg 84.5 kg Intake: IV 160 0.9 160 Intake, IV Titration 259.00 343.203 Amount Amiodarone 450 mg In 259.00 77.603 Dextrose 5% in Water 250 ml @ 1 MG/MIN 34.53 mls/ hr IV .Q7H31M [facility] Rx#: [id number] Dextrose 5% in Water 100 265.6 ml @ 618 mls/hr IV .Q10M ONE with Amiodarone 150 mg Rx#:[id number] Oral 560 250 380 Output: Urine 1175 450 Other: Voiding Method Urinal Urinal # Voids 1 ABP, PAP, CO, CI - Last Documented Arterial Blood Pressure 110/43 Pulmonary Artery Pressure 27/12 Cardiac Output 5.1 Cardiac Index 2.5 - Exam PHYSICAL EXAMINATION: HEENT: Head is atraumatic, normocephalic. Pupils equal, round. Neck is supple. There is no elevated jugular venous pressure. HEART EXAMINATION: Heart S1, S2 normal. No murmur or gallop heard. CHEST EXAMINATION: Lungs reveal diminished air entry to bilateral bases. ] ABDOMEN: Soft, nontender. Bowel sounds are heard. No organomegaly noted. EXTREMITIES: 2+ peripheral pulses with trace evidence of peripheral edema and no calf tenderness noted. NEUROLOGIC patient is awake, alert and oriented -3. . - Labs CBC & Chem 7: 12/29/16 05:59 12/29/16 05:59 Labs: Abnormal Lab Results - Last 24 Hours (Table) 12/28/16 12/28/16 12/29/16 Range/Units 16:55 20:39 05:59 RBC (4.30-5.90) m/uL Hgb (13.0-17.5) gm/dL Hct (39.0-53.0) % Glucose 102 H (74-99) mg/dL POC Glucose (mg/dL) 107 H 146 H (75-99) mg/dL Calcium 8.2 L (8.4-10.2) mg/dL AST 109 H (17-59) U/L ALT 107 H (21-72) U/L Total Protein 5.4 L (6.3-8.2) g/dL Albumin 2.9 L (3.5-5.0) g/dL 12/29/16 12/29/16 12/29/16 Range/Units 05:59 06:32 11:47 RBC 3.65 L (4.30-5.90) m/uL Hgb 11.4 L (13.0-17.5) gm/dL Hct 33.7 L (39.0-53.0) % Glucose (74-99) mg/dL POC Glucose (mg/dL) 105 H 111 H (75-99) mg/dL Calcium (8.4-10.2) mg/dL AST (17-59) U/L ALT (21-72) U/L Total Protein (6.3-8.2) g/dL Albumin (3.5-5.0) g/dL Assessment and Plan Plan: Assessment and plan #1 status post coronary artery bypass grafting surgery #2 hypertension #3 EtOH abuse #4 hyperlipidemia # 5 paroxysmal atrial fibrillation/flutter, brief episode 6 elevated liver functions Plan Discontinue the amiodarone. Continue patient's other medications and increased dose of beta eric. DNP note has been reviewed, I agree with a documented findings and plan of care. Patient was seen and examined.
--- NOTE | 2016-12-29 16:08 | XR ---
EXAMINATION TYPE: XR chest 2V DATE OF EXAM: 12/29/2016 3:22 PM COMPARISON: 12/27/2016 HISTORY: 76-year-old male unexplained fever, CABG on 12/24/2016 TECHNIQUE: Frontal and lateral views FINDINGS: Heart is borderline in size. Median sternotomy wires are present with post-CABG clips in the mediasti num. Small effusions are noted with some new patchy opacity at the left midlung. A band of atelectasi s at the right base. IMPRESSION: 1. Borderline heart size with small effusions. Correlate to exclude mild CHF. 2. New patchy left midlung atelectasis or developing consolidation. Correlate to exclude developing p neumonia here.
[2016-12-29 16:44] LABS: Glucose,Whole Blood 103 mg/dL (75-99)
[2016-12-29] MEDS: HYDROcodone/APAP 5-325MG 1 EACH TAB PO PRN (19:00)
[2016-12-29 20:41] LABS: Glucose,Whole Blood 126 mg/dL (75-99)
[2016-12-29] MEDS: SENNOSIDES-DOCUSATE SODIUM 1 EACH TAB PO SCH (20:49)
[2016-12-29] MEDS ORDERED: ATORVASTATIN 40 MG TAB PO SCH (21:00)
[2016-12-30] MEDS: HEPARIN SODIUM,PORCINE 5,000 UNIT/ML 1 ML VIAL SQ SCH ×2 (00:04→09:49)
[2016-12-30 01:52] LABS: Glucose,Whole Blood 99 mg/dL (75-99)
[2016-12-30 05:34] LABS: Glucose,Whole Blood 98 mg/dL (75-99)
[2016-12-30] MEDS: INSULIN LISPRO (humaLOG) 300 UNIT/3 ML VIAL SQ SCH ×2 (06:21→12:13)
[2016-12-30] MEDS: PANTOPRAZOLE 40 MG TABLET PO SCH (06:34)
[2016-12-30 07:13] LABS: CH 30.8; CHCM 33.5; HCT 35.3 % (39.0-53.0); HDW 2.55; HGB 11.7 gm/dL (13.0-17.5); MCH 30.6 pg (25.0-35.0); MCHC 33.1 g/dL (31.0-37.0); MCV 92.3 fL (80.0-100.0); Mean Platelet Volume 7.3; RBC 3.82 m/uL (4.30-5.90); RDW 12.4 % (11.5-15.5); WBC 11.7 k/uL (3.8-10.6)
[2016-12-30 07:27] LABS: ALT 97 U/L (21-72); AST 62 U/L (17-59); Alkaline Phosphatase 52 U/L (38-126); Anion Gap 11 mmol/L; Blood Urea Nitrogen 17 mg/dL (9-20); Calcium 8.5 mg/dL (8.4-10.2); Carbon Dioxide 22 mmol/L (22-30); Chloride 105 mmol/L (98-107); Glucose 98 mg/dL (74-99); Non-African American GFR(MDRD) >60 (>60 ml/min/1.73 sqM); Potassium 4.4 mmol/L (3.5-5.1); Sodium 138 mmol/L (137-145); Total Bilirubin 1.1 mg/dL (0.2-1.3); Total Protein 5.7 g/dL (6.3-8.2)
--- NOTE | 2016-12-30 08:51 | P.PN ---
Subjective Principal diagnosis: Coronary artery disease POD #6 off pump CABG 3 with ISIDRO to LAD and SVG sequentially to diagonal 1 and diagonal 2, endovascular vein harvest of the right greater saphenous vein Patient currently sitting up in chair in no apparent distress. Denies pain. Eating breakfast. Objective - Vital Signs Vital signs: Vital Signs Temp 98.5 F 12/30/16 05:00 Pulse 97 12/30/16 04:00 Resp 18 12/30/16 04:00 BP 131/73 12/30/16 04:00 Pulse Ox 93 L 12/30/16 05:00 Intake & Output 12/29/16 12/30/16 12/30/16 18:59 06:59 18:59 Intake Total 780 240 Output Total 300 Balance 780 -300 240 Weight 84.5 kg 80.3 kg Intake: Oral 780 240 Output: Urine 300 Other: Voiding Method Urinal # Voids 2 0 0 # Bowel Movements 0 0 ABP, PAP, CO, CI - Last Documented Arterial Blood Pressure 110/43 Pulmonary Artery Pressure 27/12 Cardiac Output 5.1 Cardiac Index 2.5 - Constitutional General appearance: Present: cooperative, no acute distress - Respiratory Details: Lungs sounds diminished bilaterally. Respirations even, nonlabored. Currently on room air. Able to achieve 1000 mL on incentive spirometry. - Cardiovascular Details: S1, S2 present. Regular rate and rhythm, normal sinus rhythm on telemetry. No episodes of A. fib/flutter overnight. Chest stable. Heart hugger in place with patient demonstrating appropriate use. Trace edema to right forearm present where IV infiltrated. Teds, SCDs present. - Gastrointestinal Gastrointestinal Comment(s): Abdomen soft, nontender, nondistended. Active bowel sounds 4 quadrants. Tolerating diet. - Genitourinary Genitourinary Comment(s): Continues to void clear, yellow urine per urinal. - Integumentary Integumentary Comment(s): Anterior chest wall covered with dry intact silver dressing. Right lower extremity EVH site well approximated. Patient had has what appears to be a heat rash on his left inner thigh just above his knee. Thought to be benign. - Musculoskeletal Musculoskeletal Comment(s): Ambulating in hallway without difficulty. Musculoskeletal: Present: gait normal - Psychiatric Psychiatric: Present: A&O x's 3, appropriate affect, intact judgment & insight - Allied health notes Allied health notes reviewed: nursing - Labs CBC & Chem 7: 12/30/16 06:37 12/30/16 06:37 Labs: Abnormal Lab Results - Last 24 Hours (Table) 12/29/16 12/29/16 12/29/16 Range/Units 11:47 16:43 20:40 WBC (3.8-10.6) k/uL RBC (4.30-5.90) m/uL Hgb (13.0-17.5) gm/dL Hct (39.0-53.0) % POC Glucose (mg/dL) 111 H 103 H 126 H (75-99) mg/dL AST (17-59) U/L ALT (21-72) U/L Total Protein (6.3-8.2) g/dL Albumin (3.5-5.0) g/dL 12/30/16 12/30/16 Range/Units 06:37 06:37 WBC 11.7 H (3.8-10.6) k/uL RBC 3.82 L (4.30-5.90) m/uL Hgb 11.7 L (13.0-17.5) gm/dL Hct 35.3 L (39.0-53.0) % POC Glucose (mg/dL) (75-99) mg/dL AST 62 H (17-59) U/L ALT 97 H (21-72) U/L Total Protein 5.7 L (6.3-8.2) g/dL Albumin 3.0 L (3.5-5.0) g/dL Assessment and Plan (1) Coronary artery disease Status: Acute (2) Hypertension Status: Acute (3) Hyperlipidemia Status: Acute (4) History of stroke Status: Acute Plan: 1. Continue aspirin, Plavix, Mani, beta eric 2. Continue to encourage incentive spirometry use 3. Low grade temp overnight, leukocytosis this morning. Will start him on Keflex 500 mg 4 times a day 7 days 4. Increase activity, ambulate in hallway. PT following. 5. GI/DVT prophylaxis. 6. Anticipate discharge to rehab today. Time with Patient: Greater than 30
[2016-12-30] MEDS: IPRATROPIUM-ALBUTEROL 3 ML NEB INHALATION SCH ×2 (09:24→12:08)
[2016-12-30] MEDS: ASPIRIN 325 MG TAB PO SCH (09:49)
[2016-12-30] MEDS: CLOPIDOGREL 75 MG TAB PO SCH (09:49)
[2016-12-30] MEDS: CEPHALEXIN 500 MG CAP PO SCH ×2 (09:49→12:10)
[2016-12-30] MEDS: LISINOPRIL 10 MG TAB PO SCH (09:50)
[2016-12-30] MEDS: METOPROLOL TARTRATE 50 MG TAB PO SCH (09:50)
[2016-12-30 12:00] VITALS: BP 139/74; TEMP 99.2
[2016-12-30] MEDS: THIAMINE 100 MG TAB PO SCH (12:10)
[2016-12-30] MEDS: MULTIVITAMINS, THERA 1 EACH TAB PO SCH (12:10)
[2016-12-30 12:11] VITALS: PULSE 88
[2016-12-30] MEDS: FOLIC ACID 1 MG TAB PO SCH (12:11)
[2016-12-30 12:13] LABS: Glucose,Whole Blood 85 mg/dL (75-99)
--- NOTE | 2016-12-30 12:36 | P.PN ---
Subjective Principal diagnosis: Status post CABG 76-year-old male patient underwent three-vessel bypass surgery and the patient was brought into the intensive care unit and a critically care management consultation was placed. The patient is currently sedated with Diprivan at 50 mics. His intubated on a mechanical ventilator at a rate of 12, tidal volume 550, FiO2 initiate 100% currently is down to 50% and a PEEP of 5. Post surgical chest x-ray shows adequate expansion of both lungs, ET tube is in a good location, there is a mediastinal and the left pleural chest tube, [place]- Stephan catheter in place and NG tube is in place. Hemodynamically, the patient has a PA pressure of 35/20 with a cardiac index of 2.3. The patient is on a clevidipine drip at the rate of 6 mg an hour and the patient is also on nitroglycerin at 25 mcg/m. He is producing adequate amount of urine output. Output from the chest tube is minimal and the total amount of output from the chest tube since his arrival is 100. He is sedated with Diprivan at 50 mics. His an alcoholic. He drinks alcohol on a daily basis and drinks shock. The patient is also on an insulin drip for blood sugar control. No other significant events postop. He is a ex-smoker. No reported history of COPD. On the patient is being seen in follow-up. The patient was seen immediately postoperative and following that the patient was gradually weaned off the mechanical ventilator and he was extubated blood any major difficulties. This morning, the patient is on 4 L of oxygen by nasal cannula and his FiO2 is being gradually weaned off. He is postop day #1. His chest x- ray shows postsurgical changes with atelectatic changes in lung bases and small effusions. Chest tubes are in good location. Output from the chest tubes had been around 10-15 mL on an hourly basis. Hemodynamically, the patient is hypertensive and he is still on a clevidipine drip for blood pressure control and currently is on 6 mg an hour. He is producing adequate amount of urine output. He is using incentive spirometer. Is awake and alert and following commands and answering questions appropriately. [place]-Stephan catheter in place and this will be hopefully taken off after consulting with cardiothoracic surgery. He is doing aggressive pulmonary toileting. He has a hemoglobin of 13.6. Renal function is stable. No other significant events over the past 24 hours. On 12/26/2016, the patient is doing well and he is being seen in follow-up in the intensive care unit. He has done extremely well during surgery and the patient is postop day #2. Chest tubes have been REMOVED TODAY AND THE PATIENT IS ON FEW LITERS OF OXYGEN NASAL CANNULA. HEMODYNAMICALLY STABLE. BLOOD PRESSURE IS UNDER GOOD CONTROL. HE IS PRODUCING ADEQUATE AMOUNT OF URINE OUTPUT. HE IS USING INCENTIVE SPIROMETER. SURGICAL WOUND SITE AT ALL DRY CLEAN AND INTACT. On 12/27/2016, patient is doing well, he is basically asymptomatic, and his postoperative day #3. Globin today is 11.5 electrolytes are normal, renal profile is relatively normal. On 12/28/2016, patient continues to do well, his post operative day #4. Hemoglobin today is 11.8, electrolytes and renal profile are normal. WBC count is 7.8. His last chest x-ray was on 12/27, overall the patient is doing well. And he could be discharged home probably in the next 24 hours. On follow-up on 12/29/2016, patient continues to do well, his postoperative day # 5. He had off-pump CABG 3 with ISIDRO to LAD SVG sequential to diagonal 1 and diagonal 2. Overall postoperative course has been uneventful, patient is doing well clinically, and could be considered for discharge planning soon. Patient was reevaluated today on 12/30/2016, continues to do relatively well, his postoperative day #6 patient had a low-grade fever last night, and he has a superficial thrombophlebitis in the right forearm. Patient was placed on Keflex. Pulmonary-parks is doing well, no cough no wheezing no shortness of breath. Has been ambulatory in the [facility] for the last few days. CBC was relatively unremarkable. And basic metabolic profile was normal. Objective - Vital Signs Vital signs: Vital Signs Temp 99.2 F 12/30/16 11:59 Pulse 88 12/30/16 12:20 Resp 18 12/30/16 11:59 BP 139/74 12/30/16 11:59 Pulse Ox 98 12/30/16 11:59 Intake & Output 12/29/16 12/30/16 12/30/16 18:59 06:59 18:59 Intake Total 780 240 Output Total 300 Balance 780 -300 240 Weight 84.5 kg 80.3 kg Intake: Oral 780 240 Output: Urine 300 Other: Voiding Method Urinal # Voids 2 0 0 # Bowel Movements 0 0 ABP, PAP, CO, CI - Last Documented Arterial Blood Pressure 110/43 Pulmonary Artery Pressure 27/12 Cardiac Output 5.1 Cardiac Index 2.5 - Exam Physical Exam: Revealed a 76-year-old white male in no distress. HEENT:[Neck is supple.] [No neck masses.] [No thyromegaly.] [No JVD.] Chest: [Clear throughout, no crackles, no rhonchi, no wheezes.] Cardiac Exam: [Normal S1 and S2, no S3 gallop, no murmur.] Abdomen: [Soft, nontender, no megaly, no rebound, no guarding, normal bowel sounds.] Extremities: [Slight erythema and swelling noted in the area of the right forearm, no evidence of any discharge, and no open wounds noted. Patient is applying ice packs to the area. Neurological Exam: [No focal neurologic deficit.] - Labs CBC & Chem 7: 12/30/16 06:37 12/30/16 06:37 Labs: Abnormal Lab Results - Last 24 Hours (Table) 12/29/16 12/29/16 12/30/16 Range/Units 16:43 20:40 06:37 WBC 11.7 H (3.8-10.6) k/uL RBC 3.82 L (4.30-5.90) m/uL Hgb 11.7 L (13.0-17.5) gm/dL Hct 35.3 L (39.0-53.0) % POC Glucose (mg/dL) 103 H 126 H (75-99) mg/dL AST (17-59) U/L ALT (21-72) U/L Total Protein (6.3-8.2) g/dL Albumin (3.5-5.0) g/dL 12/30/16 Range/Units 06:37 WBC (3.8-10.6) k/uL RBC (4.30-5.90) m/uL Hgb (13.0-17.5) gm/dL Hct (39.0-53.0) % POC Glucose (mg/dL) (75-99) mg/dL AST 62 H (17-59) U/L ALT 97 H (21-72) U/L Total Protein 5.7 L (6.3-8.2) g/dL Albumin 3.0 L (3.5-5.0) g/dL Microbiology - Last 24 Hours (Table) 12/30/16 05:00 Urine Culture - Preliminary Urine,Clean Catch Assessment and Plan Plan: 1 multivessel coronary artery disease and the patient is post three-vessel bypass surgery, postop day # 6 2 post thoracotomy Status and the patient was extubated without any major difficulties. Currently on high flow oxygen which is being gradually weaned off. Chest tubes are all in place. No major respiratory difficulties. Today' s chest x-ray showing postsurgical changes. On 12/26/2016 the patient is doing extremely well. All of the chest tubes have been removed and the patient's chest x-ray shows some limited atelectatic changes in lung bases bilaterally be given a dose of Lasix. On 12/27/2016, patient continues to do well, relatively asymptomatic, and progressing quite nicely. On 12/28/2016, continues to do well, discharge planning is likely in progress. On 12/29/2016, continues to do well, patient will likely be discharged home in the next 24 hours. On 12/30/2016, patient is doing well, has a bit of a superficial thrombophlebitis of the right forearm, discharge planning is in progress. 3 stable hemodynamics 4 postoperative hypertension, recovered 5 alcoholism Recommendation: Continue incentive spirometry, ambulate, agree with discharge planning today. Time with Patient: Less than 30
--- NOTE | 2016-12-30 14:28 | P.DS ---
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 Consult: post cardiac surgery Do you want consulting provider notified?: Yes Primary care physician: Magdaleno Hung - Discharge Diagnosis(es) (1) Coronary artery disease Current Visit: No Status: Acute (2) Hypertension Current Visit: No Status: Acute (3) Hyperlipidemia Current Visit: No Status: Acute (4) History of stroke Current Visit: No Status: Acute Hospital Course: FINAL DIAGNOSIS: 1.[coronary artery disease] 2.[hypertension] 3.[hyperlipidemia] 4.[history of CVA] 5.[tobacco dependence] 6.[paroxysmal atrial flutter PRINCIPAL PROCEDURE: [] 1.[elective off pump CABG x 3 with ISIDRO to LAD, SVG sequentially to Diagonal 1 and Diagonal 2] 2.[endovascular vein harvest of right greater saphenous vein] 3.[intra-operative transesophageal echocardiogram] 4.[epi-aortic ultrasound] HISTORY OF PRESENT ILLNESS: [This 76 year old male had been followed by Dr. Rizvi for hypertension and dyslipidemia. He presented to Dr. Rizvi's office with complaints of chest discomfort despite a negative stress test the preceding year. He underwent cardiac catheterization which revealed left anterior descending coronary artery with 90% stenosis in the ostial portion, along with diffuse disease and a second lesion with about 70% stenosis in the midportion. Due to these findings, cardiothoracic surgery was consulted for potential coronary artery bypass grafting. The procedure, all risks and benefits were explained in detail to the patient and his granddaughter. They verbalized understanding and consented to proceed with surgery. He received pre -operative testing and was discharged home from the laborer stores to allow for Plavix metabolism, to be brought back as an outpatient for surgery.] HOSPITAL COURSE:[The patient was brought in as an outpatient to the preoperative area, prepared for surgery, and taken to the OR. Dr. Garcia performed an off pump coronary artery bypass grafting x three with the ISIDRO to the LAD, and right greater saphenous vein graft sequentially to the diagonal 1 and diagonal 2, endovascular vein harvesting of the right greater saphenous vein , intra-operative transesophageal echocardiogram, and epi-aortic scanning. Upon completion of the surgery the patient was taken to the intensive care unit where he was recovered, monitored hemodynamically, and subsequently had a somewhat stormy recovery. He was extubated POD #0, all lines, tubes, drips were DC'd when appropriate. He was transferred to [address] [place] [address] for further monitoring and rehabilitation. He did develop paroxysmal rapid atrial flutter which was treated accordingly, as well as a solitary episode of leukocytosis with nightly low grade fevers, which was strongly felt to be secondary to atelectasis as the patient required aggressive motivation to utilize his incentive spirometer. We did start antibiotics for one week just to be safe. His oxygen was titrated down, he continued to work with physical therapy, and was ready for discharge. He was discharged to a rehab facility as he has no home support. ] COMPLICATIONS: [His postoperative period was complicated by paroxysmal rapid atrial flutter and low grade fevers thought to be from atelectasis] CONSULTATIONS: 1.[Dr. Rizvi for cardiology] 2.[Dr. Hansen for pulmonology] 3.[Dr. Scott for medical management] DISCHARGE INSTRUCTIONS: 1. No driving for 4 weeks, or until physician gives their ok. 2. The patient should sleep in their own bed, no medical bed needed. 3. Stairs are not an issue. If the bedroom is upstairs, it is advised that the patient go up at night and down in the morning for the first week. Go slowly, using handrail and take 1 step at a time. 4. GLYNN hose are to be worn for 30 days or until physician discontinues. 5. Heart hugger is to be worn 100% of the time until physician discontinues.( except when showering) 6. No lifting, pushing, or pulling more than 10 pounds for 12 weeks. The physician will advise of any restriction changes. 7. The patient is expected to continue the prescribed walking program. 8. Continue pain control per as needed orders. 9. Continue with incentive spirometry and splinting/heart hugger until otherwise directed by the physician. 10. Must shower daily using liquid antibacterial soap and a separate white washcloth for each individual incision. 11. Please remove Silverlon chest dressing on [01/06/17] with routine sternal incision care thereafter. Rehab SERVICES TO PROVIDE: RN SKILLED HOME CARE SERVICES FOR POST-OP SURGICAL PATIENTS WITH THE FOLLOWING: Coronary Artery Bypass Surgery (CABG) RN TO CONTINUE EDUCATION FROM ``ROAD TO A HEALTH HEART PATIENT EDUCATION MANUAL (GIVEN TO PATIENT IN THE HOSPITAL) MEDICATION RECONCILIATION WITH EDUCATION NEEDED ON FIRST HOME VISIT EMPHASIZE IMPORTANCE OF WEARING HEART HUGGER ENCOURAGE USE OF INCENTIVE SPIROMETER 10 X EVERY HOUR WHILE AWAKE ENCOURAGE UTILIZATION OF LOWER EXTREMITY COMPRESSION STOCKINGS/GLYNN HOSE and ELEVATE LEGS ABOVE LEVEL OF HEART WHILE AT REST. ENCOURAGE AMBULATION 3-5x/day INCREASING TOLERATES, WHILE AVOID EXTREMES IN TEMPERATURE FREQUENCY: RN TO OPEN THE PATIENT WITHIN 24 HOURS OF DISCHARGE FROM THE HOSPITAL WITH TELEHEALTH INSTALLED [place] [facility] TO VISIT 2-3 X A WEEK FOR 4 WEEKS ESTABLISHED BY PATIENT NEEDS. REMOVAL OF SUTURES: NURSING SERVICES TO REMOVE SUTURES TWO WEEKS POST SURGICAL DATE [ 01/07/17]. If any questions regarding suture removal please call the office at [phone]. LABORATORY: CBC, CMP TO BE DRAWN ON THE THIRD DAY HOME, Tuesday01/02/2017 (RAN STAT) FAX RESULTS TO [phone]. TELEHEALTH PARAMETERS: WEIGHT: NOTIFY MD OF WEIGHT GAIN OF 2 LBS IN 24 HOURS OR 5 LBS IN ONE WEEK HR: NOTIFY MD OF HR <55 BPM OR HR>100 BPM BP: NOTIFY MD IF BP <90/55 OR BP>140/100 O2 SAT: NOTIFY MD IF PO2<93% ON ROOM AIR SEND TELEHEALTH REPORT TO COMPOUND COATING MACHINE OFFBEARER AND CARDIOVASCULAR SURGEON THE FIRST WEEK OF CARE AND THEN BI-WEEKLY. PLEASE ADDITIONALLY COMMUNICATE ANY ABNORMALS AND NEW FINDINGS TO THE SURGEONS OFFICE. Patient Condition at Discharge: Stable Plan - Discharge Summary Discharge Medication List Atenolol [Tenormin] 25 mg PO DAILY 12/15/16 [History] Clopidogrel Bisulfate [Plavix] 75 mg PO DAILY 12/15/16 [History] Isosorbide Mononitrate ER [Imdur] 30 mg PO DAILY 12/15/16 [History] Nitroglycerin Sl Tabs [Nitrostat] 0.4 mg SUBLINGUAL Q5M PRN 12/15/16 [History] Vitamin E 1,000 unit PO DAILY 12/15/16 [History] amLODIPine [Norvasc] 10 mg PO DAILY 12/15/16 [History] Aspirin 325 mg PO ONCE 12/24/16 [History] Atorvastatin Calcium [Atorvastatin Calcium] 20 mg PO DAILY 12/24/16 [History] Follow up Appointment(s)/Referral(s): James Garcia MD [STAFF PHYSICIAN] - 01/24/17 2:00 pm Magdaleno Hung DO [Primary Care Provider] - 01/06/17 10:00 am oJrdi Rizvi MD [STAFF PHYSICIAN] - 01/13/17 3:45 pm Zelda Hansen MD [STAFF PHYSICIAN] - 01/17/17 2:00 pm Activity/Diet/Wound Care/Special Instructions: DISCHARGE INSTRUCTIONS: 1. No driving for 4 weeks, or until physician gives their ok. 2. The patient should sleep in their own bed, no medical bed needed. 3. Stairs are not an issue. If the bedroom is upstairs, it is advised that the patient go up at night and down in the morning for the first week. Go slowly, using handrail and take 1 step at a time. 4. GLYNN hose are to be worn for 30 days or until physician discontinues. 5. Heart hugger is to be worn 100% of the time until physician discontinues.( except when showering) 6. No lifting, pushing, or pulling more than 10 pounds for 12 weeks. The physician will advise of any restriction changes. 7. The patient is expected to continue the prescribed walking program. 8. Continue pain control per as needed orders. 9. Continue with incentive spirometry and splinting/heart hugger until otherwise directed by the physician. 10. Must shower daily using liquid antibacterial soap and a separate white washcloth for each individual incision. 11. Please remove Silverlon chest dressing on [01/06/17] with routine sternal incision care thereafter. Rehab SERVICES TO PROVIDE: RN SKILLED HOME CARE SERVICES FOR POST-OP SURGICAL PATIENTS WITH THE FOLLOWING: Coronary Artery Bypass Surgery (CABG) RN TO CONTINUE EDUCATION FROM ``ROAD TO A HEALTH HEART PATIENT EDUCATION MANUAL (GIVEN TO PATIENT IN THE HOSPITAL) MEDICATION RECONCILIATION WITH EDUCATION NEEDED ON FIRST HOME VISIT EMPHASIZE IMPORTANCE OF WEARING HEART HUGGER ENCOURAGE USE OF INCENTIVE SPIROMETER 10 X EVERY HOUR WHILE AWAKE ENCOURAGE UTILIZATION OF LOWER EXTREMITY COMPRESSION STOCKINGS/GLYNN HOSE and ELEVATE LEGS ABOVE LEVEL OF HEART WHILE AT REST. ENCOURAGE AMBULATION 3-5x/day INCREASING TOLERATES, WHILE AVOID EXTREMES IN TEMPERATURE FREQUENCY: RN TO OPEN THE PATIENT WITHIN 24 HOURS OF DISCHARGE FROM THE HOSPITAL WITH TELEHEALTH INSTALLED [place] [facility] RN TO VISIT 2-3 X A WEEK FOR 4 WEEKS ESTABLISHED BY PATIENT NEEDS. REMOVAL OF SUTURES: NURSING SERVICES TO REMOVE SUTURES TWO WEEKS POST SURGICAL DATE [ 01/07/17]. If any questions regarding suture removal please call the office at [phone]. LABORATORY: CBC, CMP TO BE DRAWN ON THE THIRD DAY HOME, Tuesday01/02/2017 (RAN STAT) FAX RESULTS TO [phone]. TELEHEALTH PARAMETERS: WEIGHT: NOTIFY MD OF WEIGHT GAIN OF 2 LBS IN 24 HOURS OR 5 LBS IN ONE WEEK HR: NOTIFY MD OF HR <55 BPM OR HR>100 BPM BP: NOTIFY MD IF BP <90/55 OR BP>140/100 O2 SAT: NOTIFY MD IF PO2<93% ON ROOM AIR SEND TELEHEALTH REPORT TO COMPOUND COATING MACHINE OFFBEARER AND CARDIOVASCULAR SURGEON THE FIRST WEEK OF CARE AND THEN BI-WEEKLY. PLEASE ADDITIONALLY COMMUNICATE ANY ABNORMALS AND NEW FINDINGS TO THE SURGEONS OFFICE.
--- NOTE | 2016-12-30 14:55 | P.PN ---
Subjective Principal diagnosis: CABG This is a 76-year-old gentleman who is status post coronary artery bypass grafting surgery, he was seen and examined this morning. Doing well overall. Denies any shortness of breath or chest discomfort. Remaining in normal sinus rhythm. Overall doing well. Improving on his I & S. Up walking several times today. Planning for transfer to rehab today. Objective - Vital Signs Vital signs: Vital Signs Temp 99.2 F 12/30/16 11:59 Pulse 88 12/30/16 12:20 Resp 18 12/30/16 11:59 BP 139/74 12/30/16 11:59 Pulse Ox 98 12/30/16 11:59 Intake & Output 12/29/16 12/30/16 12/30/16 18:59 06:59 18:59 Intake Total 780 240 Output Total 300 Balance 780 -300 240 Weight 84.5 kg 80.3 kg Intake: Oral 780 240 Output: Urine 300 Other: Voiding Method Urinal # Voids 2 0 0 # Bowel Movements 0 0 ABP, PAP, CO, CI - Last Documented Arterial Blood Pressure 110/43 Pulmonary Artery Pressure 27/12 Cardiac Output 5.1 Cardiac Index 2.5 - Exam PHYSICAL EXAMINATION: HEENT: Head is atraumatic, normocephalic. Pupils equal, round. Neck is supple. There is no elevated jugular venous pressure. HEART EXAMINATION: Heart S1, S2 normal. No murmur or gallop heard. CHEST EXAMINATION: Lungs reveal diminished air entry to bilateral bases. ] ABDOMEN: Soft, nontender. Bowel sounds are heard. No organomegaly noted. EXTREMITIES: 2+ peripheral pulses with trace evidence of peripheral edema and no calf tenderness noted. NEUROLOGIC patient is awake, alert and oriented -3. . - Labs CBC & Chem 7: 12/30/16 06:37 12/30/16 06:37 Labs: Abnormal Lab Results - Last 24 Hours (Table) 12/29/16 12/29/16 12/30/16 Range/Units 16:43 20:40 06:37 WBC 11.7 H (3.8-10.6) k/uL RBC 3.82 L (4.30-5.90) m/uL Hgb 11.7 L (13.0-17.5) gm/dL Hct 35.3 L (39.0-53.0) % POC Glucose (mg/dL) 103 H 126 H (75-99) mg/dL AST (17-59) U/L ALT (21-72) U/L Total Protein (6.3-8.2) g/dL Albumin (3.5-5.0) g/dL 12/30/16 Range/Units 06:37 WBC (3.8-10.6) k/uL RBC (4.30-5.90) m/uL Hgb (13.0-17.5) gm/dL Hct (39.0-53.0) % POC Glucose (mg/dL) (75-99) mg/dL AST 62 H (17-59) U/L ALT 97 H (21-72) U/L Total Protein 5.7 L (6.3-8.2) g/dL Albumin 3.0 L (3.5-5.0) g/dL Microbiology - Last 24 Hours (Table) 12/30/16 05:00 Urine Culture - Preliminary Urine,Clean Catch Assessment and Plan Plan: Assessment and plan #1 status post coronary artery bypass grafting surgery #2 hypertension #3 EtOH abuse #4 hyperlipidemia # 5 paroxysmal atrial fibrillation/flutter, brief episode #6 elevated liver functions, AST 62, ALT 97 today. Plan We will speak with cardiothoracic surgery regarding discontinuing the aspirin and Plavix. Continue anticoagulation with Coumadin. DNP note has been reviewed, I agree with a documented findings and plan of care. Patient was seen and examined.
--- NOTE | 2016-12-30 20:40 | P.PN ---
Subjective Date of service 12/30/2016. Progress note being dictated for Dr. Bolaños. Interval history: This a 76-year-old gentleman admitted with multivessel CAD, status post CABG and multiple other medical issues. Telemetry remains sinus rhythm. Febrile, T-max 100.5, WBC 11.7 ,pancultured with urine culture/ micro- pending, preliminary blood cultures negative, chest x-ray reporting left midlung atelectasis versus consolidation. Right forearm thrombophlebitis, Keflex started. Denies nausea or vomiting .Blood sugars controlled. Denies chest pain, palpitations or increasing shortness of breath. Objective - Vital Signs Vital signs: Vital Signs Temp 99.2 F 12/30/16 11:59 Pulse 88 12/30/16 12:20 Resp 18 12/30/16 11:59 BP 139/74 12/30/16 11:59 Pulse Ox 98 12/30/16 11:59 Intake & Output 12/30/16 12/30/16 12/31/16 06:59 18:59 06:59 Intake Total 240 Output Total 300 Balance -300 240 Weight 80.3 kg Intake: Oral 240 Output: Urine 300 Other: Voiding Method Urinal # Voids 0 0 # Bowel Movements 0 0 ABP, PAP, CO, CI - Last Documented Arterial Blood Pressure 110/43 Pulmonary Artery Pressure 27/12 Cardiac Output 5.1 Cardiac Index 2.5 - Exam PHYSICAL EXAM: VITAL SIGNS: As above GENERAL: [Sitting up in bed, no acute distress] HEENT: [Pupils equal conjunctiva normal.] NECK: [Supple, no JVD] RESPIRATORY EFFORT:[Normal] LUNGS: [Diminished, no crackles wheezes or rhonchi] CARDIOVASCULAR[regular S1 and S2, no murmurs rubs or gallops, no edema] GI: [Abdomen soft, nontender, positive bowel sounds.] PSYCH: [Alert and oriented -3, mood and affect normal.] NEURO: No focal deficits, moves all 4 extremities, strength and sensation intact - Labs CBC & Chem 7: 12/30/16 06:37 12/30/16 06:37 Labs: Abnormal Lab Results - Last 24 Hours (Table) 12/29/16 12/30/16 12/30/16 Range/Units 20:40 06:37 06:37 WBC 11.7 H (3.8-10.6) k/uL RBC 3.82 L (4.30-5.90) m/uL Hgb 11.7 L (13.0-17.5) gm/dL Hct 35.3 L (39.0-53.0) % POC Glucose (mg/dL) 126 H (75-99) mg/dL AST 62 H (17-59) U/L ALT 97 H (21-72) U/L Total Protein 5.7 L (6.3-8.2) g/dL Albumin 3.0 L (3.5-5.0) g/dL Microbiology - Last 24 Hours (Table) 12/29/16 16:23 Blood Culture - Preliminary Blood No Growth after 24 hours 12/29/16 16:44 Blood Culture - Preliminary Blood No Growth after 24 hours 12/30/16 05:00 Urine Culture - Preliminary Urine,Clean Catch Assessment and Plan Plan: 1. Multivessel CAD, status post CABG. 2. [Hypertension]. 3. [Hyperlipidemia]. 4. [Bibasilar and left midlung atelectasis, 5. Paroxysmal atrial flutter with RVR, status post amiodarone drip. 6. Elevated LFTs secondary to amiodarone Plan: Continue on current medication regime , nebulized bronchodilators, aspirin , Plavix, beta eric, SARAI inhibitor, monitoring and symptomatic treatment. Final culture results pending, fevers most likely related to atelectasis; antibiotic recommendations discussed with cardiothoracic surgery OVERHEAD WORKER. Continue with aggressive pulmonary toileting, IS. Increase ambulation as tolerated. patient is being discharged to [facility] as per cardiothoracic surgery. The impression and plan of care has been dictated as directed. : I performed a H&P examination of this patient and discussed the same with the dictator. I agree with the dictator's note. Any additional findings/opinions/ etc. will be noted,
== END 2016-12-30 15:55 | DRG 236 ==
LOC: 2ORMAIN 12-24 06:12 → 6ICU 12-24 10:45 → 6SEL 12-26 14:02
PROVIDERS: ADMIT Thoracic Surgery (Cardiothoracic Vascular Surgery); ATTEND Thoracic Surgery (Cardiothoracic Vascular Surgery)
PROC: B245ZZ4 Ultrasonography of Left Heart, Transesophageal (ICD-10-PCS; 2016-12-24)
PROC: 06BP4ZZ Excision of Right Saphenous Vein, Percutaneous Endoscopic Approach (ICD-10-PCS; principal; 2016-12-24 09:30)
PROC: 02100Z9 Bypass Coronary Artery, One Artery from Left Internal Mammary, Open Approach (ICD-10-PCS; principal; 2016-12-24 09:30)
PROC: 021109W Bypass Coronary Artery, Two Arteries from Aorta with Autologous Venous Tissue, Open Approach (ICD-10-PCS; principal; 2016-12-24 09:30)
DX: I25.10 Atherosclerotic heart disease of native coronary artery without angina pectoris (principal); I48.92 Unspecified atrial flutter; I80.8 Phlebitis and thrombophlebitis of other sites; J98.11 Atelectasis; I97.3 Postprocedural hypertension; I48.0 Paroxysmal atrial fibrillation; E78.5 Hyperlipidemia, unspecified; I25.2 Old myocardial infarction; I10 Essential (primary) hypertension; F17.200 Nicotine dependence, unspecified, uncomplicated; F10.20 Alcohol dependence, uncomplicated; Z86.73 Personal history of transient ischemic attack (TIA), and cerebral infarction without residual deficits; Z82.49 Family history of ischemic heart disease and other diseases of the circulatory system; Z79.02 Long term (current) use of antithrombotics/antiplatelets; Z79.82 Long term (current) use of aspirin; Z79.899 Other long term (current) drug therapy
CPT/HCPCS: 36620; 71010; 71020; 80048; 80053; 82330; 82805; 83735; 83880; 84100; 85025; 85027; 85520; 85610; 85730; 86850; 86891; 86900; 86901; 86920; 87040; 87086; 94002; 94640; 94760

== ENCOUNTER 2017-01-11 15:23 | Inpatient (IN) | payer MEDICARE ==
--- NOTE | 2017-01-11 15:44 | ED ---
General Adult HPI - General Chief complaint: Altered Mental Status Stated complaint: weakness Time Seen by Provider: 01/11/17 15:30 Source: patient, EMS, RN notes reviewed Mode of arrival: EMS - History of Present Illness Initial comments: This is a 76-year-old male who presents emergency Department with a past medical history significant for bypass surgery 2 weeks ago. Patient states he had a triple bypass. Patient states this morning he woke up to shower when he got out of the shower his speech was slurred. Patient states it started about 8 :00 this morning. Patient states the slurred speech continued until just prior to arrival. Patient states he also had generalized weakness but no focal weakness. Patient denied headache patient denies any numbness. Patient denies chest pain palpitations difficulty breathing [place] of breath per patient had a recent fever or chills or cough. Patient denied abdominal pain patient denies nausea vomiting diarrhea per patient denied any recent injury or trauma. Patient denied any lightheadedness dizziness or near syncopal episode. - Related Data Home Medications Medication Instructions Recorded Confirmed Clopidogrel Bisulfate [Plavix] 75 mg PO DAILY 12/15/16 01/11/17 Aspirin 81 mg PO DAILY 01/11/17 01/11/17 Multivitamins, Thera [Multivitamin] 1 tab PO DAILY@1200 01/11/17 01/11/17 Previous Rx's Medication Instructions Recorded Atorvastatin [Lipitor] 40 mg PO HS tab 12/30/16 Cephalexin [Keflex] 500 mg PO QID #0 cap 12/30/16 Folic Acid 1 mg PO DAILY@1200 tab 12/30/16 HYDROcodone/APAP 5-325MG [[place] 1 - 2 tab PO Q6HR PRN #30 tab 12/30/16 5-325] Ipratropium-Albuterol Nebulize 3 ml INHALATION RT-QID ampul.neb 12/30/16 [Duoneb 0.5 mg-3 mg/3 ml Soln] Lisinopril [Zestril] 10 mg PO DAILY tab 12/30/16 Magnesium Hydroxide [Milk of 2,400 mg PO BID PRN #0 ml 12/30/16 Magnesia Concentrate] Metoprolol Tartrate [Lopressor] 50 mg PO BID tab 12/30/16 Pantoprazole [Protonix] 40 mg PO AC-BRKFST tablet. 12/30/16 Sennosides-Docusate Sodium 2 each PO HS tab 12/30/16 [Senokot-S] Thiamine [Vitamin B-1] 100 mg PO DAILY@1200 tab 12/30/16 Allergies Allergy/AdvReac Type Severity Reaction Status Date / Time No Known Allergies Allergy Verified 01/11/17 16:30 Review of Systems ROS Statement: Those systems with pertinent positive or pertinent negative responses have been documented in the HPI. ROS Other: All systems not noted in ROS Statement are negative. Past Medical History Past Medical History: Coronary Artery Disease (CAD), Chest Pain / Angina, CVA/ TIA, Hyperlipidemia, Hypertension, Myocardial Infarction ([place]) Additional Past Medical History / Comment(s): Coronary artery disease with diffuse LAD involvement. Please refer to the cardiac catheter patient reports. Hypertension, CVA back in 2013 without any residual deficits, alcoholism. triple bypass History of Any Multi-Drug Resistant Organisms: None Reported Past Surgical History: Appendectomy, Heart Catheterization, Hernia Repair, Joint Replacement Additional Past Surgical History / Comment(s): Left knee arthroplasty Past Anesthesia/Blood Transfusion Reactions: No Reported Reaction Past Psychological History: No Psychological Hx Reported Smoking Status: Former smoker Past Alcohol Use History: Occasional Additional Past Alcohol Use History / Comment(s): quit smoking approx 1999's, smoked approx 50 yrs 1ppd Past Drug Use History: None Reported - Past Family History Mother Family Medical History: No Reported History Father Family Medical History: No Reported History General Exam - General Exam Comments Initial Comments: GENERAL: Patient is well-developed and well-nourished. Patient is nontoxic and well- hydrated and is in no acute distress. ENT: Neck is soft and supple. No significant lymphadenopathy is noted. Oropharynx is clear. Moist mucous membranes. Neck has full range of motion without eliciting any pain. EYES: The sclera were anicteric and conjunctiva were pink and moist. Extraocular movements were intact and pupils were equal round and reactive to light. Eyelids were unremarkable. PULMONARY: Unlabored respirations. Good breath sounds bilaterally. No audible rales rhonchi or wheezing was noted. CARDIOVASCULAR: There is a regular rate and rhythm without any murmurs gallops or rubs. ABDOMEN: Soft and nontender with normal bowel sounds. No palpable organomegaly was noted. There is no palpable pulsatile mass. SKIN: Skin is clear with no lesions or rashes and otherwise unremarkable. NEUROLOGIC: Patient is alert and oriented x3. Cranial nerves II through XII are grossly intact. Motor and sensory are also intact. Normal speech, volume and content. Symmetrical smile. MUSCULOSKELETAL: Normal extremities with adequate strength and full range of motion. No lower extremity swelling or edema. No calf tenderness. LYMPHATICS: No significant lymphadenopathy is noted PSYCHIATRIC: Normal psychiatric evaluation. Normal interpersonal interactions appears functionally intact in deals appropriately with others. No signs of depression. No signs of anxiety. Course Vital Signs 01/11/17 15:30 Temperature 98.2 F Pulse Rate 74 Respiratory 18 Rate Blood Pressure 140/80 O2 Sat by Pulse 99 Oximetry Medical Decision Making - Medical Decision Making EKG shows sinus rhythm at 73 bpm AK interval 214 QRS is 86 QT interval is 402 QTC is 442. Patient's EKG shows no ST segment elevation or depression or T- wave abdomen is noted. Patient's EKG does show Q waves in II, III, and F aVF. Chest x-ray shows no acute normalities. Computed tomography scan of the brain shows no acute infarct but there are some old infarcts noted. I spoke with the hospitalist and they agreed to admit the patient admitted the patient consult and cardiac stress surgery - Lab Data Result diagrams: 01/11/17 15:35 01/11/17 15:35 Lab Results 01/11/17 01/11/17 01/11/17 Range/Units 15:35 15:35 15:35 WBC 7.4 (3.8-10.6) k/uL RBC 3.92 L (4.30-5.90) m/uL Hgb 12.1 L (13.0-17.5) gm/dL Hct 36.1 L (39.0-53.0) % MCV 92.2 (80.0-100.0) fL MCH 31.0 (25.0-35.0) pg MCHC 33.6 (31.0-37.0) g/dL RDW 12.4 (11.5-15.5) % Plt Count 344 (150-450) k/uL Neutrophils % 59 % Lymphocytes % 18 % Monocytes % 5 % Eosinophils % 13 % Basophils % 1 % Neutrophils # 4.3 (1.3-7.7) k/uL Lymphocytes # 1.3 (1.0-4.8) k/uL Monocytes # 0.4 (0-1.0) k/uL Eosinophils # 1.0 H (0-0.7) k/uL Basophils # 0.1 (0-0.2) k/uL PT (9.0-12.0) sec INR (<1.1) APTT (22.0-30.0) sec Sodium 141 (137-145) mmol/L Potassium 4.2 (3.5-5.1) mmol/L Chloride 106 (98-107) mmol/L Carbon Dioxide 27 (22-30) mmol/L Anion Gap 8 mmol/L BUN 16 (9-20) mg/dL Creatinine 1.02 (0.66-1.25) mg/dL Est GFR (MDRD) Af Amer >60 (>60 ml/min/1.73 sqM) Est GFR (MDRD) Non-Af >60 (>60 ml/min/1.73 sqM) Glucose 95 (74-99) mg/dL Calcium 8.7 (8.4-10.2) mg/dL Magnesium 2.1 (1.6-2.3) mg/dL Total Bilirubin 0.5 (0.2-1.3) mg/dL AST 27 (17-59) U/L ALT 55 (21-72) U/L Alkaline Phosphatase 77 (38-126) U/L Total Creatine Kinase 174 H (55-170) U/L CK-MB (CK-2) 2.3 (0.0-2.4) ng/mL CK-MB (CK-2) Rel Index 1.3 Troponin I <0.012 (0.000-0.034) ng/mL Total Protein 6.0 L (6.3-8.2) g/dL Albumin 3.3 L (3.5-5.0) g/dL 01/11/17 Range/Units 15:35 WBC (3.8-10.6) k/uL RBC (4.30-5.90) m/uL Hgb (13.0-17.5) gm/dL Hct (39.0-53.0) % MCV (80.0-100.0) fL MCH (25.0-35.0) pg MCHC (31.0-37.0) g/dL RDW (11.5-15.5) % Plt Count (150-450) k/uL Neutrophils % % Lymphocytes % % Monocytes % % Eosinophils % % Basophils % % Neutrophils # (1.3-7.7) k/uL Lymphocytes # (1.0-4.8) k/uL Monocytes # (0-1.0) k/uL Eosinophils # (0-0.7) k/uL Basophils # (0-0.2) k/uL PT 10.9 (9.0-12.0) sec INR 1.1 (<1.1) APTT 20.8 L (22.0-30.0) sec Sodium (137-145) mmol/L Potassium (3.5-5.1) mmol/L Chloride (98-107) mmol/L Carbon Dioxide (22-30) mmol/L Anion Gap mmol/L BUN (9-20) mg/dL Creatinine (0.66-1.25) mg/dL Est GFR (MDRD) Af Amer (>60 ml/min/1.73 sqM) Est GFR (MDRD) Non-Af (>60 ml/min/1.73 sqM) Glucose (74-99) mg/dL Calcium (8.4-10.2) mg/dL Magnesium (1.6-2.3) mg/dL Total Bilirubin (0.2-1.3) mg/dL AST (17-59) U/L ALT (21-72) U/L Alkaline Phosphatase (38-126) U/L Total Creatine Kinase (55-170) U/L CK-MB (CK-2) (0.0-2.4) ng/mL CK-MB (CK-2) Rel Index Troponin I (0.000-0.034) ng/mL Total Protein (6.3-8.2) g/dL Albumin (3.5-5.0) g/dL Disposition Clinical Impression: TIA (transient ischemic attack) Disposition: ADMITTED IP TO THIS [facility] Time of Disposition: 16:54
[2017-01-11 15:53] LABS: Basophils # (A) 0.1 k/uL (0-0.2); Basophils % (A) 1 %; CH 31.1; Eosinophils % (A) 13 %; HCT 36.1 % (39.0-53.0); HDW 2.87; HGB 12.1 gm/dL (13.0-17.5); Luc # (Auto) 0.28; Luc % (Auto) 4; Lymphocytes # (A) 1.3 k/uL (1.0-4.8); Lymphocytes % (A) 18 %; MCHC 33.6 g/dL (31.0-37.0); MCV 92.2 fL (80.0-100.0); Mean Platelet Volume 7.9; Monocytes # (A) 0.4 k/uL (0-1.0); Monocytes % (A) 5 %; Neutrophils # (A) 4.3 k/uL (1.3-7.7); Neutrophils % (A) 59 %; RBC 3.92 m/uL (4.30-5.90); RDW 12.4 % (11.5-15.5); WBC 7.4 k/uL (3.8-10.6); WBC (Perox) 7.99
[2017-01-11 16:02] LABS: ALT 55 U/L (21-72); AST 27 U/L (17-59); Alkaline Phosphatase 77 U/L (38-126); Anion Gap 8 mmol/L; Blood Urea Nitrogen 16 mg/dL (9-20); Calcium 8.7 mg/dL (8.4-10.2); Carbon Dioxide 27 mmol/L (22-30); Chloride 106 mmol/L (98-107); Glucose 95 mg/dL (74-99); Magnesium 2.1 mg/dL (1.6-2.3); Non-African American GFR(MDRD) >60 (>60 ml/min/1.73 sqM); Potassium 4.2 mmol/L (3.5-5.1); Sodium 141 mmol/L (137-145); Total Bilirubin 0.5 mg/dL (0.2-1.3)
[2017-01-11 16:07] LABS: Creatine Kinase 174 U/L (55-170); INR 1.1 (<1.1); Prothrombin Time 10.9 sec (9.0-12.0)
[2017-01-11 16:13] LABS: Partial Thromboplastin Time 20.8 sec (22.0-30.0)
[2017-01-11 16:20] LABS: Creatine Kinase MB 2.3 ng/mL (0.0-2.4); Troponin I <0.012 ng/mL (0.000-0.034)
--- NOTE | 2017-01-11 16:40 | CT ---
EXAMINATION TYPE: CT brain wo con DATE OF EXAM: 01/11/2017 4:31 PM COMPARISON: NONE INDICATION: Pt states of weakness and speech slurring today. Hx of bypass x1 week ago. DLP: 979.2 mGycm, Automated exposure control for dose reduction was used. CONTRAST: None CT of the brain is performed utilizing 3 mm thick sections through the posterior fossa and 3 mm thick sections through the remaining calvarium. Study is performed within 24 hours of arrival to the hosp ital. No abnormal hyperdensity is present to suggest an acute intracranial hemorrhage. No mass lesion is evident. No acute infarcts are evident. There is an old infarct along the left temporal lobe. Ischemic changes are within the periventricular white matter, more noticeable in the left frontal lobe white matter a nd subcortical white matter. Ventricles and sulci are appropriate for the patient age. Paranasal sinuses and mastoid air cells within the cabno-fj-aduo are clear. IMPRESSIONS: 1. Old left temporal lobe infarct. 2. Periventricular white matter ischemic type changes. 3. Probable old subcortical infarct left frontal lobe.
--- NOTE | 2017-01-11 16:41 | XR ---
EXAMINATION TYPE: XR chest 2V DATE OF EXAM: 01/11/2017 4:36 PM COMPARISON: 12/29/2016 INDICATION: Chest pain TECHNIQUE: Single frontal view of the chest is obtained. FINDINGS: The heart size is normal. The pulmonary vasculature is normal. Previous left perihilar and lower lobe infiltrate has improved. Minimal posterior residual may remain in is diminished from prior study IMPRESSION: 1. Significant improvement of a left lower lobe infiltrate. Mild residual remains.
[2017-01-11] MEDS ORDERED: ASPIRIN 325 MG TAB PO STA (16:54)
--- NOTE | 2017-01-11 18:13 | US ---
EXAMINATION TYPE: US carotid duplex BILAT DATE OF EXAM: 01/11/2017 5:53 PM COMPARISON: NONE CLINICAL HISTORY: Stenosis. Weakness, slurred speech EXAM MEASUREMENTS: RIGHT: Peak Systolic Velocity (PSV) cm/sec ----- Right CCA: 55.9 ----- Right ICA: 69.1 ----- Right ECA: 63.6 ICA/CCA ratio: 1.2 RIGHT: End Diastole cm/sec ----- Right CCA: 13.1 ----- Right ICA: 20.8 ----- Right ECA: 7.8 LEFT: Peak Systolic Velocity (PSV) cm/sec ----- Left CCA: 59.2 ----- Left ICA: 95.6 ----- Left ECA: 87.8 ICA/CCA ratio: 1.6 LEFT: End Diastole cm/sec ----- Left CCA: 9.8 ----- Left ICA: 29.6 ----- Left ECA: 5.4 VERTEBRALS (direction of flow): Right Vertebral: Antegrade Left Vertebral: Antegrade IMPRESSION: Mild to moderate plaque noted bilaterally. No increased velocities. No evidence of sign ificant stenosis. Criteria for Assigning % of Stenosis / Diameter reduction (Estimation based on the indirect measurements of the internal carotid artery velocities (ICA PSV). 1. Normal (no stenosis)=ICA PSV < 125 cm/s: ratio < 2.0: ICA EDV<40 cm/s. 2. Less than 50% stenosis=ICA PSV < 125 cm/s: ratio < 2.0: ICA EDV<40 cm/s. 3. 50 to 69% stenosis=ICA PSV of 125 to 230 cm/s: ration 2.0 ? 4.0: ICA EDV 40-100 cm/s. 4. Greater than 70% stenosis to near occlusion= ICA PSV > 230 cm/s: ratio > 4.0: ICA EDV > 100 cm/s. 5. Near occlusion= ICA PSV velocities may be low or undetectable: variable ratio and ICA EDV. 6. Total occlusion=unable to detect flow.
[2017-01-11] MEDS ORDERED: MAGNESIUM HYDROXIDE 2,400 MG/10 ML CUP PO PRN (20:25)
[2017-01-11] MEDS: METOPROLOL TARTRATE 50 MG TAB PO SCH (21:17)
[2017-01-11] MEDS: ATORVASTATIN 40 MG TAB PO SCH (21:17)
[2017-01-11] MEDS: SENNOSIDES-DOCUSATE SODIUM 1 EACH TAB PO SCH (21:18)
[2017-01-12 05:39] LABS: Glucose,Whole Blood 91 mg/dL (75-99)
[2017-01-12] MEDS: PANTOPRAZOLE 40 MG TABLET PO SCH (06:29)
[2017-01-12 06:47] LABS: Basophils # (A) 0.1 k/uL (0-0.2); Basophils % (A) 1 %; CH 30.9; CHCM 33.8; Eosinophils % (A) 16 %; HCT 34.9 % (39.0-53.0); HDW 2.85; HGB 11.3 gm/dL (13.0-17.5); Luc # (Auto) 0.18; Luc % (Auto) 3; Lymphocytes # (A) 1.3 k/uL (1.0-4.8); Lymphocytes % (A) 21 %; MCH 29.7 pg (25.0-35.0); MCHC 32.4 g/dL (31.0-37.0); MCV 91.8 fL (80.0-100.0); Mean Platelet Volume 6.8; Monocytes # (A) 0.4 k/uL (0-1.0); Monocytes % (A) 6 %; Neutrophils # (A) 3.5 k/uL (1.3-7.7); Neutrophils % (A) 54 %; RBC 3.81 m/uL (4.30-5.90); RDW 12.5 % (11.5-15.5); WBC 6.4 k/uL (3.8-10.6)
[2017-01-12 07:00] LABS: Anion Gap 9 mmol/L; Blood Urea Nitrogen 13 mg/dL (9-20); Calcium 8.6 mg/dL (8.4-10.2); Carbon Dioxide 24 mmol/L (22-30); Chloride 108 mmol/L (98-107); Glucose 88 mg/dL (74-99); Non-African American GFR(MDRD) >60 (>60 ml/min/1.73 sqM); Potassium 4.2 mmol/L (3.5-5.1); Sodium 141 mmol/L (137-145)
[2017-01-12] MEDS: LISINOPRIL 10 MG TAB PO SCH (08:31)
[2017-01-12] MEDS: METOPROLOL TARTRATE 50 MG TAB PO SCH ×2 (08:31→20:43)
[2017-01-12] MEDS: CLOPIDOGREL 75 MG TAB PO SCH (08:31)
--- NOTE | 2017-01-12 11:54 | P.GSCN ---
History of Present Illness Consult date: 01/12/17 Reason for Consult: TIA like symptoms yesterday Requesting physician: Quinton Krishnan History of present illness: This 76-year-old male presented to the emergency room yesterday via EMS after subjective reports of slurred speech earlier in the day. Patient's granddaughter was concerned about the possibility of a stroke. By the time the patient presented to our emergency room he had no slurred speech, no unilateral weakness, and NIH stroke scale was 0. He was admitted for workup of TIA/CVA. Dr. James Garcia from cardiothoracic surgery was consulted as this patient had coronary artery bypass graft surgery on 12/24/2016. Review of Systems 14 point review of systems was completed and is negative except as noted. - Neurological Reports as per HPI Past Medical History Past Medical History: Coronary Artery Disease (CAD), Chest Pain / Angina, CVA/ TIA, Hyperlipidemia, Hypertension, Myocardial Infarction ([place]) Additional Past Medical History / Comment(s): Coronary artery disease with diffuse LAD involvement. Please refer to the cardiac catheter patient reports. CVA back in 2013 without any residual deficits, alcoholism.DEAF LT EAR, RT EAR [place], triple bypass Last Myocardial Infarction Date:: UNK History of Any Multi-Drug Resistant Organisms: None Reported Past Surgical History: Appendectomy, Coronary Bypass/CABG, Heart Catheterization , Hernia Repair, Joint Replacement Additional Past Surgical History / Comment(s): Left knee arthroplasty, CABG- TRIPLE VESSEL Past Anesthesia/Blood Transfusion Reactions: No Reported Reaction Past Psychological History: No Psychological Hx Reported Additional Psychological History / Comment(s): PT LIVES ALONE IN [place] L[place] HOME THAT HAS 2 STEPS UP TO DOOR. I PET-DOG. CURRENTLY RECEIVING [facility] -TUE-TUE AND PT. STATED HAS NO MEDICAL EQUIPMENT. NO SERVICE IN PAST. 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 Smoking Status: Former smoker Past Alcohol Use History: Occasional Additional Past Alcohol Use History / Comment(s): quit smoking approx 1999's, smoked approx 50 yrs 1ppd Past Drug Use History: None Reported - Past Family History Mother Family Medical History: No Reported History Father Family Medical History: No Reported History Medications and Allergies Home Medications Medication Instructions Recorded Confirmed Type Clopidogrel Bisulfate [Plavix] 75 mg PO DAILY 12/15/16 01/11/17 History Aspirin 81 mg PO DAILY 01/11/17 01/11/17 History Multivitamins, Thera [Multivitamin] 1 tab PO DAILY@1200 01/11/17 01/11/17 History Allergies Allergy/AdvReac Type Severity Reaction Status Date / Time No Known Allergies Allergy Verified 01/11/17 16:30 Surgical - Exam Vital Signs Temp Pulse Resp BP Pulse Ox 98.2 F 74 18 140/80 99 01/11/17 15:30 01/11/17 15:30 01/11/17 15:30 01/11/17 15:30 01/11/17 15:30 - General well developed, well nourished, no distress - Eyes PERRL, normal ocular movement - Respiratory Diminished breath sounds bilaterally. Respirations even, nonlabored. Remains on room air. normal expansion - Cardiovascular S1, S2 present. Regular rate and rhythm, normal sinus rhythm on telemetry. Chest stable. No edema present. Heart hugger in place with patient demonstrating appropriate use. - Abdomen Abdomen: soft, non tender, bowel sounds - Genitourinary Voiding clear, yellow urine. - Integumentary Anterior chest wall incision well approximated. - Neurologic Equal strength bilaterally. No slurred speech present. normal coordination, normal sensation - Musculoskeletal normal gait - Psychiatric oriented to time, oriented to person, oriented to place, speech is normal, memory intact Results - Labs 01/12/17 06:22 01/12/17 06:20 Abnormal Lab Results - Last 24 Hours (Table) 01/12/17 01/12/17 Range/Units 06:20 06:22 RBC 3.81 L (4.30-5.90) m/uL Hgb 11.3 L (13.0-17.5) gm/dL Hct 34.9 L (39.0-53.0) % Eosinophils # 1.0 H (0-0.7) k/uL Chloride 108 H (98-107) mmol/L Diabetes panel 01/12/17 Range/Units 06:20 Sodium 141 (137-145) mmol/L Potassium 4.2 (3.5-5.1) mmol/L Chloride 108 H (98-107) mmol/L Carbon Dioxide 24 (22-30) mmol/L BUN 13 (9-20) mg/dL Creatinine 0.79 (0.66-1.25) mg/dL Glucose 88 (74-99) mg/dL Calcium 8.6 (8.4-10.2) mg/dL Calcium panel 01/12/17 Range/Units 06:20 Calcium 8.6 (8.4-10.2) mg/dL Pituitary panel 01/12/17 Range/Units 06:20 Sodium 141 (137-145) mmol/L Potassium 4.2 (3.5-5.1) mmol/L Chloride 108 H (98-107) mmol/L Carbon Dioxide 24 (22-30) mmol/L BUN 13 (9-20) mg/dL Creatinine 0.79 (0.66-1.25) mg/dL Glucose 88 (74-99) mg/dL Calcium 8.6 (8.4-10.2) mg/dL Adrenal panel 01/12/17 Range/Units 06:20 Sodium 141 (137-145) mmol/L Potassium 4.2 (3.5-5.1) mmol/L Chloride 108 H (98-107) mmol/L Carbon Dioxide 24 (22-30) mmol/L BUN 13 (9-20) mg/dL Creatinine 0.79 (0.66-1.25) mg/dL Glucose 88 (74-99) mg/dL Calcium 8.6 (8.4-10.2) mg/dL - Imaging Chest x-ray: report reviewed, image reviewed EKG: image reviewed Additional studies: CT of brain, carotid Dopplers reviewed. Assessment and Plan (1) Hypertension Status: Acute (2) Hyperlipidemia Status: Acute (3) History of stroke Status: Acute (4) History of coronary artery bypass graft Status: Acute Plan: 1. Continue aspirin, Plavix, statin, beta eric, SARAI inhibitor. 2. No signs of stroke, no indication for need for admittance. Would recommend discharging patient home today. 3. Will discuss with admitting primary care physician. Time with Patient: Greater than 30
[2017-01-12] MEDS: MULTIVITAMINS, THERA 1 EACH TAB PO SCH (12:38)
[2017-01-12] MEDS: THIAMINE 100 MG TAB PO SCH (12:38)
[2017-01-12] MEDS: ASPIRIN 325 MG TAB PO SCH (12:38)
[2017-01-12] MEDS: FOLIC ACID 1 MG TAB PO SCH (12:38)
--- NOTE | 2017-01-12 13:30 | HP ---
DATE OF ADMISSION: HISTORY AND PHYSICAL AND DISCHARGE SUMMARY: This patient is a 76-year-old with recent history of coronary artery bypass grafting, came in with complaints of slurry speech which lasted for a few hours. Patient even today his speech as per the family is not normal. Patient did not have any fevers, tingling, numbness or nausea or vomiting. Denied any difficulty breathing, shortness of breath, cough, runny nose. Patient was admitted with TIA evaluation. Patient had a recent coronary artery bypass grafting. Patient is already on Plavix, aspirin and a statin. Carotid Doppler showed some plaques and CT of the head is essentially negative. Chest x-ray is essentially within normal limits. There is an old temporal lobe infarct and there is probably subcortical infarct in the left frontal lobe. Neurology evaluation is pending. Once Neurology evaluates the patient. The patient probably can be discharged. Patient's symptoms completely resolved at this point of time. REVIEW OF SYSTEMS: CONSTITUTIONAL: No fever, no malaise, no fatigue. HEENT: No recent visual problems or hearing problems. Denied any sore throat. CARDIOVASCULAR: No chest pain, orthopnea, PND, no palpitations, no syncope. PULMONARY: No shortness of breath, no cough, no hemoptysis. GASTROINTESTINAL: No diarrhea, no nausea, no vomiting, no abdominal pain. Normoactive bowel sounds. NEUROLOGICAL: As described in HPI. HEMATOLOGICAL: Denies any bleeding or petechiae. GENITOURINARY: Denies any burning micturition, frequency, or urgency. MUSCULOSKELETAL/RHEUMATOLOGICAL: Denies any joint pain, swelling, or any muscle pain. ENDOCRINE: Denies any polyuria or polydipsia. The rest of the 14 point review of systems is negative. Home medications include: 1. Plavix. 2. Aspirin. 3. Multivitamin. 4. Atorvastatin. 5. Keflex. 6. Folic acid. 7. Hydrocodone acetaminophen. 8. Lisinopril. 9. Magnesium oxide. 10. Metoprolol. 11. Pantoprazole. 12. Senna. 13. Thiamine. ALLERGIES: No known drug allergies. PAST MEDICAL HISTORY: Coronary artery disease. Patient had his recent CABG, CVA in the past, hyperlipidemia, hypertension, myocardial infarction in the past, appendectomy, cardiac catheterization, hernia repair in the past. SOCIAL HISTORY: Former smoker. Quit smoking 1999. Denied any alcohol abuse or any drug abuse. FAMILY HISTORY: Irrelevant at this point of time, is significant for hypertension in multiple family members. PHYSICAL EXAMINATION: Temperature 97.1, pulse of 66, respiratory rate of 18, blood pressure is 139/81, saturating at 97% on room. PHYSICAL EXAMINATION: GENERAL: The patient is alert and oriented x3, not in any acute distress. Well developed, well nourished. HEENT: Pupils are round and equally reacting to light. EOMI. No scleral icterus. No conjunctival pallor. Normocephalic, atraumatic. No pharyngeal erythema. No thyromegaly. CARDIOVASCULAR: S1 and S2 present. No murmurs, rubs, or gallops. PULMONARY: Chest is clear to auscultation, no wheezing or crackles. ABDOMEN: Soft, nontender, nondistended, normoactive bowel sounds. No palpable organomegaly. MUSCULOSKELETAL: No joint swelling or deformity. EXTREMITIES: No cyanosis, clubbing, or pedal edema. NEUROLOGICAL: Gross neurological examination did not reveal any focal deficits. SKIN: No rashes. LABORATORY DATA: CBC, CMP, essentially within normal limits. His imaging as mentioned above. ASSESSMENT AND PLAN: 1. Possibility of transient ischemic attack or a stroke. Patient will be evaluated by Neurology. Workup is already done and we will continue with dual antiplatelet therapy and after the evaluation by Neurology. Patient probably can be discharged. 2. Coronary artery disease with recent for coronary artery bypass graft. 3. Hyperlipidemia. 4. Hypertension. 5. History of atrial flutter. PLAN: Patient will be discharged today without any changes in medications. Patient will follow with Dr. Magdaleno Hung as an outpatient. Patient will be discharged. Patient already has home care set up and patient already has appointment set up for tomorrow with Dr. Hung.
[2017-01-12] MEDS: ATORVASTATIN 40 MG TAB PO SCH (20:43)
[2017-01-12] MEDS: SENNOSIDES-DOCUSATE SODIUM 1 EACH TAB PO SCH (20:45)
[2017-01-13] MEDS: PANTOPRAZOLE 40 MG TABLET PO SCH (06:25)
[2017-01-13 07:16] LABS: Cholesterol 124 mg/dL (<200); HDL Cholesterol 32 mg/dL (40-60); Triglycerides 95 mg/dL (<150)
--- NOTE | 2017-01-13 08:47 | CT ---
EXAMINATION TYPE: CT brain wo con DATE OF EXAM: 01/13/2017 8:33 AM COMPARISON: 01/11/2017 HISTORY: 76-year-old male, poor historian. Follow up for CVA. TECHNIQUE: Examination was done in axial plane without intravenous contrast. Coronal and sagittal r econstructions performed. CT DLP: 1014 mGycm Automated exposure control for dose reduction was used. FINDINGS: Redemonstrated is encephalomalacia in the region of the left temporoparietal junction relating to rem ote infarct. Additional encephalomalacia lateral left frontal lobe relating to prior infarct. There i s some chronic cortical and subcortical hypodensity also seen along the posterior left occipital lobe and suggestion of old infarcts involving both cerebellar hemispheres. No evidence for acute ischemic change, acute intracranial hemorrhage, mass, mass effect, midline shif t, or extra-axial fluid collection. No hydrocephalus. No effacement of cerebral sulci or basal subara chnoid cisterns. Khalil-white matter differentiation is maintained. There is moderate to severe confluent white matter hypodensities throughout both cerebral hemispheres , stable from prior. Visualized paranasal sinuses and mastoid air cells are pneumatized. Orbits and globes are intact. Dense cerumen plugging the left external auditory canal. IMPRESSION: 1. Stable chronic multifocal infarcts, largest involving the left temporoparietal junction but additi onal infarcts involving the lateral left frontal lobe, posterior left occipital lobe, and both cerebe llar hemispheres. 2. Moderate to severe confluent burden of chronic small vessel ischemic disease. 3. No evolving large vascular territory infarct is seen; MRI can be considered if there is concern fo r subtle acute ischemia. 4. Dense cerumen plug within the left external auditory canal.
[2017-01-13] MEDS: LISINOPRIL 10 MG TAB PO SCH (09:26)
[2017-01-13] MEDS: ASPIRIN 325 MG TAB PO SCH (09:26)
[2017-01-13] MEDS: METOPROLOL TARTRATE 50 MG TAB PO SCH ×2 (09:26→22:38)
[2017-01-13] MEDS: CLOPIDOGREL 75 MG TAB PO SCH (09:26)
--- NOTE | 2017-01-13 10:01 | CONS ---
DATE OF CONSULTATION: 01/12/2017 CHIEF COMPLAINT: Transient ischemic attack. HISTORY OF PRESENT ILLNESS: Mr. Falcon is a pleasant 76-year-old male who is being evaluated today on 01/12/17 by the neurology service per the request of Dr. Jain for a transient ischemic attack. The patient was brought into [facility] Emergency Room with complaints of a transient episode of significant dysarthria. The patient's speech was quite slurred for a few hours according to him. The patient does have a previous history of stroke and also has coronary artery disease with recent coronary artery bypass grafting. He is currently on aspirin and Plavix. During this episode of dysarthria, he denies having any lateralizing numbness or weakness. The patient does have a history of previous stroke which did affect his speech, but he did have extensive speech therapy which provided him with significant improvements. At the time of my evaluation, he is back to his baseline. I did review his CT scan of the brain, which showed an old ischemic stroke involving the left temporal lobe. There was questionable evidence of a subacute ischemic stroke involving the left frontal lobe. Small vessel ischemic changes were seen. A carotid Doppler was done, which showed no hemodynamically significant stenosis. His CBC showed mild anemia with a hemoglobin of 11.3 and hematocrit of 34%. His comprehensive metabolic profile was normal. PAST MEDICAL HISTORY: Coronary artery disease with recent coronary artery bypass grafting, history of ischemic stroke, dyslipidemia, hypertension, history of myocardial infarction, hernia repair and appendectomy. SOCIAL HISTORY: The patient quit smoking approximately 15 years ago. He denies any alcohol or drug use. FAMILY HISTORY: Hypertension. HOME MEDICATIONS: Reviewed in the chart. ALLERGIES: No known drug allergies. REVIEW OF SYSTEMS: CONSTITUTIONAL: Negative. EYES: Negative. ENT: Negative. CARDIOVASCULAR: As mentioned above. RESPIRATORY: Negative. NEUROLOGICAL: As mentioned above. GASTROINTESTINAL: Negative. GENITOURINARY: Negative. DERMATOLOGICAL: Negative. PSYCHIATRIC: Negative. ENDOCRINE: Negative. MUSCULOSKELETAL: Positive for occasional joint pain. PHYSICAL EXAM: Vital signs show a temperature of 97.1, pulse 66, respirations 18, blood pressure 139/81. GENERAL APPEARANCE: The patient is a well-developed male who appears to be in no acute distress. HEENT: Normocephalic, atraumatic, no facial asymmetry is seen. Extraocular muscles are intact. Neck is supple with no masses felt. CARDIOVASCULAR: Regular rate and rhythm. ABDOMEN: Nontender, nondistended. Extremities showed no edema or clubbing. NEUROLOGICAL EXAM: The patient is alert, aware, and oriented x3. Speech is slightly dysarthric, but according to the patient and his son this is his baseline. Language testing was normal. Strength is full in all 4 extremities. Sensory exam was normal to light touch in all 4 extremities. No tremors or seizure-like activity is seen. No facial asymmetry is noticed on cranial nerve testing. IMPRESSION: 1. Acute ischemic stroke, left frontal lobe. 2. History of previous ischemic stroke, left temporal lobe. 3. Dysarthria, resolved. 4. Coronary artery disease, status post coronary artery bypass grafting. 5. Hypertension. RECOMMENDATIONS: The patient's symptoms are consistent with a transient ischemic attack, but his CT scan of the brain showed evidence of a subacute ischemic stroke involving the left frontal lobe. I had a lengthy discussion with the patient and his son regarding these findings. I will repeat a CT scan of the brain tomorrow morning. His carotid Doppler showed no hemodynamically significant stenosis. The patient is already on statin therapy and antiplatelet therapy. I will order a fasting lipid panel, EEG and serum homocysteine level. Continue neuro checks. I will continue to follow with you. Further recommendations to follow. Thank you for allowing me to participate in the care of your patient. If you have any questions, please feel free to contact me.
--- NOTE | 2017-01-13 10:18 | P.PN ---
Subjective Principal diagnosis: Admitted for TIA like symptoms which resolved by the time the patient was admitted. POD #21 off-pump CABG 3 with ISIDRO to the LAD and saphenous vein graft sequentially to diagonal 1 and diagonal 2. Patient currently sitting up in bed in no apparent distress. Frustrated because he would like to go home. He does not feel his symptoms warrant remaining in the hospital. Objective - Vital Signs Vital signs: Vital Signs Temp 97.2 F L 01/13/17 07:34 Pulse 69 01/13/17 07:34 Resp 18 01/13/17 07:34 BP 127/69 01/13/17 07:34 Pulse Ox 93 L 01/13/17 07:36 Intake & Output 01/12/17 01/13/17 01/13/17 18:59 06:59 18:59 Intake Total 960 540 Balance 960 540 Weight 79.3 kg Intake: Oral 960 540 Other: Voiding Method Toilet Toilet # Voids 1 0 # Bowel Movements 1 - Constitutional General appearance: Present: cooperative, no acute distress - Respiratory Details: Lungs sounds diminished bilaterally. Respirations even, nonlabored. Remains on room air. Able to achieve 2000 mL on incentive spirometry. Effective cough. - Cardiovascular Details: S1, S2 present. Regular rate and rhythm, normal sinus rhythm on telemetry. Chest stable. Heart hugger in place with patient demonstrating appropriate use. - Gastrointestinal Gastrointestinal Comment(s): Abdomen soft, nontender, nondistended. Active bowel sounds 4 quadrants. - Genitourinary Genitourinary Comment(s): Continues to void clear, yellow urine. - Integumentary Integumentary Comment(s): Anterior chest incision well approximated. - Neurologic Neurologic Comment(s): Patient's displays normal speech patterns at this time, no slurring of words. - Musculoskeletal Musculoskeletal: Present: gait normal, strength equal bilaterally - Psychiatric Psychiatric: Present: A&O x's 3, appropriate affect, intact judgment & insight - Allied health notes Allied health notes reviewed: nursing - Labs CBC & Chem 7: 01/12/17 06:22 01/12/17 06:20 Labs: Abnormal Lab Results - Last 24 Hours (Table) 01/13/17 Range/Units 06:36 HDL Cholesterol 32 L (40-60) mg/dL - Imaging and Cardiology CT Scan - head: report reviewed, image reviewed Assessment and Plan (1) Hypertension Status: Acute (2) Hyperlipidemia Status: Acute (3) History of stroke Status: Acute (4) History of coronary artery bypass graft Status: Acute Plan: 1. Continue aspirin, Plavix, statin, beta eric, SARAI inhibitor. 2. No signs of stroke, no indication for need for admittance. Repeat CT of the brain this morning demonstrates no new infarct. 3. Would discharge patient home from our standpoint. Time with Patient: Greater than 30
[2017-01-13] MEDS: FOLIC ACID 1 MG TAB PO SCH (12:13)
[2017-01-13] MEDS: THIAMINE 100 MG TAB PO SCH (12:13)
[2017-01-13] MEDS: MULTIVITAMINS, THERA 1 EACH TAB PO SCH (12:13)
--- NOTE | 2017-01-13 18:43 | PN ---
Patient a 76-year-old who came in with slurred speech. Patient had a repeat CT which did show some new areas of stroke in the left occiput lobe and bilateral her cerebellar hemispheres. Additionally, these are the new areas of infarction additionally compared to his previous CT. Because of which there is a concern about embolic stroke, because of which neurology is recommending transesophageal echocardiogram. Patient is awaiting transesophageal echocardiogram. REVIEW OF SYSTEMS: CARDIOVASCULAR: No chest pain, no orthopnea, no PND, no palpitations. PULMONARY: Denied any shortness of breath. No cough or hemoptysis. GASTROINTESTINAL: No diarrhea, nausea or vomiting. No abdominal pain. Normoactive bowel sounds. NEUROLOGIC: No headaches, no weakness, no numbness. Medications were reviewed. PHYSICAL EXAMINATION: Temperature 98.0, pulse of 74, respiratory rate of 16, blood pressure is 127/79, saturating at 99% on room air. GENERAL: The patient is alert and oriented x3, not in any acute distress. Well developed, well nourished. HEENT: Pupils are round and equally reacting to light. EOMI. No scleral icterus. No conjunctival pallor. Normocephalic, atraumatic. No pharyngeal erythema. No thyromegaly. CARDIOVASCULAR: S1 and S2 present. No murmurs, rubs, or gallops. PULMONARY: Chest is clear to auscultation, no wheezing or crackles. ABDOMEN: Soft, nontender, nondistended, normoactive bowel sounds. No palpable organomegaly. MUSCULOSKELETAL: No joint swelling or deformity. EXTREMITIES: No cyanosis, clubbing, or pedal edema. NEUROLOGICAL: Gross neurological examination did not reveal any focal deficits. SKIN: No rashes. LABORATORY DATA: LDL is around 70, which is desired range. ASSESSMENT AND PLAN: 1. Stroke involving the left cerebral hemisphere along with bilateral cerebellar hemispheres. Concern for embolic phenomenon. The patient is already on aspirin and Plavix, which will be continued. A neurologist is recommending a transesophageal echocardiogram. 2. Coronary artery disease with recent CABG. 3. Hyperlipidemia. 4. Hypertension. 5. There is no documented atrial fibrillation history on the patient. Continue the present medications. LAM tomorrow. Continue to monitor. Patient will be transferred out of [facility] care.
[2017-01-13] MEDS: SENNOSIDES-DOCUSATE SODIUM 1 EACH TAB PO SCH (22:38)
[2017-01-13] MEDS: ATORVASTATIN 40 MG TAB PO SCH (22:38)
--- NOTE | 2017-01-14 06:06 | P.PN ---
Subjective Principal diagnosis: Multiple Infarct CVA Patient is a 76-year-old male being followed by neurology for initially TIA. However it is been confirmed via imaging that the patient as multiple infarct CVA (left frontal, bilateral cerebellar and left occipital). Patient was originally brought to emergency department with complaints of transient episodes of significant dysarthria. Patient's speech was quite slurred for a few hours according to the patient. He does have a previous history of stroke and also coronary artery disease with recent coronary artery bypass graft. His medications included aspirin and Plavix at time of arrival. During the dysarthria, he did not have lateralizing numbness or weakness. His previous stroke did affect his speech which did improve significantly after extensive speech therapy. On initial contact today, the patient was supine in bed in no acute distress and he reported he was still at baseline. Dr Noonan had been in contact with radiology during the morning regarding the patient's most recent MRI noted above. I had placed the order for the LAM as a result of the imaging findings. Objective - Vital Signs Vital signs: Vital Signs Temp 97.5 F L 01/13/17 23:00 Pulse 82 01/13/17 23:00 Resp 18 01/13/17 23:00 BP 105/70 01/13/17 23:00 Pulse Ox 94 L 01/13/17 23:00 Intake & Output 01/13/17 01/13/17 01/14/17 06:59 18:59 06:59 Intake Total 540 790 Balance 540 790 Weight 79.3 kg Intake: Oral 540 790 Other: Voiding Method Toilet Toilet # Voids 0 0 - Exam Constitutional: AOx3, cooperative Head: NC/AT Throat: Supple, no masses Respiratory: No increased work of breathing Cardiac: Regular rate and Rhythm GI: non tender, non distended Musculoskeletal: Tissue Packer strengths are equal bilaterally 5/5, Lower extremity strengths are equal bilaterally at 5/5. Neurological: CN II-XII in tact, patient was AOx3, speech still slightly dysarthric and language is normal, no unilateralizing weakness, no seizure activity note on physical exam. Sensation was normal. Integementary: no rash, no erythema Psychiatric: mood and affect appropriate - Labs CBC & Chem 7: 01/12/17 06:22 01/12/17 06:20 Labs: Abnormal Lab Results - Last 24 Hours (Table) 01/13/17 Range/Units 06:36 HDL Cholesterol 32 L (40-60) mg/dL Assessment and Plan (1) Stroke Status: Acute Plan: 1. Stroke: * Patient has documented imaging findings of stroke to the following areas: Left frontal, bilateral cerebellar, left occipital. * Neurology requested a LAM to investigate the underlying etiology. Request was placed earlier this morning as result of the imaging findings. * Lipitor increased to 80 mg QHS. * Continue Aspirin at existing dose and frequency * Continue Plavix at existing dose and frequency * Continue ongoing neuro reassessments as per existing orders. * Notify neurology with any status changes immediately * Status: Neurology will continue to follow provide updates as needed or warranted. Feel free to contact our office with any questions. * I discussed the patient's pertinent medical information with Dr. Noonan. He agrees with the plan of care as implemented.
--- NOTE | 2017-01-14 07:02 | EEG ---
DATE OF SERVICE: 01/13/2017 REASON FOR TESTING: Stroke. AGE: 76Y DESCRIPTION OF THE PROCEDURE: This EEG was performed using a 21-channel digital electroencephalograph, following the international 10 to 20 system. DESCRIPTION OF THE RECORDING: From the beginning of the tracing, and with the patient's eyes closed, the background rhythm was mostly consisting of 8 Hz alpha frequency in the posterior occipital leads. No obvious asymmetry is seen. Photic stimulation was performed with a good driving response seen. No pathological waves were elicited. Hyperventilation was not performed. The patient does reach stage II of sleep during the tracing and occasional sleep spindles are seen. No epileptiform discharges are noticed. His EKG lead showed a regular rate and rhythm. INTERPRETATION: This asleep and awake EEG can be considered within normal limits. There was no asymmetry seen. No epileptiform discharges were noticed. The absence of epileptiform discharges does not rule out the diagnosis of epilepsy, therefore, clinical correlation is recommended.
[2017-01-14] MEDS: BENZOCAINE SPRAY 100 APPLIC/CAN MUCOUS MEM ONE ×2 (09:30→09:35)
[2017-01-14] MEDS ORDERED: SODIUM CHLORIDE 0.9% 500 ML IV ONE (09:34)
[2017-01-14] MEDS ORDERED: MIDAZOLAM 2 MG/2 ML VIAL IV ONE (09:36)
[2017-01-14] MEDS ORDERED: fentaNYL (PF) 50 MCG/ML 2 ML AMP IV ONE (09:37)
[2017-01-14] MEDS: ASPIRIN 325 MG TAB PO SCH (10:10)
[2017-01-14] MEDS: METOPROLOL TARTRATE 50 MG TAB PO SCH (10:10)
[2017-01-14] MEDS: CLOPIDOGREL 75 MG TAB PO SCH (10:10)
[2017-01-14] MEDS: LISINOPRIL 10 MG TAB PO SCH (10:10)
[2017-01-14] MEDS: PANTOPRAZOLE 40 MG TABLET PO SCH (10:11)
[2017-01-14] MEDS: FOLIC ACID 1 MG TAB PO SCH (10:58)
[2017-01-14] MEDS: MULTIVITAMINS, THERA 1 EACH TAB PO SCH (10:58)
[2017-01-14] MEDS: THIAMINE 100 MG TAB PO SCH (10:58)
[2017-01-14 11:04] VITALS: RESP 18; TEMP 97.9
--- NOTE | 2017-01-14 11:29 | ECHOT ---
DATE OF SERVICE: INDICATION: TIA. PROCEDURE NOTE: After obtaining informed consent, transesophageal echocardiogram was performed in the left lateral position using an Omniplane probe. Local and IV sedation were obtained using Xylocaine spray, 2 mg of Versed and 25 mcg of fentanyl. Patient tolerated the procedure well without any obvious immediate complications. FINDINGS: 1. There is no intracardiac thrombus within the left atrium, right atrium, right ventricle, left ventricle or left atrial appendage. 2. Interatrial septum appears aneurysmal, but there is no evidence of [id number] shunt by agitated saline contrast study or [id number]-ic-zlufw shunt by color flow Doppler. 3. Mitral valve is anatomically normal. There is mild mitral regurgitation noted. 4. Aortic valve is a 3-leaflet valve. There is no evidence of aortic stenosis or regurgitation. 5. Tricuspid valve appears normal. There is mild tricuspid regurgitation noted. 6. Left ventricle has normal size and shows atypical septal motion with mild LV dysfunction with an ejection fraction of 45%. 7. Aortic root appears mildly dilated measuring around 3.7 to 3.8 cm primarily at the level of the sinuses. CONCLUSIONS: 1. No intracardiac thrombus. 2. No evidence of shunting across the interatrial septum. 3. Mild left ventricular dysfunction.
[2017-01-14 11:50] VITALS: BP 108/74; PULSE 62
[2017-01-14] MEDS ORDERED: ATORVASTATIN 80 MG TAB PO SCH (21:00)
--- NOTE | 2017-01-14 21:36 | P.PN ---
Subjective Principal diagnosis: Multiple Infarct CVA Patient is a 76-year-old male being followed by neurology for initially TIA. However it is been confirmed via imaging that the patient as multiple infarct CVA (left frontal, bilateral cerebellar and left occipital). Patient was originally brought to emergency department with complaints of transient episodes of significant dysarthria. Patient's speech was quite slurred for a few hours according to the patient. He does have a previous history of stroke and also coronary artery disease with recent coronary artery bypass graft. His medications included aspirin and Plavix at time of arrival. During the dysarthria, he did not have lateralizing numbness or weakness. His previous stroke did affect his speech which did improve significantly after extensive speech therapy. On initial contact today, the patient was supine in bed in no acute distress and he reported he was still at baseline. Patient has had his LAM and it was unremarkable for significant contributory factors. Patient was AOx3 and requesting to be discharged. Objective - Vital Signs Vital signs: Vital Signs Temp 97.9 F 01/14/17 10:30 Pulse 62 01/14/17 11:30 Resp 18 01/14/17 11:30 BP 108/74 01/14/17 11:30 Pulse Ox 96 01/14/17 11:30 Intake & Output 01/14/17 01/14/17 01/15/17 06:59 18:59 06:59 Intake Total 790 100 Balance 790 100 Intake: IV 100 Oral 790 Other: # Voids 2 2 - Exam Constitutional: AOx3, cooperative Head: NC/AT Throat: Supple, no masses Respiratory: No increased work of breathing Cardiac: Regular rate and Rhythm GI: non tender, non distended Musculoskeletal: Principal Data Architect strengths are equal bilaterally 5/5, Lower extremity strengths are equal bilaterally at 5/5. Neurological: CN II-XII in tact, patient was AOx3, speech still slightly dysarthric and language is normal, no unilateralizing weakness, no seizure activity note on physical exam. Sensation was normal. Integementary: no rash, no erythema Psychiatric: mood and affect appropriate - Labs CBC & Chem 7: 01/12/17 06:22 01/12/17 06:20 Assessment and Plan (1) Stroke Status: Acute Plan: 1. Stroke: * Patient has documented imaging findings of stroke to the following areas: Left frontal, bilateral cerebellar, left occipital. * LAM was unremarkable * Lipitor increased to 80 mg QHS. * Continue Plavix at existing dose and frequency * Status: Neurology will clear patient for discharge from a neurological standpoint. Patient to follow up in the office in 10-14 days. * I discussed the patient's pertinent medical information with Dr. Noonan. He agrees with the plan of care as implemented.
--- NOTE | 2017-01-15 10:58 | DS ---
DATE OF ADMISSION: 01/11/2017 DATE OF DISCHARGE: 01/14/2017 Patient is a 76-year-old admitted with ( ). Patient does have evidence of new areas of stroke in the left occipital lobe and left parietal lobe along with bilateral cerebellar hemispheres, because of which there was concern about embolic phenomenon, because of which the patient underwent a LAM, which was negative. Patient was cleared by Neurology, will be discharged. Patient does not have any residual symptoms at this point of time, will not need physical therapy and patient will follow up with Neurology as an outpatient. Patient was seen and examined on the day of discharge. PHYSICAL EXAMINATION: VITAL SIGNS: Stable. GENERAL: The patient is alert and oriented x3, not in any acute distress. Well developed, well nourished. HEENT: Pupils are round and equally reacting to light. EOMI. No scleral icterus. No conjunctival pallor. Normocephalic, atraumatic. No pharyngeal erythema. No thyromegaly. CARDIOVASCULAR: S1 and S2 present. No murmurs, rubs, or gallops. PULMONARY: Chest is clear to auscultation, no wheezing or crackles. ABDOMEN: Soft, nontender, nondistended, normoactive bowel sounds. No palpable organomegaly. MUSCULOSKELETAL: No joint swelling or deformity. EXTREMITIES: No cyanosis, clubbing, or pedal edema. NEUROLOGICAL: Gross neurological examination did not reveal any focal deficits. SKIN: No rashes. FINAL DIAGNOSES: 1. Stroke in the left cerebral hemispheres and bilateral cerebellar hemispheres. Patient will be discharged today with aspirin and Plavix, which he will continue and patient is also on statin, which he will continue. 2. Coronary artery disease with recent coronary artery bypass graft. 3. Hyperlipidemia. 4. Hypertension. [facility] will follow the patient. Patient will follow with Dr. Michael Noonan on 26 of January at 10:15, Dr. Magdaleno Hung in 3 to 7 days. Patient already has an appointment in Dr. Hung's clinic, with Dr. Jordi Rizvi on at 2:00 p.m. Activity as tolerated. Cardiac diet.
== END 2017-01-14 15:09 | disposition home health service (06) | DRG 66 ==
LOC: EC 15:23 → 6SEL 16:56 → 4MS4W 01-13 17:55
PROVIDERS: ADMIT Internal Medicine; ATTEND Internal Medicine
DX: I63.9 Cerebral infarction, unspecified (principal); D64.9 Anemia, unspecified; I10 Essential (primary) hypertension; E78.5 Hyperlipidemia, unspecified; I25.10 Atherosclerotic heart disease of native coronary artery without angina pectoris; I25.2 Old myocardial infarction; R47.81 Slurred speech; H91.93 Unspecified hearing loss, bilateral; Z79.82 Long term (current) use of aspirin; Z79.02 Long term (current) use of antithrombotics/antiplatelets; Z79.899 Other long term (current) drug therapy; Z86.73 Personal history of transient ischemic attack (TIA), and cerebral infarction without residual deficits; Z87.891 Personal history of nicotine dependence; Z95.1 Presence of aortocoronary bypass graft; Z96.652 Presence of left artificial knee joint; Z82.49 Family history of ischemic heart disease and other diseases of the circulatory system
CPT/HCPCS: 36415; 70450; 71020; 80048; 80053; 80061; 82550; 82553; 83090; 83735; 84484; 85025; 85610; 85730; 93005; 93312; 93320; 93325; 93880; 94760; 95819; 99285

== ENCOUNTER → 2021-05-27 | Outpatient (CLI) | payer MEDICARE ==
--- NOTE | 2021-05-27 14:21 | XR ---
EXAMINATION TYPE: XR lumbosacral spine min 4V DATE OF EXAM: 05/27/2021 COMPARISON: None HISTORY: Back pain TECHNIQUE: 5 view lumbar spine FINDINGS: There are 5 lumbar-type vertebral bodies. The pedicles are intact. Mild facet degenerative change is present L5-S1. The remaining facets appear normal. No spondylolytic defects are evident. Th ere is a mild grade 1 retrolisthesis of L4 posterior L5. There is loss of disc height at L5-S1. Poste rior disc space narrowing is present at L3-4 and L1-L2. Vascular calcification is within the aorta. IMPRESSION: 1. Degenerative disc change L5-S1 and L3-4 and L1-2. 2. Suggestion of mild grade 1 retrolisthesis of L4 posterior on L5.
== END | disposition home or self-care (01) ==
LOC: RADXRYALE 09:22
PROVIDERS: ATTEND Physician Assistant Medical
DX: M51.37 Other intervertebral disc degeneration, lumbosacral region (principal)
CPT/HCPCS: 72110

== ENCOUNTER → 2021-12-11 | Outpatient (CLI) | payer MEDICARE ==
--- NOTE | 2021-12-11 14:23 | XR ---
EXAMINATION TYPE: XR lumbosacral spine min 4V DATE OF EXAM: 12/11/2021 COMPARISON: 05/27/2021 HISTORY: Bilateral hip and knee pain TECHNIQUE: 5 view lumbar spine FINDINGS: Degenerative disc changes present throughout the lumbar spine, greatest at L5-S1. Anterior vertebral body spurring is present. Alignment appears normal on this exam. Vertebral body heights are preserved. No spondylolytic defects are evident. Facet degenerative changes present L4-5. IMPRESSION: 1. Degenerative disc changes lumbar spine.
== END | disposition home or self-care (01) ==
LOC: RADXRYALE 13:41
PROVIDERS: ATTEND Physician Assistant Medical
DX: M51.36 Other intervertebral disc degeneration, lumbar region (principal)
CPT/HCPCS: 72110

== ENCOUNTER → 2021-12-24 | Outpatient (CLI) | payer MEDICARE | END | disposition home or self-care (01) | LOC: RADUSWWP 12:14 | PROVIDERS: ATTEND Family Medicine | DX: M79.662 Pain in left lower leg (principal); M79.661 Pain in right lower leg; M51.36 Other intervertebral disc degeneration, lumbar region; I25.10 Atherosclerotic heart disease of native coronary artery without angina pectoris | CPT/HCPCS: 93922 ==

== ENCOUNTER → 2021-12-25 | Outpatient (CLI) | payer MEDICARE ==
--- NOTE | 2021-12-25 09:45 | XR ---
EXAMINATION TYPE: XR chest 2V DATE OF EXAM: 12/25/2021 COMPARISON: 01/11/2017 HISTORY: Shortness of breath TECHNIQUE: Frontal and lateral views of the chest are obtained. FINDINGS: Scattered senescent parenchymal changes noted. Hyperinflation compatible with COPD. Increased basilar markings may reflect developing infiltrate. Small effusions suggested. Correlate cl inically. Heart size is stable. Mediastinal structures are stable and grossly unremarkable. No evidence for hilar prominence. Degenerative changes dorsal spine. IMPRESSION: 1. Increased basilar markings may reflect developing infiltrate. Small effusions suggested. Correlate clinically.
== END | disposition home or self-care (01) ==
LOC: RADXRYALE 09:20
PROVIDERS: ATTEND Physician Assistant
DX: R06.02 Shortness of breath (principal)
CPT/HCPCS: 71046

== ENCOUNTER 2022-05-12 11:09 | Day surgery (SDC) | payer MEDICARE ==
[2022-05-10 11:09] VITALS: BMI 26.1
[2022-05-12] MEDS: LACTATED RINGERS 1,000 ML IV SCH ×2 (11:53→12:11)
[2022-05-12 11:56] VITALS: TEMP 97.2
[2022-05-12] MEDS ORDERED: PROPOFOL 10 MG/ML 20 ML VIAL IV ONE (12:12)
[2022-05-12] MEDS ORDERED: fentaNYL (PF) 50 MCG/ML 2 ML AMP ONE (12:12)
[2022-05-12 12:46] VITALS: BP 140/75; PULSE 87; RESP 18
[2022-05-12 13:32] LABS: HCT 23.4 % (39.0-53.0); HGB 7.5 gm/dL (13.0-17.5); Hypochromasia Slight; MCH 33.2 pg (25.0-35.0); MCHC 32.1 g/dL (31.0-37.0); MCV 103.7 fL (80.0-100.0); Macrocytosis Moderate; Mean Platelet Volume 8.9; Platelet Count 262 k/uL (150-450); Poikilocytosis Slight; RBC 2.26 m/uL (4.30-5.90); RDW 15.9 % (11.5-15.5); Reticulocyte % 4.2 % (0.5-2.0)
[2022-05-12 14:39] LABS: Neutrophils % (M) 39 %
[2022-05-12 14:40] LABS: Metamyelocytes % 1 %; Myelocytes % 1 %; Nucleated Red Blood Cells 0 /100 WBC (0-0); Total Cells Counted 200
[2022-05-12 14:43] LABS: Polychromasia Present
--- NOTE | 2022-05-12 21:42 | PCN ---
PROCEDURE NOTE DATE OF SURGERY: 05/12/2022 PROCEDURE: Bone marrow aspirate and biopsy. INDICATION: Pancytopenia. PROCEDURE DESCRIPTION: After obtaining consent from the patient, the procedure was performed in the endoscopy suite under general anesthesia performed by the anesthesia team. The patient was put in the left lateral decubital position. The right posterior superior iliac crest was localized. Skin was prepped with ChloraPrep. All sterile procedures were followed. Two mL of 2% xylocaine was used for local anesthetic. Monoject needle was inserted and 15 mL of aspirate and a 2 cm core biopsy were obtained without any difficulties. Pressure was applied afterwards. There was negligible blood loss. Patient tolerated the procedure very well without any immediate complications. MMODL / IJN: [id number] /
== END 2022-05-12 13:14 | disposition home or self-care (01) ==
LOC: OR 11:09
PROVIDERS: ATTEND Internal Medicine Hematology & Oncology
DX: D53.9 Nutritional anemia, unspecified (principal); D72.828 Other elevated white blood cell count; E78.5 Hyperlipidemia, unspecified; I10 Essential (primary) hypertension; I05.9 Rheumatic mitral valve disease, unspecified; I48.91 Unspecified atrial fibrillation; Z79.01 Long term (current) use of anticoagulants; Z79.52 Long term (current) use of systemic steroids; Z79.899 Other long term (current) drug therapy; Z90.49 Acquired absence of other specified parts of digestive tract; Z96.652 Presence of left artificial knee joint; Z95.1 Presence of aortocoronary bypass graft; Z98.890 Other specified postprocedural states; Z80.41 Family history of malignant neoplasm of ovary; Z80.8 Family history of malignant neoplasm of other organs or systems; Z86.19 Personal history of other infectious and parasitic diseases; Z87.891 Personal history of nicotine dependence; Z86.73 Personal history of transient ischemic attack (TIA), and cerebral infarction without residual deficits
CPT/HCPCS: 85025; 85045; 38222; J3010; J2704

== ENCOUNTER → 2022-06-08 | Outpatient (CLI) | payer MEDICARE ==
[~2022-06-08] MED LIST changes: -ALPRAZolam 0.25 MG TAB PO PRN; -ALPRAZolam 0.5 MG TAB PO PRN; -ASPIRIN 325 MG TAB PO STA; -ATORVASTATIN 80 MG TAB PO STA; -LIDOCAINE 1% INJ 10MG/ML (20 ML MDV) ONE; -NITROGLYCERIN SL TABS 0.4 MG TAB SUBLINGUAL PRN; -SODIUM CHLORIDE 0.9% 1,000 ML in EMPTY BAG 1 BAG IV ONE; +TIXAGEVIMAB/CILGAVIMAB (EUA) 300 MG/3 ML COMBO.PKG IM NR
[2022-06-08 08:16] VITALS: RESP 16; TEMP 98.4
[2022-06-08 09:00] VITALS: BP 117/64; PULSE 56
== END ==
LOC: PROCWHC3 08:01
PROVIDERS: ATTEND Internal Medicine Hematology & Oncology
DX: Z23 Encounter for immunization (principal); Z87.891 Personal history of nicotine dependence
CPT/HCPCS: Q0220; M0220